=== PATIENT | female | born 2000 | race Caucasian/White ===

== ENCOUNTER → 2019-03-29 10:27 | Outpatient (CLI) | payer OTHER, SELFPAY ==
[2019-03-29 10:07] VITALS: BMI 25.0
[2019-03-29 13:24] LABS: HIV - WCH Non-Reactive (Nonreactive)
[2019-03-30 20:07] LABS: Hepatitis Be Ab Negative (Negative)
[2019-03-30 20:33] LABS: Hepatitis B Core AB IgM Negative (Negative)
== END ==
PROVIDERS: Family Provider Student in an Organized Health Care Education/Training Program; PCP Student in an Organized Health Care Education/Training Program; Referring Provider Physician Assistant Surgical; Visit Provider Physician Assistant Surgical
DX: Z77.21 Contact with and (suspected) exposure to potentially hazardous body fluids (principal)
CPT/HCPCS: 36415; 86703; 86705; 86707

== ENCOUNTER → 2020-03-08 14:30 | Outpatient (CLI) | payer BC, SELFPAY ==
[2020-03-08 09:45] VITALS: BMI 25.7
[2020-03-11 03:06] LABS: Chlamydia By Nucleic Acid AMP Negative (Negative)
[2020-03-11 10:32] LABS: Gonococcus By Nucleic Acid AMP Negative (Negative)
[2020-03-13 14:30] LABS: HPV Reflexed? NOT INDICATED
== END ==
PROVIDERS: Visit Provider Nurse Practitioner Women's Health
DX: Z12.4 Encounter for screening for malignant neoplasm of cervix (principal); Z11.3 Encounter for screening for infections with a predominantly sexual mode of transmission
CPT/HCPCS: 87491; 87591; 88175; G0145

== ENCOUNTER → 2020-11-02 15:26 | Outpatient (CLI) | payer BC, SELFPAY ==
[2020-10-31 10:10] VITALS: BMI 25.0
--- NOTE | 2020-11-02 15:29 | US_ITS ---
STUDY: ULTRASOUND OF THE FEMALE PELVIS - COMPLETE REASON FOR EXAM: Female, 20 years old. Pain, iud LMP: Unknown TECHNIQUE: Transabdominal and Transvaginal TECHNICAL QUALITY: Adequate. COMPARISON: None. FINDINGS: The uterus is anteverted and is in a midline position. The uterus measures 7.4 cm x 3.2 cm x 2.8 cm. Normal uterine cervix. The endometrium measures 2.6 mm in thickness, and is hyperechoic. There is no demonstrated endometrial mass. There is no demonstrated myometrial mass. Heterogeneous appearance of the myometrium. I.U.D. - The patient does have an I.U.D.. The IUD is in the right side of the fundal portion of the uterus. The right ovary is visualized. The right ovary measures 2.8 cm x 3.6 cm x 2.3 cm. There is no right ovarian cyst or ovarian mass. There is no visualized right adnexal mass or complex lesion. There is normal arterial and normal venous vascularity. The left ovary is visualized. The left ovary measures 3.6 cm x 2.65 x 2.1 cm. There is no left ovarian cyst or ovarian mass. There is no visualized left adnexal mass or complex lesion. There is normal arterial and normal venous vascularity. There is no fluid in the cul-de-sac. The pre void volume of the bladder was 279 ml. US/Transvaginal Non- IMPRESSION: The IUD is seen within the fundal portion of the uterus to the right side of the midline. Electronically Signed: Ricky Pratt MD at 8:23 EDT , Service support ,
--- NOTE | 2020-11-02 15:29 | US_ITS ---
STUDY: ULTRASOUND OF THE FEMALE PELVIS - COMPLETE REASON FOR EXAM: Female, 20 years old. Pain, iud LMP: Unknown TECHNIQUE: Transabdominal and Transvaginal TECHNICAL QUALITY: Adequate. COMPARISON: None. FINDINGS: The uterus is anteverted and is in a midline position. The uterus measures 7.4 cm x 3.2 cm x 2.8 cm. Normal uterine cervix. The endometrium measures 2.6 mm in thickness, and is hyperechoic. There is no demonstrated endometrial mass. There is no demonstrated myometrial mass. Heterogeneous appearance of the myometrium. I.U.D. - The patient does have an I.U.D.. The IUD is in the right side of the fundal portion of the uterus. The right ovary is visualized. The right ovary measures 2.8 cm x 3.6 cm x 2.3 cm. There is no right ovarian cyst or ovarian mass. There is no visualized right adnexal mass or complex lesion. There is normal arterial and normal venous vascularity. The left ovary is visualized. The left ovary measures 3.6 cm x 2.65 x 2.1 cm. There is no left ovarian cyst or ovarian mass. There is no visualized left adnexal mass or complex lesion. There is normal arterial and normal venous vascularity. There is no fluid in the cul-de-sac. The pre void volume of the bladder was 279 ml. US/Pelvic (Non ) IMPRESSION: The IUD is seen within the fundal portion of the uterus to the right side of the midline. Electronically Signed: Ricky Pratt MD at 8:23 EDT , Service support ,
== END ==
PROVIDERS: Referring Provider Nurse Practitioner Women's Health; Visit Provider Nurse Practitioner Women's Health
DX: R10.2 Pelvic and perineal pain (principal); Z30.431 Encounter for routine checking of intrauterine contraceptive device
CPT/HCPCS: 76830; 76856

== ENCOUNTER → 2020-12-14 | Outpatient (CLI) | payer BC, SELFPAY | END | disposition home or self-care (01) | LOC: LABSPEC 16:21 | PROVIDERS: Referring Provider Nurse Practitioner Women's Health; Visit Provider Nurse Practitioner Women's Health | DX: N76.0 Acute vaginitis (principal); R30.9 Painful micturition, unspecified | CPT/HCPCS: 87070; 87086; 87205 ==

== ENCOUNTER → 2021-02-20 08:38 | Outpatient (CLI) | payer BC, SELFPAY ==
[2021-02-20 12:23] LABS: Absolute Lymphocyte Count 2.49 X10^3/uL (0.83-4.51); Absolute Neutrophil Count 3.2 X10^3/uL (2.0-7.7); Basophil# 0.03 X10^3/uL; Basophil% 0.5 % (0-1); Eosinophil# 0.16 X10^3/uL; Eosinophils% 2.5 % (0-5); Hematocrit 39.9 % (37-47); Hemoglobin 13.1 g/dL (12.0-15.0); Lymphocyte # 2.49 X10^3/ul (0.83-4.51); Lymphocyte % 39.1 % (19-41); Mean Corp Hgb Conc 32.8 g/dL (32-36); Mean Corpuscular Volume 91.5 fL (81-99); Mean Platelet Vol. 11.1 fl (6.2-12.0); Monocyte# 0.53 X10^3/uL; Monocyte% 8.3 % (0-10); NRBC Flagged by Analyzer 0 % (0-5); Neutrophil # 3.15 X10^3/uL (2.7-7.7); Neutrophil % 49.4 % (47-70); Platelet Count 280 K/mm3 (150-450); RBC Distribution Width CV 12.3 % (11.6-14.6); RBC Distribution Width SD 41.2 fl (35.1-43.9); Red Blood Count 4.36 M/mm3 (4.2-5.4); White Blood Count 6.4 K/mm3 (4.4-11.0)
[2021-02-20 12:37] LABS: Vitamin D,25 Hydroxy 26.8 ng/mL
[2021-02-20 12:55] LABS: ALB/GLOB Ratio 1.3 RATIO (0.9-2.4); AST(SGOT) 15 U/L (15-37); Alanine Aminotransfer ALT/SGPT 27 U/L (13-56); Albumin, Serum 3.7 g/dL (3.2-5.0); Alkaline Phosphatase 55 U/L (45-117); Anion Gap 6 (5-15); BUN 14 mg/dL (7-18); BUN/Creat Ratio 15.9 RATIO (10-20); Calcium,Total 8.7 mg/dL (8.5-10.1); Chloride 107 mmol/L (98-107); Creatinine, Serum 0.88 mg/dL (0.55-1.02); EST Glomerular Filtration Rate 85 mL/min (>60); Est Glom Filt Rate - Afr Amer 102 mL/min (>60); Globulin 2.9 g/dL (2.2-4.2); Glucose 85 mg/dL (74-106); Potassium 3.9 mmol/L (3.5-5.1); Protein, Total 6.6 g/dL (6.4-8.2); Sodium Level 138 mmol/L (136-145); T4 Free Direct 0.98 ng/dL (0.76-1.46); Thyroid Stim Hormone (TSH) 1.53 uIU/mL (0.358-3.74)
== END ==
PROVIDERS: PCP Internal Medicine; Referring Provider Internal Medicine; Visit Provider Internal Medicine
DX: K58.9 Irritable bowel syndrome, unspecified (principal); Z13.29 Encounter for screening for other suspected endocrine disorder
CPT/HCPCS: 36415; 80053; 82306; 84439; 84443; 85025

== ENCOUNTER 2021-06-29 10:09 | Outpatient (CLI) | payer BC, SELFPAY ==
[2021-06-29 10:12] LABS: Bacteria 0 SEEN /hpf (None Seen); Mucous, Urine 0 SEEN /hpf (<or=2+); Red Blood Cells-Urine 0 SEEN /hpf (0-5); White Blood Cells 0 SEEN /hpf (0-5)
[2021-06-29 12:13] LABS: Color, Urine Yellow (Yellow); Glucose, Dipstick Normal (Normal); Ketone-Dipstick Negative (Negative); Leukocyte Esterase-Dipstick Negative /ul (Negative); Nitrite-Dipstick Negative (Negative); Occult Blood-Urine Negative /ul (Negative); Protein-Dipstick Negative (Negative); Urine Bilirubin Dipstick Negative (Negative); Urine Clarity Clear (Clear); Urine Urobilinogen Normal (Normal)
[2021-06-29 12:19] LABS: Squamous Epithelial Cells - UA 0-5 SEEN /hpf (5-10)
== END 2021-06-29 23:59 | disposition home or self-care (01) ==
LOC: LABSPEC 10:10
PROVIDERS: PCP Internal Medicine; Referring Provider Internal Medicine; Visit Provider Internal Medicine
DX: R30.0 Dysuria (principal)
CPT/HCPCS: 81001; 87086; 87088

== ENCOUNTER 2022-03-26 14:35 | Outpatient (CLI) | payer BC, SELFPAY | END 2022-03-26 23:59 | disposition home or self-care (01) | LOC: MTLAB 14:37 | PROVIDERS: Obstetrics & Gynecology; PCP Internal Medicine; Referring Provider Nurse Practitioner Women's Health; Visit Provider Nurse Practitioner Women's Health | DX: N92.6 Irregular menstruation, unspecified (principal) | CPT/HCPCS: 36415 ==

== ENCOUNTER → 2022-07-13 | Outpatient (CLI) | payer BC, SELFPAY ==
[2022-07-13 09:08] LABS: T4 Free Direct 1.28 ng/dL (0.76-1.46); Thyroid Stim Hormone (TSH) 0.92 uIU/mL (0.358-3.74)
[2022-07-16 16:31] LABS: Vitamin D 1,25-Dihydroxy 41.2 pg/mL (24.8-81.5)
[2022-07-19 09:44] LABS: Testosterone Free 0.5 pg/mL (0.0-4.2)
== END | disposition home or self-care (01) ==
LOC: LAB 07:55
PROVIDERS: PCP Internal Medicine; Visit Provider Registered Nurse
DX: Z31.69 Encounter for other general counseling and advice on procreation (principal)
CPT/HCPCS: 36415; 82627; 82652; 84402; 84439; 84443; 82626

== ENCOUNTER → 2022-12-09 | Outpatient (CLI) | payer BC, SELFPAY ==
--- NOTE | 2022-12-09 14:24 | US_ITS ---
EXAM: US PELVIS TRANSABDOMINAL AND TRANSVAGINAL, COMPLETE CLINICAL INDICATION: abdominal pain TECHNIQUE: Transabdominal and endovaginal pelvic ultrasound was performed with grayscale and color Doppler imaging. Endovaginal imaging was used for better evaluation of the endometrium and adnexa. COMPARISON: US Pelvis Transabdominal Endovaginal dated 11/02/2020 FINDINGS: UTERUS/CERVIX: Normal. The uterus measures 8.3 x 3.8 x 3.2 cm. The endometrial stripe measures 0.5 cm in thickness. Interval removal of the IUD. RIGHT OVARY: Right ovary 4.6, 4.1, 2.9. 3.3 cm right ovarian cyst. Blood flow is present in the right ovary. LEFT OVARY: Normal. Blood flow is present in the left ovary. The left ovary measures 3.6 x 2.5 x 2.3 cm. FREE FLUID: No adnexal mass or free pelvic fluid. US/Pelvic (Non ) IMPRESSION: Dominant 3.3 cm right ovarian cyst which is likely physiologic in nature. Normal uterus and left ovary. Pending Final Proof Editing
--- NOTE | 2022-12-09 14:24 | US_ITS ---
EXAM: US PELVIS TRANSABDOMINAL AND TRANSVAGINAL, COMPLETE CLINICAL INDICATION: abdominal pain TECHNIQUE: Transabdominal and endovaginal pelvic ultrasound was performed with grayscale and color Doppler imaging. Endovaginal imaging was used for better evaluation of the endometrium and adnexa. COMPARISON: US Pelvis Transabdominal Endovaginal dated 11/02/2020 FINDINGS: UTERUS/CERVIX: Normal. The uterus measures 8.3 x 3.8 x 3.2 cm. The endometrial stripe measures 0.5 cm in thickness. Interval removal of the IUD. RIGHT OVARY: Right ovary 4.6, 4.1, 2.9. 3.3 cm right ovarian cyst. Blood flow is present in the right ovary. LEFT OVARY: Normal. Blood flow is present in the left ovary. The left ovary measures 3.6 x 2.5 x 2.3 cm. FREE FLUID: No adnexal mass or free pelvic fluid. US/Transvaginal Non- IMPRESSION: Dominant 3.3 cm right ovarian cyst which is likely physiologic in nature. Normal uterus and left ovary. Electronically Signed: Edgar Almonte MD at 15:25 EDT ,
== END | disposition home or self-care (01) ==
LOC: US 14:24
PROVIDERS: PCP Internal Medicine; Referring Provider Registered Nurse; Visit Provider Registered Nurse
DX: R10.2 Pelvic and perineal pain (principal)
CPT/HCPCS: 76830; 76856

== ENCOUNTER → 2023-01-15 | Outpatient (CLI) | payer BC, SELFPAY ==
--- NOTE | 2023-01-15 11:42 | RAD_ITS ---
INDICATION: INFERTILITY EXAMINATION/TECHNIQUE: Routine hysterosalpingography was performed. Total Fluoroscopic Time: 25 seconds AND number of Fluoroscopic Images: 2 FINDINGS: The uterine cavity contour is unremarkable. Unicornuate uterus. There are no filling defects or abnormalities. The left fallopian tube is patent with free peritoneal spillage bilaterally. RAD/Salpingogram IMPRESSION: Patency of the left fallopian tube. Electronically Signed: Ricky Pratt MD at 14:35 EDT ,
--- NOTE | 2023-01-27 17:18 | OP.PCM_ITS ---
Report of Operation Date of Procedure: 01/15/23 Pre-Operative Diagnosis: infertility Post-Operative Diagnosis: infertility Surgery/Procedure Performed:: hysterosalpingogram Description of Surgical Findings:: Preop diagnosis: Infertility Postop diagnosis:Infertility , left tubal patency Procedure: Hysterosalpingogram Surgeon:Crystal Leonardo DO Implantable devices: None Complications: None Findings: Bilateral tubal patency and normal uterine cavity Operative details: Patient was taken to the x-ray room and was placed on the x- ray table and was in the dorsal lithotomy position. Speculum was placed in the vagina and the cervix prepped with Betadine and the HSG catheter was easily introduced into the uterus and speculum removed. Radiologist was brought in and while pushing radiopaque dye into the uterus via the HSG catheter the radiologist took multiple images and views and confirmed left tubal patency. No gross uterine filling defects or abnormalities were seen. All instruments removed from the vagina and the uterus without complication. Patient tolerated the procedure well. Surgeon: Crystal Leonardo exceptional children teacher assistant: None Type of Anesthesia: None Multi Select Codes Urinary/Genital Urinary/Genital CPT Codes: 45473 HSG/SIS
== END | disposition home or self-care (01) ==
PROVIDERS: PCP Internal Medicine; Visit Provider Obstetrics & Gynecology
DX: N97.9 Female infertility, unspecified (principal); R10.9 Unspecified abdominal pain
CPT/HCPCS: 58340; 74740; Q9967

== ENCOUNTER → 2023-01-20 | Outpatient (CLI) | payer BC, SELFPAY ==
[2023-01-20 12:33] LABS: HIV - WCH Non-Reactive (Nonreactive); Hepatitis B Surface Antigen Non-Reactive (Nonreactive); Hepatitis C Antibody Non-Reactive (Nonreactive); Rubella IgG Reactive (Nonreactive); Syphilis Antibodies Non-reactive
[2023-01-20 14:33] LABS: ALB/GLOB Ratio 1.3 RATIO (0.9-2.4); AST(SGOT) 11 U/L (15-37); Alanine Aminotransfer ALT/SGPT 19 U/L (13-56); Alkaline Phosphatase 58 U/L (45-117); Anion Gap 6 (5-15); BUN 10 mg/dL (7-18); BUN/Creat Ratio 11.7 RATIO (10-20); Calcium,Total 8.8 mg/dL (8.5-10.1); Chloride 106 mmol/L (98-107); Creatinine, Serum 0.85 mg/dL (0.55-1.02); EST Glomerular Filtration Rate 86 mL/min (>60); Est Glom Filt Rate - Afr Amer 105 mL/min (>60); Globulin 3.1 g/dL (2.2-4.2); Glucose 93 mg/dL (74-106); Potassium 3.6 mmol/L (3.5-5.1); Prolactin 22.6 ng/mL; Protein, Total 7.1 g/dL (6.4-8.2); Sodium Level 139 mmol/L (136-145); Thyroid Stim Hormone (TSH) 1.25 uIU/mL (0.358-3.74)
[2023-01-21 07:08] LABS: V-Zoster IgG (Immunity) 2524 index (Immune >165)
[2023-01-23 05:07] LABS: 17-Hydroxyprogesterone 45 ng/dL (.)
== END | disposition home or self-care (01) ==
LOC: LAB 10:53
PROVIDERS: PCP Internal Medicine; Referring Provider Obstetrics & Gynecology Reproductive Endocrinology; Visit Provider Obstetrics & Gynecology Reproductive Endocrinology
DX: Z00.00 Encounter for general adult medical examination without abnormal findings (principal); E03.9 Hypothyroidism, unspecified; Z11.59 Encounter for screening for other viral diseases; Z11.4 Encounter for screening for human immunodeficiency virus [HIV]; Z11.3 Encounter for screening for infections with a predominantly sexual mode of transmission; Z13.29 Encounter for screening for other suspected endocrine disorder; R73.09 Other abnormal glucose
CPT/HCPCS: 36415; 80053; 82627; 83036; 83498; 84146; 84403; 84443; 86703; 86762; 86780; 86787; 86803; 86850; 86900; 86901; 87340; 87491; 87591; 82626

== ENCOUNTER → 2023-02-07 | Outpatient (CLI) | payer BC, SELFPAY ==
--- NOTE | 2023-02-07 16:22 | US_ITS ---
STUDY: RENAL ULTRASOUND - COMPLETE REASON FOR EXAM: Female, 22 years old. UNICORNATE UTERUS TECHNIQUE: Ultrasound evaluation of the kidneys was performed with real-time and static garcia-scale imaging. COMPARISON: None. FINDINGS: RIGHT KIDNEY: Normal location of the right kidney, which is normal in size. The right kidney measures 10.5 cm. There is a normal cortex of the right kidney. The renal cortex measures 1.0 cm. There is no right renal mass or cyst. There are no right renal calculi. There is no right hydronephrosis. DISTAL RIGHT URETER: There is non-visualization of the distal right ureter. There is no demonstrated right ureterovesical junction calculus. There is a visualized right ureteral jet. LEFT KIDNEY: Normal location of the left kidney, which is normal in size. The left kidney measures 11.5 cm. There is a normal cortex of the left kidney. The renal cortex measures 1.1 cm. There is no left renal mass or cyst. There are no left renal calculi. There is no left hydronephrosis. DISTAL LEFT URETER: There is non-visualization of the distal left ureter. There is no demonstrated left ureterovesical junction calculus. There is a visualized left ureteral jet. BLADDER: The distended urinary bladder has a volume of 200 ml. The empty urinary bladder has a volume of ml. There is a normal wall thickness of the distended urinary bladder. There is no demonstrated mass within the urinary bladder. There are no demonstrated bladder calculi. US/Kidney and Bladder IMPRESSION: Normal ultrasound of the kidneys and urinary bladder. Electronically Signed: Jefferson Lima MD at 23:25 EDT ,
== END | disposition home or self-care (01) ==
LOC: US 16:21
PROVIDERS: PCP Internal Medicine; Referring Provider Obstetrics & Gynecology Reproductive Endocrinology; Visit Provider Obstetrics & Gynecology Reproductive Endocrinology
DX: Q51.4 Unicornate uterus (principal)
CPT/HCPCS: 76770

== ENCOUNTER → 2023-08-08 | Outpatient (CLI) | payer SELFPAY ==
[2023-08-12 00:07] LABS: Chlamydia By Nucleic Acid AMP Negative (Negative); Gonococcus By Nucleic Acid AMP Negative (Negative)
[2023-08-14 20:18] LABS: HPV Reflexed? NOT INDICATED
== END | disposition home or self-care (01) ==
PROVIDERS: PCP Internal Medicine; Referring Provider Obstetrics & Gynecology; Visit Provider Obstetrics & Gynecology
DX: O09.90 Supervision of high risk pregnancy, unspecified, unspecified trimester (principal); Z3A.00 Weeks of gestation of pregnancy not specified; Z12.4 Encounter for screening for malignant neoplasm of cervix
CPT/HCPCS: 87086; 87088; 87491; 87591; 88175; G0145

== ENCOUNTER → 2023-09-02 | Outpatient (CLI) | payer BC, SELFPAY ==
[2023-09-02 14:18] LABS: Absolute Lymphocyte Count 2.11 X10^3/uL (0.83-4.51); Basophil# 0.05 X10^3/uL; Basophil% 0.6 % (0-1); Eosinophil# 0.07 X10^3/uL; Eosinophils% 0.8 % (0-5); Hematocrit 37.6 % (37-47); Hemoglobin 12.5 g/dL (12.0-15.0); Lymphocyte # 2.11 X10^3/ul (0.83-4.51); Lymphocyte % 24.3 % (19-41); Mean Corp Hgb Conc 33.2 g/dL (32-36); Mean Corpuscular Hgb 29.1 pg (27.0-32.0); Mean Corpuscular Volume 87.4 fL (81-99); Mean Platelet Vol. 10.7 fl (6.2-12.0); Monocyte# 0.45 X10^3/uL; Monocyte% 5.2 % (0-10); NRBC Flagged by Analyzer 0 % (0-5); Neutrophil % 68.9 % (47-70); Platelet Count 264 K/mm3 (150-450); RBC Distribution Width CV 12.6 % (11.6-14.6); RBC Distribution Width SD 39.9 fl (35.1-43.9); White Blood Count 8.7 K/mm3 (4.4-11.0)
[2023-09-02 15:43] LABS: HIV - WCH Non-Reactive (Nonreactive); Hepatitis B Surface Antigen Non-Reactive (Nonreactive); Hepatitis C Antibody Non-Reactive (Nonreactive); Rubella IgG Reactive (Nonreactive); Syphilis Antibodies Non-reactive
== END | disposition home or self-care (01) ==
PROVIDERS: PCP Internal Medicine; Referring Provider Obstetrics & Gynecology; Visit Provider Obstetrics & Gynecology
DX: O09.90 Supervision of high risk pregnancy, unspecified, unspecified trimester (principal); Z3A.00 Weeks of gestation of pregnancy not specified
CPT/HCPCS: 36415; 85025; 86703; 86762; 86780; 86803; 86850; 86900; 86901; 87340

== ENCOUNTER → 2023-10-07 | Outpatient (CLI) | payer BC, SELFPAY | END | disposition home or self-care (01) | PROVIDERS: PCP Internal Medicine; Referring Provider Nurse Practitioner Women's Health; Visit Provider Nurse Practitioner Women's Health | DX: Z36.9 Encounter for antenatal screening, unspecified (principal) | CPT/HCPCS: 36415 ==

== ENCOUNTER → 2023-11-03 | Outpatient (CLI) | payer BC, SELFPAY | END | disposition home or self-care (01) | PROVIDERS: PCP Internal Medicine; Referring Provider Advanced Practice Midwife; Visit Provider Advanced Practice Midwife | DX: N89.8 Other specified noninflammatory disorders of vagina (principal) | CPT/HCPCS: 87070; 87205 ==

== ENCOUNTER → 2024-01-02 | Outpatient (CLI) | payer BC, SELFPAY ==
[2024-01-02 13:45] LABS: Absolute Lymphocyte Count 1.84 X10^3/uL (0.83-4.51); Absolute Neutrophil Count 8.3 X10^3/uL (2.0-7.7); Basophil# 0.02 X10^3/uL; Basophil% 0.2 % (0-1); Eosinophil# 0.17 X10^3/uL; Eosinophils% 1.5 % (0-5); Hematocrit 32.4 % (37-47); Hemoglobin 11.1 g/dL (12.0-15.0); Lymphocyte # 1.84 X10^3/ul (0.83-4.51); Lymphocyte % 16.6 % (19-41); Mean Corp Hgb Conc 34.3 g/dL (32-36); Mean Corpuscular Hgb 30.7 pg (27.0-32.0); Mean Corpuscular Volume 89.8 fL (81-99); Mean Platelet Vol. 11.1 fl (6.2-12.0); Monocyte# 0.63 X10^3/uL; Monocyte% 5.7 % (0-10); NRBC Flagged by Analyzer 0 % (0-5); Neutrophil # 8.34 X10^3/uL (2.7-7.7); Neutrophil % 75.4 % (47-70); Platelet Count 218 K/mm3 (150-450); RBC Distribution Width CV 13.1 % (11.6-14.6); RBC Distribution Width SD 42.8 fl (35.1-43.9); Red Blood Count 3.61 M/mm3 (4.2-5.4); White Blood Count 11.1 K/mm3 (4.4-11.0)
[2024-01-02 14:30] LABS: Glucose Challenge Gest 1H 50g 136 mg/dL (70-140)
[2024-01-02 18:13] LABS: HIV - WCH Non-Reactive (Nonreactive); Syphilis Antibodies Non-reactive
== END | disposition home or self-care (01) ==
LOC: LAB 13:19
PROVIDERS: PCP Internal Medicine; Referring Provider Obstetrics & Gynecology; Visit Provider Obstetrics & Gynecology
DX: O09.92 Supervision of high risk pregnancy, unspecified, second trimester (principal); Z13.1 Encounter for screening for diabetes mellitus; Z3A.00 Weeks of gestation of pregnancy not specified
CPT/HCPCS: 36415; 82950; 85025; 86703; 86780

== ENCOUNTER → 2024-01-07 | Outpatient (CLI) | payer BC, SELFPAY ==
[2024-01-07 09:57] LABS: Bedside Glucose 81 mg/dL (74-106)
[2024-01-07 10:30] LABS: Glucose GTT-Gestation. Fasting 88 mg/dL (<105)
[2024-01-07 11:45] LABS: Glucose GTT-Gestational 1 Hr 173 mg/dL (<190)
[2024-01-07 12:49] LABS: Glucose GTT-Gestational 2 Hr 135 mg/dL (<165)
[2024-01-07 14:00] LABS: Glucose GTT-Gestational 3 Hr 77 L (<145)
== END | disposition home or self-care (01) ==
LOC: LAB 09:07
PROVIDERS: PCP Internal Medicine; Referring Provider Obstetrics & Gynecology; Visit Provider Obstetrics & Gynecology
DX: Z13.1 Encounter for screening for diabetes mellitus (principal)
CPT/HCPCS: 36415; 82951; 82952; 82962

== ENCOUNTER → 2024-02-23 | Outpatient (CLI) | payer BC, SELFPAY | END | disposition home or self-care (01) | LOC: LABSPEC 14:53 | PROVIDERS: PCP Internal Medicine; Referring Provider Obstetrics & Gynecology; Visit Provider Obstetrics & Gynecology | DX: O09.92 Supervision of high risk pregnancy, unspecified, second trimester (principal); Z3A.00 Weeks of gestation of pregnancy not specified; O23.599 Infection of other part of genital tract in pregnancy, unspecified trimester | CPT/HCPCS: 87070; 87081; 87205 ==

== ENCOUNTER 2024-03-04 14:06 | Inpatient (IN) | payer BC, SELFPAY ==
[2024-03-04] VITALS (20 sets, daily range): BP systolic 111–137; BP diastolic 63–98; PULSE 74–112; RESP 15–20; TEMP 35.7–36.8; O2SAT 93–100; BMI 32.7
[2024-03-04 13:57] LABS: ROM Internal Control Test YES-OK TO RESULT pt. (Internal QC); ROM Patient Test POSITIVE (Negative)
[2024-03-04 13:58] LABS: Record Kit Lot#, ROM+ K1972
[2024-03-04] MEDS: Lactated Ringers 1,000 ML 999 ML IV (14:45)
[2024-03-04 14:59] LABS: Absolute Lymphocyte Count 1.77 X10^3/uL (0.83-4.51); Absolute Neutrophil Count 7.2 X10^3/uL (2.0-7.7); Basophil# 0.02 X10^3/uL; Basophil% 0.2 % (0-1); Eosinophil# 0.07 X10^3/uL; Eosinophils% 0.7 % (0-5); Hematocrit 33.3 % (37-47); Hemoglobin 11.2 g/dL (12.0-15.0); Lymphocyte # 1.77 X10^3/ul (0.83-4.51); Lymphocyte % 18.2 % (19-41); Mean Corp Hgb Conc 33.6 g/dL (32-36); Mean Corpuscular Hgb 29.3 pg (27.0-32.0); Mean Corpuscular Volume 87.2 fL (81-99); Mean Platelet Vol. 11.9 fl (6.2-12.0); Monocyte% 6.2 % (0-10); NRBC Flagged by Analyzer 0 % (0-5); Neutrophil # 7.21 X10^3/uL (2.7-7.7); Neutrophil % 74.1 % (47-70); Platelet Count 211 K/mm3 (150-450); RBC Distribution Width CV 13.2 % (11.6-14.6); RBC Distribution Width SD 41.1 fl (35.1-43.9); Red Blood Count 3.82 M/mm3 (4.2-5.4); White Blood Count 9.7 K/mm3 (4.4-11.0)
[2024-03-04 15:20] LABS: AST(SGOT) 20 U/L (15-37); Alanine Aminotransfer ALT/SGPT 22 U/L (13-56); Creatinine, Serum 0.54 mg/dL (0.55-1.02); EST Glomerular Filtration Rate 145 mL/min (>60); Est Glom Filt Rate - Afr Amer 175 mL/min (>60); Estimated Creatinine Clearance 181.97 ml/min; Uric Acid 4.4 mg/dL (2.6-6.0)
[2024-03-04 15:24] LABS: Protein, Urine (Random) 15.8 mg/dL (<11.9); Protein:Creat Ratio 130 mg/g CRE (0-200)
[2024-03-04] MEDS: Acetaminophen 500 MG Tablet 1000 MG PO ×2 (15:31→21:32)
[2024-03-04] MEDS: Sodium Citrate/Citric Acid 30 ML UDC PO (15:31)
[2024-03-04 15:34] LABS: Syphilis Antibodies Non-reactive
[2024-03-04] MEDS: Lactated Ringers 1,000 ML 150 ML IV (15:53)
[2024-03-04] MEDS: Azithromycin 500 MG in Dextrose 5%-Water (250mL Bag) 250 ML 250 MG IV (16:10)
--- NOTE | 2024-03-04 16:17 | HP.PCM.OB_ITS ---
HPI - General General Date of Admission: 03/04/24 HPI Narrative MARCELLUS GE, is a 23 y/o @ 38 weeks who presents to L&D with spontaneous rupture of membranes and breech presentation. Maternal Data Information DENISE Calculator Estimated Delivery Date Method Current WG Current Estimate 03/18/24 Manual 38w 0d IVF TRNSFR 07/02 PFSH PFSH Medical History (Updated 03/04/24 @ 15:00 by Chavo Boothe) Infertility Psychiatric disorder Irregular menses Pre-conception counseling Generalized anxiety disorder Burning with urination IBS (irritable bowel syndrome) Seasonal allergies Home Medications ?Medication ?Instructions ?Recorded ?Last Taken ?Type lactobacillus combination no.9 4 4,000 mmu cells PO DAILY 02/20/21 03/03/24 17:00 History billion cell capsule (Adult 50 Gastro/vaginal health 4,000 mmu Plus Probiotic) cells lamotrigine 200 mg tablet 150 mg PO DAILY 08/05/23 03/02/24 17:00 History (Lamictal) 150 mg promethazine 12.5 mg tablet 12.5 mg PO Q6H PRN nausea and 09/23/23 Unknown Rx vomiting #90 tabs PNV 153-FA 400 mcg-om3 35 mg-dha 2 tab PO DAILY 03/04/24 03/03/24 17:00 History 25 mg-epa 5 mg-fish oil chew 2 tabs tablet ( Gummies) famotidine 20 mg tablet (Acid 20 mg PO BID 03/04/24 03/03/24 17:00 History Controller) Allergy/AdvReac Type Severity Reaction Status Date / Time gluten Allergy Intermediate Nausea/Vom/ Verified 03/04/24 13:42 Diarrhea doxycycline Allergy Unknown Hives Verified 03/04/24 13:42 sulfamethoxazole (From Allergy Unknown Hives Verified 03/04/24 13:42 Bactrim) trimethoprim (From Bactrim) Allergy Unknown Hives Verified 03/04/24 13:42 Family History Father Hypertension Myocardial infarction, Onset Age: 55 A-fib Grandmother CHF (congestive heart failure) Diabetes MATERNAL Grandfather Prostate cancer Colon cancer Other Alcoholism Anxiety and depression Arthritis Surgical History [place] teeth extracted S/P tonsillectomy Social History adopted: No household members: spouse 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 pets and animals: Yes pets and animals: dog(s) history of recent travel: No sexually active: Yes Smoking Status: Never smoker alcohol intake: current alcohol intake frequency: a few times a month details: not while substance use type: does not use diet: gluten free well-balanced diet: about half the time caffeine: Yes Type: carbonated beverages Number of servings: 1 eating out: 1-3 times/week during the past year weight has: remained stable what type of physical activity do you participate in: walking frequency: 3-4 times per week duration: 45-60 minutes/day jak/hoahaoism: Orthodoxy seatbelt use: always do you feel safe at home: Yes additional social history: - Shaun Ge History 1 Elective abortions Hx Para 0 Spontaneous abortions Hx # Term Pregnancies Ectopic pregnancies Hx # Pregnancies Multiple births # of living children Visit Details Expected Delivery Route/Plan Labor Preferences- CB/BF classes: february 20 labor support person: [] labor intervention preferences: [] pain management options preferred: natural cut cord/dad catch: [] : [] PP control planned: [] discussed possible routes of delivery and associated risks: [] special requests: [] Plans Covid status: [] Flu vaccine: declined Tdap vaccine: declined Rhogam:na LARC form signed: done movement and labor precautions reviewed. Problem list reviewed and updated with the most current plan of care details and appropriate orders placed. Relevant counseling for the gestational age provided. Continue routine care and follow up unless otherwise noted in visit not es/problem list details OB Flowsheet Initial Weight: Not Recorded Date -?-?-?-?-?-?-?-?-?-?-?-?- EGA Weight BP Urine Prot -?-?-?-?-?-?-?-?-?-?-?-?- Glucose FHR FuHt Pres Dilation -?-?-?-?-?-?-?-?-?-?-?-?- Effaced St Visit Note 08/08/23 -?-?-?-?-?-?-?-?-?-?-?-?- 8w 1d 176 lb 6 oz 127/83 -?-?-?-?-?-?-?-?-?-?-?-?- 170 -?-?-?-?-?-?-?-?-?-?-?-?- JV- CRL consiste nt with embryo transfer. She had the embryos tested. she had a postive carrier test but FOB is negative. 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 09/02/23 -?-?-?-?-?-?-?-?-?-?-?-?- 11w 5d 174 lb 4 oz 121/87 Nega tive -?-?-?-?-?-?-?-?-?-?-?-?- Negative 180 -?-?-?-?--?-?-?-?-?-?-?-?- KW- no vb/crampi ng. MFM scan ordered. FHT with handheld US today 10/07/23 -?-?-?-?-?-?-?-?-?-?-?-?- 16w 5d 175 lb 6 oz 120/72 Nega tive -?-?-?-?-?-?-?-?-?-?-?-?- Negative 162 -?-?-?-?-?-?-?-?-?-?-?-?- MH-No VB. Nausea improving. Reviewed travel and nausea management. MFM US scheduled. echo ordered. AFP today 11/03/23 -?-?-?-?-?-?-?-?-?-?-?-?- 20w 4d 179 lb 124/86 -?-?-?-?-?-?-?-?-?-?-?-?- 155 20 -?-?-?-?-?-?-?-?-?-?-?-?- KW- no vb/crampi ng. had anatomy US last week. has echo scheduled. KW- no vb/cramping. had compa deanna US last week. has echo scheduled. vaginal exam requested for yeast sx. KW- no vb/cramping. had compa deanna US last week. has echo scheduled. vaginal exam requested for yeast sx-rx sent 12/02/23 -?-?-?-?-?-?-?-?-?-?-?-?- 24w 5d 186 lb 108/73 Negative -?-?--?-?-?-?-?-?-?-?-?-?- Negative 140 25 -?-?-?-?-?-?-?-?-?-?-?-?- Sm- no vb lof go od fm no rregualr ctx 01/02/24 -?-?-?-?-?-?-?-?-?-?-?-?- 29w 1d 193 lb 4 oz 123/76 Nega tive -?-?-?-?-?-?-?-?-?-?-?-?- Negative 160 29 -?-?-?-?-?-?-?-?-?-?-?-?- KW no vb/lof/ctx . good fm. LARC and tdap declined. 28week labs pending. 01/12/24 -?-?-?-?-?-?-?-?-?-?-?-?- 30w 4d 196 lb 113/75 Negative -?-?-?-?-?-?-?-?-?-?-?-?- Negative 150 30 -?-?-?-?-?-?-?-?-?-?-?-?- KW- no vb/lof/cr amping. good fm. FMLA papers given. 01/26/24 -?-?-?-?-?-?-?-?-?-?-?-?- 32w 4d 200 lb 109/74 Negative -?-?-?-?-?-?-?-?--?-?-?-?- Negative 140 33 -?-?-?-?-?-?-?-?-?-?-?-?- KW- no vb/lof/ct x. good fm. MFM 36 week growth US ordered. Fetus feels breech on Yoan's. discussed version vs P C/S. She would rather have PC/S if still breech 02/09/24 -?-?-?-?-?-?-?-?-?-?-?-?- 34w 4d 204 lb 133/80 Negative -?-?-?-?-?-?-?-?-?-?-?-?- Negative 140 35 -?-?-?-?-?-?-?-?-?-?-?-?- SM- no vb lof go od fm no reuglar ctx discussed breech presentation 02/23/24 -?-?-?-?-?-?-?-?-?-?-?-?- 36w 4d 204 lb 129/83 Negative -?-?-?-?-?-?-?-?-?-?-?-?- Negative 140 36 Breech -?-?-?-?-?-?-?-?-?-?-?-?- SM- no vb lof go od fm no regular ctx SM- no vb lof good fm no reg ular ctx co some discharge and possible odor- red top sent and gbs sent 03/01/24 -?-?-?-?-?-?-?-?-?-?-?-?- 37w 4d 205 lb 117/84 Negative -?-?-?-?-?-?-?--?-?-?-?-?- Negative 140 Breech -?-?-?-?-?-?-?-?-?-?-?-?- KW- no vb/lof/ct x. good fm. no concerns today ROS Constitutional Constitutional: Denies change in weight, fatigue, fever(s), headache(s), poor appetite or weakness Eyes Eyes: Denies blurry vision, change in vision, seeing flashes or spots in vision ENT HEENT: Denies dizziness, headache(s), loss taste/smell or sore throat Cardiovascular Cardiovascular: Denies chest pain, dizziness, dyspnea, irregular heart rhythm, leg edema, palpitations, rapid heart rate or vomiting Respiratory/Chest Respiratory/Chest: Denies chest tightness, cough, dyspnea or breast pain Gastrointestinal Gastrointestinal: Denies abdominal pain, anorexia, constipation, cramping, diarrhea, hemorrhoids, vomiting or weight changes Genitourinary Genitourinary: Denies dysuria, flank pain, genital lesions, genital pain, urinary frequency or urinary urgency Musculoskeletal Musculoskeletal: Denies back pain, difficulty walking, joint pain, limited range of motion, muscle cramps or numbness Integumentary Integumentary: Denies lesions or unusual bruising Neurologic Neurologic: Denies abnormal movements, abnormal speech, dizziness, numbness, seizure-like activity or syncope Psychiatric Psychiatric: Denies anxiety, behavioral changes, change in appetite, change in libido, cognitive impairment, confusion, depression, difficulty concentrating, hallucinations or suicidal thoughts Endocrine Endocrinology: Denies excessive sweating, polydipsia or polyuria Hematologic/Lymphatic Hematologic/Lymphatic: Denies easy bleeding, easy bruising or lymphadenopathy Allergic/Immunologic Allergic/Immunologic: Denies itchy eyes, lip swelling, seasonal rhinorrhea, rhinitis, throat swelling, tongue swelling, eczemia, wheezing or asthma Vital Signs Vital Signs Vital Signs: 03/04/24 13:26 03/04/24 13:26 03/04/24 13:26 Temperature Temperature Source Temporal Pulse Rate 107 H Respiratory Rate Blood Pressure 131/81 H BP Systolic 131 BP Diastolic 81 Pulse Ox 03/04/24 13:26 03/04/24 13:26 03/04/24 13:29 Temperature 98.2 F Temperature Source Pulse Rate 96 Respiratory Rate 18 Blood Pressure BP Systolic BP Diastolic Pulse Ox 03/04/24 13:29 03/04/24 13:34 03/04/24 13:34 Temperature Temperature Source Pulse Rate 99 Respiratory Rate Blood Pressure BP Systolic BP Diastolic Pulse Ox 98 97 03/04/24 13:55 03/04/24 13:55 03/04/24 14:15 Temperature Temperature Source Pulse Rate 112 H Respiratory Rate Blood Pressure 136/98 H 127/80 H BP Systolic 136 127 BP Diastolic 98 80 Pulse Ox 03/04/24 14:15 03/04/24 15:36 03/04/24 15:36 Temperature Temperature Source Pulse Rate 81 79 Respiratory Rate Blood Pressure 130/83 H BP Systolic 130 BP Diastolic 83 Pulse Ox Weight Weight: 202 lb 13.204 oz Body Mass Index (BMI) 32.7 Physical Exam Const alert, oriented x3, no apparent distress and healthy appearing General Appearance: cooperative; Negative for anxious HEENT normocephalic Face and Sinus: normal facial exam Eyes EOMs intact bilaterally and no scleral icterus General Eye: normal appearance of both eyes Neck full ROM and supple Lymph Lymphatic: no lymphadenopathy noted Chest Chest: abnormal inspection of the chest Resp normal respiratory effort Effort and Inspection: able to speak in complete sentences Cardio regular rate GI soft to palpation and non-tender Inspection: gravid Palpation: soft; Negative for tender external exam normal Amniotic Fluid: ROM+plus Back/Spine no CVA tenderness Extremity normal to inspection, full ROM and no clubbing, cyanosis or edema General Extremity: Negative for calf tenderness or edema Skin Lesions: no lesions Rashes: no rashes Psych mental status grossly normal Labs Labs Labs: Blood Type O POSITIVE Antibody Screen NEGATIVE Hct 33.3 % (37-47) L Hgb 11.2 g/dL (12.0-15.0) L Syphilis Total Ab Non-reactive VZV IgG Antibody 2524 index (Immune >165) Rubella IgG Antibody Reactive (Nonreactive) Hep Bs Antigen Non-Reactive (Nonreactive) Hepatitis C Antibody Non-Reactive (Nonreactive) Chlamydia DNA ([facility]) Negative (Negative) N.gonorrhoeae DNA ([facility]) Negative (Negative) HIV 1&2 Antibody Non-Reactive (Nonreactive) Glucose 1 Hr 50 gm 136 mg/dL (70-140) Gest Glucose Tolerance MG/DL Miscellaneous Test Assessment & Plan (1) Breech presentation: COMMENT: unicornuate uterus, primary csection scheduled for 03/12 @ 7:15 with SM, will cancel if spontaneously converts, (2) Abnormal glucose level: COMMENT: Nl 3 hr GTT (3) Consumes gluten free diet: (4) Unicornuate uterus: (5) In vitro fertilization: COMMENT: 5 day embryo transfer on 07/03/23. echo 22-24 wk. growth US at 36 weeks, weekly nsts at 36 delivery 39. (6) Supervision of high-risk : QUALIFIERS: Trimester: second trimester Qualified Code(s): O09.92 - Supervision of high risk , unspecified, second trimester COMMENT: PRR , DENISE 03/18/24, boy Mamadou Shaun (7) : QUALIFIERS: Weeks of gestation: 37 weeks Qualified Code(s): Z3A.37 - 37 weeks gestation of COMMENT: GBS neg, nl anatomy, already had genetic & Carrier testing with infertility doctors; AFP done: (8) Infertility: (9) Depression: QUALIFIERS: Depression Type: unspecified Qualified Code(s): F32.A - Depression, unspecified (10) Bipolar 2 disorder: COMMENT: on lamictal. given no nipple discharge and regular menses, prolactin not obtained. low likelihood. (11) Generalized anxiety disorder: COMMENT: stable (12) IBS (irritable bowel syndrome): QUALIFIERS: Irritable bowel syndrome type: with constipation Qualified Code(s): K58.1 - Irritable bowel syndrome with constipation PLAN: Plan After discussing the patient's diagnosis and treatment plan options, patient wishes to proceed with surgical management. I have discussed with the patient the risks, benefits, and alternatives of the procedure which include but are not limited to risks of anesthesia, bleeding, infection, possible damage to bowel, bladder, or surrounding vasculature which could lead to additional surgery to evaluate any complications. Patient agrees to procedure and wishes to proceed. ACOG/uptodate references given for additional information regarding procedure.
--- NOTE | 2024-03-04 16:18 | DCINST_ITS ---
Discharge Instructions Diet Discharge Diet: No restrictions Activity Discharge Activity: May Not Drive (for 2 weeks or while taking narcotic pain medications.), May Shower and May Take a Tub Bath (in 7 days.) May resume sexual activity in: 4-6 weeks Weight Bearing Status: Full weight bearing Lifting Restrictions: 20 pounds Dressing / Incision Call your doctor if your incision/area has: Continuous Slow Oozing, Sudden Increased Bleeding, Increased Pain/ Swelling, Increased Redness and Foul Smelling Discharge Call your doctor if you observe: Fever of 101 or Higher and Using more than 1 pad per hour Suture Line Care: Avoid Pulling/Pushing and Avoid Pinching/Bending Cleanse incision/area with: Soap & Water and Keep Dressing Clean & Dry Follow Up Care Please Follow Up With: Crystal Leonardo DO When: Call [phone] to make an appointment for an incision check in 1-2 weeks. Test Results: Test results from this visit will be discussed in further detail at your follow- up appointment, if applicable. Discharge Plan Admission Admit Date/Time: 03/04/24 14:06 Primary Reason for Your Visit: section Attending Provider: Crystal Leonardo Primary Care Provider: Marbella Park Discharge Orders/Prescriptions Prescriptions: New ibuprofen 800 mg tablet 800 mg PO Q8H PRN (Reason: pain) Qty: 30 0RF oxycodone-acetaminophen [Percocet] 5-325 mg tablet 1 tab PO Q4H PRN (Reason: pain) 7 Days Qty: 20 0RF Rx Instructions: 1-2 tabs q 4 hrs as needed for pain Continued Adult 50 Plus Probiotic 4 billion cell capsule 4,000 mmu cells PO DAILY lamotrigine [Lamictal] 200 mg tablet 150 mg PO DAILY Gummies 400 mcg-35 mg- 25 mg-5 mg tablet,chewable 2 tab PO DAILY famotidine [Acid Controller] 20 mg tablet 20 mg PO BID Discontinued promethazine 12.5 mg tablet 12.5 mg PO Q6H PRN (Reason: nausea and vomiting) Qty: 90 1RF Rx Instructions: 1-2 tabs PO every 6 hours as needed for nausea/vomiting Referrals / Follow Up: Marbella Park MD [Primary Care Provider] - Disposition Disposition (needs filled in before D/C Order can be placed): Home, Self Care
[2024-03-04] MEDS: Cefazolin 2 GM in Syringe IV (16:20)
[2024-03-04] MEDS: Oxytocin 15 Units/NS 250ml 15 UNITS/250 ML IV.SOLN 83 UNITS IV (17:30)
--- NOTE | 2024-03-04 17:38 | OP.PCM_ITS ---
Assessment & Plan (1) Breech presentation: COMMENT: unicornuate uterus, primary csection scheduled for 03/12 @ 7:15 with SM, will cancel if spontaneously converts, (2) Abnormal glucose level: COMMENT: Nl 3 hr GTT (3) Consumes gluten free diet: (4) Unicornuate uterus: (5) In vitro fertilization: COMMENT: 5 day embryo transfer on 07/03/23. echo 22-24 wk. growth US at 36 weeks, weekly nsts at 36 delivery 39. (6) Supervision of high-risk : QUALIFIERS: Trimester: second trimester Qualified Code(s): O09.92 - Supervision of high risk , unspecified, second trimester COMMENT: PRR , DENISE 03/18/24, boy Mamadou Shaun (7) : QUALIFIERS: Weeks of gestation: 37 weeks Qualified Code(s): Z3A.37 - 37 weeks gestation of COMMENT: GBS neg, nl anatomy, already had genetic & Carrier testing with infertility doctors; AFP done: (8) Infertility: (9) Bipolar 2 disorder: COMMENT: on lamictal. given no nipple discharge and regular menses, prolactin not obtained. low likelihood. (10) Depression: QUALIFIERS: Depression Type: unspecified Qualified Code(s): F32.A - Depression, unspecified (11) IBS (irritable bowel syndrome): QUALIFIERS: Irritable bowel syndrome type: with constipation Qualified Code(s): K58.1 - Irritable bowel syndrome with constipation (12) Generalized anxiety disorder: COMMENT: stable (13) Seasonal allergies: Maternal Data Information DENISE Calculator Estimated Delivery Date Method Current WG Current Estimate 03/18/24 Manual 38w 0d IVF TRNSFR 07/02 Final DENISE: 03/18/24 [place] Doctor Who Attended Delivery: Pascual Beth Operative Report (OB) Cecarean Details Procedure Type: low transverse Surgeon: Crystal Leonardo Date of Procedure: 03/04/24 Procedure Start Time: 16:31 Procedure Stop Time: 17:02 Time of Delivery: 16:37 Pre-Operative Diagnosis: Breech and Other (spontaneous rupture of membranes ) Other Pre-Operative diagnosis: none Post-Operative Diagnosis: Same as Pre-operative diagnosis Classification: ALICE Type of Anesthesia: Spinal Antibiotic Given: Ancef 2 grams IV x1 and Zithromax 500 mg/5 mL X1 Drain: Rosario to straight drain Estimated Blood Loss: 300cc Findings Description of surgery: The patient is a 23 y/o @ 38 weeks who presented for a primary for breech and SROM. Spinal anesthesia was placed without difficulty. Rosario catheter was placed. The patient was placed in the dorsal supine position with leftward tilt. Patient was prepped and draped in the normal sterile fashion. Pfannenstiel skin incision was made with the scalpel and carried through to the underlying layer of fascia with the scalpel. Fascia was nicked in the midline and the incision extended laterally. The rectus bellies were dissected off superiorly and inferiorly with out complication both sharply and bluntly. The peritoneum was entered digitally. The incision was stretched and a low transverse uterine incision was made with the scalpel. The infant's feet were delivered first, followed by the torso, then the anterior shoulder, followed by the posterior shoulder and finally the head was delivered atraumatically without complications. The cord was clamped and cut and the was handed off to awaiting nurse. The placenta was delivered spontaneously immediately following and was noted to be intact and have a three-vessel cord. The uterus was exteriorized cleared of all clots and debris, and the incision was closed in a double layer closure using #1Vicryl followed by a #1 Monocryl. The uterus was noted to be abnormal, with one functioning horn and one non-functioning horn. There are 2 ovaries and 2 fallopian tubes that were noted to be within normal limits. The uterus was returned to the maternal abdomen and gutters were cleared of all clots and debris. The peritoneum was closed with 3-0 Monocryl in a running fashion. Fascia was closed with 0 PDS in a running fashion. Subcutaneous tissue was copiously irrigated and the skin was closed with 3-0 Monocryl in a subcuticular fashion. Mepilex dressing was applied without complication. Patient was taken to recovery in stable condition. Surgical findings: abnormal uterus with one functioning horn and one non-functioning horn. bilateral ovaries and fallopian tubes. Viable male . Presentation: Footling Breech Amniotic Membrane Rupture Type: Spontaneous Amniotic Fluid Description: Clear Placental Delivery Description: Manual Removal Specimen collected: No Cord Vessel Description: 3 Vessels Cord Entanglement: None A gender: Male (1 minute): 8 (5 minute): 9 Delayed Cord Clamping: Yes Solar Engineer lamp shades supervisor: Yes Speech And Language Tutor: Fransico Florentino Tasks completed by first assistant manager: Hemostasis: Electrocautery and Retracting Additional staff physical therapy assistant?: No Complications Complications: No Multi Select Codes Urinary/Genital Urinary/Genital CPT Codes: 82078 Delivery [facility]
[2024-03-04] MEDS: Ketorolac 30 MG/ML Syringe IV ×2 (18:18→23:34)
[2024-03-04] MEDS: Lactated Ringers 1,000 ML 100 ML IV (20:31)
[2024-03-04] MEDS: Famotidine 20 MG Tablet PO (21:31)
[2024-03-04] MEDS: lamoTRIgine 150 MG Tablet PO (21:35)
[2024-03-04] MEDS: 0.9% Saline Lock 10 ML Syringe IV (23:34)
[2024-03-05] VITALS (7 sets, daily range): BP systolic 103–118; BP diastolic 59–90; PULSE 81–98; RESP 14–18; TEMP 36.3–36.7; O2SAT 97–99
[2024-03-05] MEDS: Acetaminophen 500 MG Tablet 1000 MG PO ×3 (03:40→15:44)
[2024-03-05] MEDS: Ketorolac 30 MG/ML Syringe IV ×2 (06:05→12:06)
[2024-03-05] MEDS: 0.9% Saline Lock 10 ML Syringe IV (06:05)
--- NOTE | 2024-03-05 07:30 | PN.OBGYN_ITS ---
Subjective Subjective Patient is laying in bed comfortably without complaints. She states that she slept on an off during the night. Lochia is mild and pain is minimal. Objective Data Objective Data Vital Signs: Vital Signs Temp Pulse Resp BP Pulse Ox O2 Del Method 97.8 F 81 16 105/62 97 Room Air 03/05/24 04:08 03/05/24 04:08 03/05/24 04:08 03/05/24 04:08 03/05/24 04:08 03/05/24 04:08 Oxygen Delivery Method Room Air Weight: 202 lb 13.204 oz Body Mass Index (BMI) 32.7 Intake & Output: Intake and Output for Last 24 Hours 03/03/24 03/04/24 03/05/24 23:59 23:59 23:59 Intake Total 1835 / 1835 748.33 / 748.33 Output Total 525 / 525 800 / 800 Balance 1310 / 1310 -51.67 / -51.67 Lab / Micro Data 03/04/24 14:45 03/04/24 14:45 Labs: Laboratory Results - last 24 hr 03/04/24 13:39: Vag Amniotic Fld Detect POSITIVE H 03/04/24 14:45: WBC 9.7, RBC 3.82 L, Hgb 11.2 L, Hct 33.3 L, MCV 87.2, MCH 29.3, MCHC 33.6, RDW Std Deviation 41.1, RDW Coeff of Kristi 13.2, Plt Count 211, MPV 11.9, Immature Gran % (Auto) 0.600, Neut % (Auto) 74.1 H, Lymph % (Auto) 18.2 L, Gallia % (Auto) 6.2, Eos % (Auto) 0.7, Baso % (Auto) 0.2, Absolute Neuts (auto) 7.2, Absolute Lymphs (auto) 1.77, Nucleated RBC % 0, Creatinine 0.54 L, Estim Creat Clear Calc 181.97, Est GFR (MDRD) Af Amer 175, Est GFR (MDRD) Non-Af 145, Uric Acid 4.4, AST 20, ALT 22, Syphilis Total Ab Non-reactive, Blood Type O POSITIVE, Antibody Screen NEGATIVE 03/04/24 14:51: U Random Total Protein 15.8 H, Urine Creatinine 122.00, Protein/Creatinin Ratio 130 ROS Constitutional Constitutional: Reports systems reviewed and no addt'l complaints, except as documented Cardiovascular Cardiovascular: Denies chest pain, dizziness, dyspnea or irregular heart rhythm Respiratory/Chest Respiratory/Chest: Denies cough, pain on inspiration or shortness of breath at rest Gastrointestinal Gastrointestinal: Denies abdominal pain, nausea or vomiting Genitourinary Genitourinary: Denies burning urination Musculoskeletal Musculoskeletal: Denies muscle cramps, muscle spasms or muscle weakness Neurologic Neurologic: Denies confusion, dizziness, headache(s) or lack of coordination Psychiatric Psychiatric: Denies anxiety, behavioral changes or depression Physical Exam HEENT normocephalic Resp normal respiratory effort and normal air movement GI soft to palpation, non-tender and non-distended Rectal Exam: other Other Details: Incision is clean, dry, and intact no CVA tenderness Extremity normal to inspection General Extremity: edema bilateral (trace ) Assessment & Plan (1) Status post section: (2) Breech presentation: COMMENT: unicornuate uterus, primary csection scheduled for 03/12 @ 7:15 with SM, will cancel if spontaneously converts, (3) Abnormal glucose level: COMMENT: Nl 3 hr GTT (4) Consumes gluten free diet: (5) Unicornuate uterus: (6) In vitro fertilization: COMMENT: 5 day embryo transfer on 07/03/23. echo 22-24 wk. growth US at 36 weeks, weekly nsts at 36 delivery 39. (7) Supervision of high-risk : QUALIFIERS: Trimester: second trimester Qualified Code(s): O09.92 - Supervision of high risk , unspecified, second trimester COMMENT: PRR , DENISE 03/18/24, boy Mamadou Shaun (8) : QUALIFIERS: Weeks of gestation: 37 weeks Qualified Code(s): Z 3A.37 - 37 weeks gestation of COMMENT: GBS neg, nl anatomy, already had genetic & Carrier testing with infertility doctors; AFP done: (9) Depression: QUALIFIERS: Depression Type: unspecified Qualified Code(s): F32.A - Depression, unspecified (10) Bipolar 2 disorder: COMMENT: on lamictal. given no nipple discharge and regular menses, prolactin not obtained. low likelihood. (11) Generalized anxiety disorder: COMMENT: stable (12) IBS (irritable bowel syndrome): QUALIFIERS: Irritable bowel syndrome type: with constipation Q ualified Code(s): K58.1 - Irritable bowel syndrome with constipation PLAN: Plan s/p LTCS PPD #1 1. routine post care 2. breast feeding- support given 3. rh positive 4. rubella immune 5. patient would like to be discharged to home when baby is cleared later tonight. If this happens will give nursing a verbal order for discharge.
[2024-03-05] MEDS: Famotidine 20 MG Tablet PO (09:38)
[2024-03-05] MEDS: FLUCONAZOLE 150 MG TABLET PO (09:38)
[2024-03-05] MEDS: Senna/Docusate Sodium 1 Tablet PO (09:38)
--- NOTE | 2024-03-05 14:56 | CASEMGMT ---
Social Work Assessment Labor and Delivery Unit Patient Address:[address] [place] [address] Phone number: [phone] Date of Referral: 03/05/24 Time of Referral:? 2151 Referred By: Dr. Leonardo Date of Intervention: ??03/05/24 Time of Intervention:? 1320 Reason for Referral:? mental health Sw completed chart review and acknowledges social work consult due to maternal mental health history. Sw presented to bedside and introduced self to mother of baby (ROCAEL- Kristen) and father of baby (FOLorna- Shaun). Sw explained reason for sw involvement and completed psychosocial assessment. History obtained from: medical records, MOB and FOB Household composition: Currently residing in the family home is MOB and DARREN. baby to be added to residence when ready for discharge. Parents report they also have a dog who lives with them. They are excited for her to meet new baby. Parents deny any issues or concerns with current housing. Patient's parent/guardian status: MOB and DARREN state that they were introduced to each other by a family member. No concerns reported of domestic violence or intimate partner violence. [place] baby is first baby for both parents. ? ? Medical History: ?ROCAEL is 23 year old female who is 1, para 0- now 1 following labor and delivery of . ROCAEL received routine care during with [facility]. ROCAEL went into labor and presented to hospital for on 03/04/24 due to baby being breech. ROCAEL delivered baby ay 38 weeks gestation. Baby boy, named Mamadou was born weighing 7lb 2oz with apgars of 8 and 9 at one and five minutes of life, respectfully. ROCAEL states that feeding is going well and baby will be followed by Dr. Farrell for pediatrics. Educational Status:? Both parents graduated from high school. MOB obtained an associates degree. DARREN states that he attended some college and has a tech certificate but no college degree. Parents deny any concerns with education denying struggles with reading, learning or comprehension. Financial Status: Both parents are gainfully employed outside of the home. FOB works at [employer]. 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 Infant Supplies: Parents state that they have obtained all necessary baby supplies, including: car seat, safe sleep space, clothes, diapers and wipes. Childcare/Caregiver(s):? ROCAEL will be the primary caregiver to baby along with FOLorna when he is not working. Parents state that when they are both working they have family members that will provide childcare for them. Transportation:?? Both parents have their drivers license and reliable means of transportation. No barriers. Programs/Agencies Involved: ??Parents deny linkage to community resources as they are over income for financial assistance. ? Children Services/Legal Issues:??? No history of children services involvement. No issues or concerns warranting referral to be made at this time. Behavioral Health Issues: ??Mental Health History:??FOLorna denies mental health history. MOB states that she has been diagnosed with BiPolar type II. ?MOB states that she is connected with a psychiatrist and is prescribed Lamictal to help her manage her mental health symptoms. MOB states that along with her bipolar she does struggle with anxiety from time to time and being extra emotional. MOB states that when she starts to feel anxious to get upset about something she feels comfortable talking to FOB who is able to help and support her. Substance Use History: Parents deny substance use prior to and during . ?? Family History:??Parents deny family history of substance use or addiction issues, and significant mental health diagnoses. ??? Drug Screens: No drug screens observed in chart review. Family/Social Stressors:? Parents deny any issues, concerns or stressors at this time. Support Systems: ROCAEL identifies that DARREN and her family are her biggest supports. Depression/Shaken Baby/Safe Sleeping: Vivienne educated parents on signs and symptoms of baby blues and mood and anxiety disorders to be mindful of during this period. ROCAEL states that her mental health was managed during her and her bipolar symptoms were more mild than at baseline. MOB states that at baseline she feels emotional and will cry to express herself. FOB states that if mob were to struggle during this period he would be able to recognize that and would know how to help and support her. MOB states that she feels comfortable discussing her mental health struggles and knows that she has several people who she can reach out to including her psychiatrist Kianna Walsh at [facility]. MOB reports to having an appointment with her the second week of March. Vivienne educated parents on shaken baby prevention and importance of ABCs of sleep. Parents express understanding. ASSESSMENT:? MOB and baby admitted following labor and delivery. MOB and FOB both present and engaging throughout completion of psychosocial assessment. MOB with mental health history. She is prescribed psychopharmacological medications to help her manage her mental health symptoms. MOB also connected to mental health services and supports through [facility]. MOB states that she is not familiar with what to lookout for during this period, but she was receptive to learn red flags regarding this period. FOB also eager to learn and states to be a strong support person for MOB. Parents have obtained all necessary baby items and have natural support in place. MOB states that she has felt really good regarding her mental health throughout , and feels calm and at peace currently. PLAN:?? No other services requested or indicated. MOB and baby to be discharged when medically ready. Parents were provided literature regarding: signs and symptoms of baby blues and mood and anxiety disorders, Help Me Grow, shaken baby prevention, ABCs of safe sleep and a list of county resources that are available for them should any needs present themselves. Simeon Maynard, RV MECHANIC, SIGNAL WIRER
[2024-03-05] MEDS: lamoTRIgine 150 MG Tablet PO (15:02)
== END 2024-03-05 18:10 | disposition home or self-care (01) | DRG 787 ==
LOC: WPOUT 14:22 → WP 14:26
PROVIDERS: Admitting Provider Obstetrics & Gynecology; PCP Internal Medicine; Referring Provider Obstetrics & Gynecology; Visit Provider Obstetrics & Gynecology
DX: O42.92 Full-term premature rupture of membranes, unspecified as to length of time between rupture and onset of labor (principal); F31.81 Bipolar II disorder; K58.1 Irritable bowel syndrome with constipation; J30.2 Other seasonal allergic rhinitis; O32.8XX0 Maternal care for other malpresentation of fetus, not applicable or unspecified; Z3A.38 38 weeks gestation of pregnancy; Z37.0 Single live birth; O99.344 Other mental disorders complicating childbirth; O34.03 Maternal care for unspecified congenital malformation of uterus, third trimester; O99.52 Diseases of the respiratory system complicating childbirth; Q51.4 Unicornate uterus; O99.892 Other specified diseases and conditions complicating childbirth; O99.814 Abnormal glucose complicating childbirth; F41.1 Generalized anxiety disorder; O99.62 Diseases of the digestive system complicating childbirth; Z88.1 Allergy status to other antibiotic agents; Z88.2 Allergy status to sulfonamides; Z79.899 Other long term (current) drug therapy
CPT/HCPCS: 59025; 59050; 82565; 82570; 84112; 84156; 84450; 84460; 84550; 85025; 86780; 86850; 86900; 86901; 99221; J7120; A4216; G0378; J2405

== ENCOUNTER → 2025-03-03 | Outpatient (CLI) | payer BC, SELFPAY ==
--- OUTSIDE RECORDS SUMMARY | 2025-03-03 19:15 | XMS RPT_ITS | CCD ---
Author Organization [facility] Care Team Providers Care Director Of Community Life Name Role Phone MARK HARVEY Unavailable Unavailable PHYSICIAN, NONE Unavailable Unavailable THORPE, MOHIT (CLINICAL TECHNICIAN) Referring Unavailable INDIRA, FLASH (DOCK CLERK) Attending Unavailable ANNALISECATALINA (DOCK CLERK) Attending Unavailable INDIRA, FLASH (DOCK CLERK) Attending Unavailable INDIRA, FLASH (DOCK CLERK) Referring Unavailable THORPE, MOHIT (CLINICAL TECHNICIAN) Attending Unavailable INDIRA, FLASH (DOCK CLERK) Referring Unavailable THORPE, MOHIT (CLINICAL TECHNICIAN) Referring Unavailable Dr. Marbella Park Primary Care Provider [phone]) Dr. Marbella Park Referring Provider [phone] Arleen AWAN, EMPERATRIZ-Chava Bautista Attending Provider [phone] ) Dr. Marbella Park Primary Care Provider 1(33 0) Dr. Marbella Park Referring Provider [phone] OWEN Adhikari Attending Provider Dr. Marbella Park Primary Care Provider 1(33 0) Dr. Marbella Park Referring Provider [phone] OWEN Adhikari Attending Provider [phone] Dr. Marbella Park Primary Care Provider 1(33 0) Dr. Marbella Park Referring Provider [phone] OWEN Adhikari Attending Provider YULIYA Calvin Attending Provider [phone] Dr. Marbella Park Primary Care Provider [phone] Dr. Marbella Park Referring Provider [phone] Dr. Marbella Park Primary Care Provider 1(33 0) Dr. Marbella Park Referring Provider [phone])2 YULIYA Calvin Attending Provider [phone] Dr. Crystal Leonardo Attending Provider 1([phone]) Dr. Crystal Leonardo Other Provider Dr. Ca Cesar Other Provider HEAVEN ADDISON Attending Unavailable HEAVEN ADDISON Primary Care Unavailable HEAVEN ADDISON Admitting Unavailable Dr. Marbella Park Primary Care Provider 1(33 0) Xavier, Dr. Tyson Referring Provider [phone])2 Dr. Crystal Leonardo Attending Provider 1([phone]) NO PRIMARY CARE, MD Primary Care Unavailable BARRINGTON HATHAWAY Attending Unavailable REFERRED, SELF Referring Unavailable CHIP BACON Referring Unavailable SHANDA SANTIAGO Attending Unavailable NO PRIMARY CARE, Primary Care Unavailable NO PRIMARY CARE, Primary Care Unavailable CA CESAR Attending Unavailable CRYSTAL IYER Referring Unavailab le NO PRIMARY CARE, Primary Care Unavailable CA CESAR Referring Unavailable GUADALUPE CANCHOLA Attending Unavailable GUADALUPE CANCHOLA Attending Unavailable NO PRIMARY CARE, Primary Care Unavailable CA CESAR Referring Unavailable Oleghe, Efewongbe Referring Unavailable Sebastián CLINICAL TECHNICIANVira Attending Unavailable Oleghe, Efewongbe Primary Care Unavailable Crystal Leonardo Admitting Unavailabl e Ruperte VelCrystal olivas Referring Unavailabl e Crystal Leonardo Attending Unavailabl e Vande VeldeCrystal Consulting Unavailabl e Oleghe, Efewongbe Primary Care Unavailable Paty Major Attending Unavailable Amrit OLS, Salvador Chi Referring Unavailable Amrit OLS, Salvador Chi Primary Care Unavailable Oleghe, Efewongbe Primary Care Unavailable Di Dixon Attending Unavailable Oleghe, Efewongbe Referring Unavailable Oleghe, Efewongbe Primary Care Unavailable Mackenzie Naranjo Attending Unavailable Mackenzie Naranjo Admitting Unavailable Vande Velde, Crystal Admitting Unavailabl e Vande Velde, Crystal Referring Unavailabl e Vande Velde, Crystal Attending Unavailabl e Oleghe, Efewongbe Primary Care Unavailable Amrit OLS, Salvador Chi Attending Unavailable Amrit OLS, Salvador Chi Primary Care Unavailable Amrit OLS, Salvador Chi Attending Unavailable Amrit OLS, Salvador Chi Primary Care Unavailable Amrit OLS, Salvador Chi Referring Unavailable Mackenzie Naranjo Attending Unavailable Amrit OLS, Salvadro Chi Primary Care Unavailable Oleghe, Efewongbe Referring Unavailable Arleen CLINICAL TECHNICIANChip Attending Unavailable Oleghe, Efewongbe Primary Care Unavailable Oleghe, Efewongbe Referring Unavailable Vira Lowery NP Attending Unavailable Oleghe, Efewongbe Primary Care Unavailable Oleghe, Efewongbe Referring Unavailable Arleen CLINICAL TECHNICIANChip Attending Unavailable Oleghe, Efewongbe Primary Care Unavailable Allergies Allergy Classification Reported Allergen(s) Allergy Type Date of Onset Reaction(s) Facility (18 sources) Doxycycline; Translations: [DOXYCYCLINE] Drug Allergy 01-08-20 16 [facility] Repository (17 sources) Gluten; Translations: [GLUTEN] Propensity to adverse reactions to drug (disorder) 05-11-19 19 Nausea/Vom/Val rrhea [facility] Repository (3 sources) Sulfamethoxazole / Trimethoprim; Translations: [SULFAMETHOXAZOLE-T RIMETHOPRIM] Drug Allergy 01-08-20 16 [facility] Repository (14 sources) Sulfamethoxazole Drug Allergy 09-05-19 22 [facility] (14 sources) Trimethoprim Drug Allergy 09-05-19 22 [facility] (1 source) GLUTEN MEAL; Translations: [GLUTEN MEAL] Propensity to adverse reactions to drug (disorder) 09-03-19 24 [facility] Repository (1 source) Sulfamethoxazole Drug Allergy 02-18-20 [facility] Repository (1 source) Trimethoprim Drug Allergy 02-18-20 25 [facility] Repository Medications Current Medications Medication Drug Class(es) Dates Sig (Normalized) Sig (Original) estradiol 2 mg oral tablet (1 source) Estrogen Start: 08-05-2023 take 2 mg by mouth twice daily Estradiol Active 2 MG PO TWICE A DAY August 05, 2023 12:00am folic acid 1 mg oral tablet (1 source) Start: 08-05-2023 take 4 mg by mouth once daily Folic Acid Active 4 MG PO DAILY August 05, 2023 12:00am Lactobacillus Combination No.9 (Adult 50 Plus Probiotic) 4 billion cell capsule (14 sources) Start: 02-20-2021 Lactobacillus Combination No.9 (Adult 50 Plus Probiotic) 4 billion cell capsule Active PO February 19, 2021 11:00pm Start: 02-20-2021 Lactobacillus Combination No.9 (Adult 50 Plus Probiotic) 4 billion cell capsule Active PO February 20, 2021 12:00am lamoTRIgine 200 mg oral tablet (20 sources) Mood Stabilizer, Anti-epileptic Agent Start: 08-05-2023 Lamotrigine (Lamictal) 200 mg tablet Active 150 MG PO DAILY August 05, 2023 8:22am Start: 02-20-2021 End: 08-05-2023 take 1 tablet by mouth once daily Lamotrigine (Lamictal) 200 mg tablet Discontinued 200 MG PO DAILY February 20, 2021 12:00am August 05, 2023 8:26am Start: 03-08-2020 End: 02-20-2021 take 2 tablets by mouth once daily Lamotrigine (Lamictal) 100 mg tablet Discontinued 200 MG PO DAILY March 08, 2020 10:50am February 20, 2021 8:22am Start: 12-22-2018 End: 03-08-2020 take 1 tablet by mouth once daily Lamotrigine (Lamictal) 100 mg tablet Discontinued 100 MG PO DAILY December 22, 2018 12:00am March 08, 2020 10:51am Multivit 83-Oyyw-Tlwqzt 1-Dha (Pnv-Dha) 27 mg iron-1 mg -300 mg capsule (1 source) Start: 08-05-2023 Multivit 52-Iivp-Azmzif 1-Dha (Pnv-Dha) 27 mg iron-1 mg -300 mg capsule Active CAP PO August 05, 2023 12:00am progesterone 50 mg/ml injectable solution (1 source) Progesterone Start: 08-05-2023 inject 75 mg by intramuscular injection once daily Progesterone Active 75 MG IM DAILY August 05, 2023 12:00am Completed/Discontinued Medications Medication Drug Class(es) Dates Sig (Normalized) Sig (Original) amoxicillin 500 mg oral capsule (20 sources) Penicillin-class Antibacterial Start: 03-08-2020 End: 12-14-2020 take 500 mg by mouth once daily Amoxicillin Discontinued 500 MG PO DAILY March 08, 2020 1:00am December 14, 2020 3:47pm Start: 01-06-2016 End: 12-22-2018 take 875 mg by mouth twice daily Amoxicillin Discontinued 875 MG PO TWICE A DAY January 06, 2016 12:00am December 22, 2018 3:49pm cholecalciferol 0.05 mg oral capsule (14 sources) Vitamin D Start: 09-04-2021 End: 07-03-2022 take 50 ug by mouth once daily Cholecalciferol (Vitamin D3) Discontinued 50 MCG PO DAILY September 04, 2021 12:00am July 03, 2022 2:06pm 24 hr desvenlafaxine succinate 25 mg extended release oral tablet (14 sources) Serotonin and Norepinephrine Reuptake Inhibitor Start: 06-29-2021 End: 09-04-2021 take 25 mg by mouth once daily Desvenlafaxine Succinate Discontinued 25 MG PO DAILY June 29, 2021 1:00am September 04, 2021 8:49am fluconazole 150 mg oral tablet (20 sources) Azole Antifungal Start: 03-13-2020 End: 10-31-2020 Fluconazole Discontinued 150 MG PO .COMPLEX 2 March 13, 2020 1:00am October 31, 2020 10:08am 150 mg PO take one po now and repeat in 3 days Start: 12-22-2018 End: 03-29-2019 Fluconazole Discontinued 150 MG PO Every 3 Days December 22, 2018 12:00am March 29, 2019 11:07am hydrOXYzine hydrochloride 10 mg oral tablet (20 sources) Antihistamine Start: 02-20-2021 End: 07-03-2022 take 10 mg by mouth twice daily Hydroxyzine Hcl Discontinued 10 MG PO TWICE A DAY February 20, 2021 8:21am July 03, 2022 2:06pm Start: 02-20-2021 End: 02-20-2021 take 10 mg by mouth three times daily Hydroxyzine Hcl Discontinued 10 MG PO THREE TIMES A DAY February 20, 2021 12:00am February 20, 2021 8:22am levonorgestrel 0.654688 mg/hr intrauterine system (14 sources) Progestin, Progestin-containing Intrauterine Device Start: 03-08-2020 End: 09-04-2021 Levonorgestrel (Mirena) 20 mcg/24 hours (5 yrs) 52 mg intrauterine device Discontinued 1 DEVICE INTRA-UTER ONCE March 08, 2020 1:00am September 04, 2021 8:49am as a single dose metroNIDAZOLE 500 mg oral tablet (14 sources) Nitroimidazole Antimicrobial Start: 12-22-2018 End: 12-29-2018 take 500 mg by mouth twice daily Metronidazole Discontinued 500 MG PO TWICE A DAY 14 December 22, 2018 12:00am December 29, 2018 12:07am nitrofurantoin, macrocrystals 25 mg / nitrofurantoin, monohydrate 75 mg oral capsule (14 sources) Nitrofuran Antibacterial Start: 01-15-2019 End: 01-22-2019 take 1 capsule by mouth every twelve hours at mealtime Nitrofurantoin Monohyd/M-Cryst Discontinued 1 CAP PO Q12H 14 January 15, 2019 12:00am January 22, 2019 12:09am administer with a meal/food; swallow whole; do not open, crush, dissolve , or chew predniSONE 10 mg oral tablet (13 sources) Start: 12-31-2021 End: 07-03-2022 take 4 tablets by mouth once daily, then take 3 tablets by mouth once daily, then take 2 tablets by mouth once daily, then take 1 tablet by mouth once daily Prednisone Discontinued 10 MG PO DAILY December 31, 2021 12:00am July 03, 2022 2:06pm 4 tablets daily for 3 days, then 3 tablets daily for 3 days, then 2 tablets daily for 3 days, then 1 tablet daily for 3 days sertraline 25 mg oral tablet (14 sources) Serotonin Reuptake Inhibitor Start: 03-08-2020 End: 12-14-2020 take 1 tablet by mouth once daily Sertraline (Zoloft) 25 mg tablet Discontinued 25 MG PO DAILY March 08, 2020 1:00am December 14, 2020 3:47pm spironolactone 100 mg oral tablet (14 sources) Aldosterone Antagonist Start: 06-29-2021 End: 07-03-2022 take 200 mg by mouth once daily Spironolactone Discontinued 200 MG PO DAILY June 29, 2021 1:00am July 03, 2022 2:07pm Problems Active Problems Problem Classification Problem Date Documented Da te Episodic/Chronic Abdominal pain (18 sources) Periumbilical pain; Translations: [Pain in pelvis] Onset: 05-26-2018 10-31-2020 Episodic Administrative/social admission (20 sources) Patient encounter status; Translations: [Encounter for pre-employment examination] Episodic Allergic reactions (15 sources) Irritant contact dermatitis due to plant; Translations: [Irritant contact dermatitis due to plants, except food] Episodic Anxiety disorders (16 sources) Generalized anxiety disorder; Translations: [Generalized anxiety disorder] Onset: 04-11-2024 06-29-2021 Chronic Genitourinary congenital anomalies (3 sources) Uterus unicornis; 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] Onset: 04-11-2024 08-05-2023 Chronic Genitourinary symptoms and ill-defined conditions (14 sources) Scalding pain on urination ; Translations: [Dysuria] 06-29-2021 Episodic Menstrual disorders (20 sources) Irregular periods; Translations: [Irregular menstruation, unspecified] 07-03-2022 Chronic Mood disorders (20 sources) Bipolar II disorder; Translations: [Bipolar II disorder] Onset: 04-11-2024 02-20-2021 Chronic Mood disorders (1 source) Mood disorders; Translations: [Depression, unspecified] Onset: 04-11-2024 Nausea and vomiting (1 source) Nausea; Translations: [Nausea] Onset: 05-26-2018 Episodic Other complications of (1 source) High risk ; Translations: [Supervision of high risk , unspecified, unspecified trimester] 08-05-2023 Episodic Other complications of (2 sources) Supervision of high risk , unspecified, unspecified trimester; Translations: [Supervision of unspecified high-risk ] Onset: 03-01-2025 08-08-2023 Episodic Other gastrointestinal disorders (14 sources) Irritable bowel syndrome; Translations: [Irritable bowel syndrome without diarrhea] 02-20-2021 Chronic Other gastrointestinal disorders (1 source) Irritable bowel syndrome without diarrhea; Translations: [Irritable bowel syndrome] 08-08-2023 Chronic Other gastrointestinal disorders (1 source) Irritable bowel syndrome with constipation; Translations: [Irritable bowel syndrome with constipation] Onset: 04-11-2024 Chronic Other gastrointestinal disorders (2 sources) Constipation, unspecified; Translations: [Constipation, unspecified] Onset: 05-20-2018 Episodic Other upper respiratory disease (14 sources) Seasonal allergy; Translations: [Other seasonal allergic rhinitis] 02-20-2021 Chronic Other upper respiratory disease (2 sources) Other seasonal allergic rhinitis; Translations: [Allergic rhinitis, cause unspecified] Onset: 03-16-2024 08-08-2023 Chronic Otitis media and related conditions (14 sources) Dysfunction of eustachian tube; Translations: [Other specified disorders of Eustachian tube, left ear] 07-20-2021 Episodic Residual codes; unclassified (1 source) Gluten free diet; Translations: [Other specified health status] 08-05-2023 Episodic Unclassified (14 sources) Infertile; Translations: [Infertility] 11-27-2022 Past or Other Problems Problem Classification Problem Date Documented Da te Episodic/Chronic Contraceptive and procreative management (14 sources) Encounter for removal of intrauterine contraceptive device; Translations: [Encounter for removal of intrauterine contraceptive device] Onset: 04-11-2024 Episodic Diabetes mellitus without complication (1 source) Other abnormal glucose; Translations: [Other abnormal glucose] Onset: 04-11-2024 Episodic Malposition; malpresentation (1 source) Maternal care for breech presentation, not applicable or unspecified; Translations: [Maternal care for breech presentation, not applicable or unspecified] Onset: 04-11-2024 Episodic Other complications of (1 source) Supervision of high risk , unspecified, second trimester; Translations: [Supervision of high risk , unspecified, second trimester] Onset: 04-11-2024 Episodic Other gastrointestinal disorders (1 source) Other constipation; Translations: [Other constipation] Onset: 05-11-2018 Episodic Other and delivery including normal (4 sources) ; Translations: [Encounter for supervision of normal , unspecified, unspecified trimester] Onset: 04-11-2024 08-05-2023 Episodic Residual codes; unclassified (2 sources) Other specified health status; Translations: [Other specified conditions influencing health status] Onset: 04-11-2024 08-08-2023 Episodic Residual codes; unclassified (1 source) 37 weeks gestation of ; Translations: [37 weeks gestation of ] Onset: 04-11-2024 Episodic Residual codes; unclassified (1 source) History of uterine scar from previous surgery; Translations: [History of uterine scar from previous surgery] Onset: 03-16-2024 Episodic Results Test Name Value Interpretation Reference Range Facility COVID 19 AG RAPID (CORDELL Beckwith)on 06-08-2024 SARS-CoV-2 (COVID-19) RNA EDMOND+probe Ql (Unsp spec) *Negative results from patients with symptom onset beyond five days should be treated as presumptive and confirmed by a molecular assay if clinically necessary. Negative results should not be used as the sole basis for treatment or for patient management. SARS-CoV-2 Ag Resp Ql IA.rapid *Positive results do not differentiate between SARS-CoV and SARS-CoV-2. If differentiation of the specific SARS virus is desired an additional sample and an additional order is required. SARS-CoV-2 Ag Resp Ql IA.rapid * This test has not been FDA cleared or approved; the test has been authorized by FDA under an Emergency Use Authorization (EAU) for use by laboratories certified under CLIA that meet the requirements to perform moderate, high, or waived complexity tests. SARS-CoV-2 Ag Resp Ql IA.rapid Normal Reference Range: Negative SARS-CoV-2 (COVID 19) Negative RAPID METHOD [facility] COVID19 Ag Card Normal [facility] Comment on above: Performed By: #### M 100.505 #### [facility] [address] [place], [place], [id number] /Rebecca 04-27-2024 /[facility] [address] [place], [place] [address] OFFICE VISIT Date of Service: 03/31/24 MR#: [id number] Acct: [id number] Name: HELIO RUSSELL Rep #: [id number] : 2000 Provider: Vira Lowery NP Age/Sex: 23/F [place] [facility] [place]: Signed Intake Vital Signs 03/17/24 15:45 04/27/24 12:13 Height 5 ft 6 in 5 ft 6 in Intake Visit Reasons: assessment Chief Complaint: assessment, milk supply follow up Allergies gluten Allergy (Intermediate, Verified 04/19/24 11:42) Nausea/Vom/Diarrhea doxycycline Allergy (Unknown, Verified 04/19/24 11:42) Hives sulfamethoxazole (From Bactrim) Allergy (Unknown, Verified 04/19/24 11:42) Hives trimethoprim (From Bactrim) Allergy (Unknown, Verified 04/19/24 11:42) Hives : Yes PFSH PFSH Medical History Infertility Psychiatric disorder Irregular menses Pre-conception counseling Generalized anxiety disorder Burning with urination IBS (irritable bowel syndrome) Seasonal allergies Surgical History [place] teeth extracted S/P tonsillectomy Family History Father Hypertension Myocardial infarction, Onset Age: 55 A-fib Grandmother CHF (congestive heart failure) Diabetes MATERNAL Grandfather Prostate cancer Colon cancer Other Alcoholism Anxiety and depression Arthritis Social History adopted: No household members: spouse number of children: 1 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 pets and animals: Yes pets and animals: dog(s) history of recent travel: No sexually active: Yes Smoking Status: Never smoker alcohol intake: current alcohol intake frequency: a few times a month details: not while substance use type: does not use diet: gluten free well-balanced diet: about half the time caffeine: Yes Type: carbonated beverages Number of servings: 1 eating out: 1-3 times/week during the past year weight has: remained stable what type of physical activity do you participate in: walking frequency: 3-4 times per week duration: 45-60 minutes/day jak/hinduism: Sikhism seatbelt use: always do you feel safe at home: Yes additional social history: - Shaun Russell History 1 Elective abortions Hx Para 1 Spontaneous abortions Hx # Term Pregnancies 1 Ectopic pregnancies Hx # Pregnancies Multiple births # of living children 1 Past Pregnancies Del. Date Name GA/Weeks Outcome Route Bth Weight Infant Gen Labor Lgth Anesthesia Del Locatn Provider FOB 03/04/24 Mamadou 38 live - full term 7lbs 2oz Male spinal [facility] Crystal Cadet Delivery Date: 03/04/24 Last Updated by: Cheryl Sears cs for breech HPI HPI HPI: MARCELLUS RUSSELL, is a 23 F who presents to the office today for assessment, milk supply follow up. History provided by the patient. ROS ROS Const Constitutional: Denies fever(s) or lethargy : Denies nipple discharge Skin Skin/Breast: Denies breast pain, breast skin changes or nipple discharge Details: 4-5x per day, 5-20 minutes per side, pumping about 4-5 x per day as well, supply has increased to 12-32 ml per pumping session (using hand pump, cordell and spectra), in office today for pre/post feed weight for baby and feeding/supply assessment Exam Assessment Baby Feeding History Is your baby latching onto the breast: Yes Number of Breast Feedings in 24 hours: 4-5 Minutes per breast: First Breast: 5-20 Minutes per breast: Second Breast: 5-20 Supplements Supplement Type:: Formula and Expressed milk Frequency: q2-3 hours Amount: 2-3 oz Breast Pumping Type of Breast Pump: Hand Pump, Cordell, Spectra Frequency: total 4-5x per day Amount: 12-32 ml Reason for supplements or pumping:: To help increase milk supply Goals Breast Feeding Goals: To provide as much breastmilk as possible Exam Const General: comfortable and no acute distress Orientation: alert and oriented x3 Chest Breast inspection: normal inspection of the breasts (slight spacing noted ) Breast palpation: normal palpation of the breasts Resp Effort Inspection: normal respiratory effort Skin General: no rashes or lesions noted Psych Appearance: grossly normal Mental Status: mental status grossly normal Affect: normal affect Assessment and Plan Assessment and Plan (1) Hypogalactia: Plan: Supply has had slight increase (12-32 ml) but overall lower supply with babys age and intake (more content not included)... Normal [facility] Office Visit Reporton 04-19-2024 [facility] Office Visit Report [facility] [address], [address] [place] [address] OFFICE VISIT Date of Service: 04/19/24 MR#: [id number] Acct: [id number] Name: HELIO RUSSELL Rep #: [id number] : 2000 Provider: ALBIN solano Age/Sex: 23/F Location: [facility] [email or web address] Status: Signed Intake Vital Signs 02/09/24 13:21 03/04/24 13:49 03/17/24 15:45 04/19/24 11:41 Height 5 ft 6 in 5 ft 6 in 5 ft 6 in 5 ft 6 in Weight: 203 lb 6 oz BMI 32.8 BP 114/72 Intake Visit Reasons: visit (obstetrics) Chief Complaint: 6 Week PP Clinical Rn Liaison Required: No Is patient in pain?: No Allergies gluten Allergy (Intermediate, Verified 04/19/24 11:42) Nausea/Vom/Diarrhea doxycycline Allergy (Unknown, Verified 04/19/24 11:42) Hives sulfamethoxazole (From Bactrim) Allergy (Unknown, Verified 04/19/24 11:42) Hives trimethoprim (From Bactrim) Allergy (Unknown, Verified 04/19/24 11:42) Hives Medications ???Medication ???Instructions ???Recorded ???Confirmed ???Type lactobacillus combination no.9 4 4,000 mmu cells PO DAILY 02/20/21 04/19/24 History billion cell capsule (Adult 50 Gastro/vaginal health Plus Probiotic) lamotrigine 200 mg tablet 150 mg PO DAILY 08/05/23 04/19/24 History (Lamictal) : Yes [facility] Medical History Infertility Psychiatric disorder Irregular menses Pre-conception counseling Generalized anxiety disorder Burning with urination IBS (irritable bowel syndrome) Seasonal allergies Surgical History [place] teeth extracted S/P tonsillectomy Family History Father Hypertension Myocardial infarction, Onset Age: 55 A-fib Grandmother CHF (congestive heart failure) Diabetes MATERNAL Grandfather Prostate cancer Colon cancer Other Alcoholism Anxiety and depression Arthritis Social History adopted: No household members: spouse number of children: 1 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 pets and animals: Yes pets and animals: dog(s) history of recent travel: No sexually active: Yes Smoking Status: Never smoker alcohol intake: current alcohol intake frequency: a few times a month details: not while substance use type: does not use diet: gluten free well-balanced diet: about half the time caffeine: Yes Type: carbonated beverages Number of servings: 1 eating out: 1-3 times/week during the past year weight has: remained stable what type of physical activity do you participate in: walking frequency: 3-4 times per week duration: 45-60 minutes/day jak/hinduism: Sikhism seatbelt use: always do you feel safe at home: Yes additional social history: - Shaun Russell History 1 Elective abortions Hx Para 1 Spontaneous abortions Hx # Term Pregnancies 1 Ectopic pregnancies Hx # Pregnancies Multiple births # of living children 1 Past Pregnancies Del. Date Name GA/Weeks Outcome Route Bth Weight Infant Gen Labor Lgth Anesthesia Del Locatn Provider FOB 03/04/24 Mamadou 38 live - full term 7lbs 2oz Male spinal [facility] Crystal Leonardo Shaun Delivery Date: 03/04/24 Last Updated by: Cheryl Sears cs for breech Depression Screen PHQ-2/9 PHQ-2 Over the last 2 weeks, how often have you been bothered by any of the following problems? 1. Little interest or pleasure in doing things: not at all 2. Feeling down, depressed, or hopeless: several days Total score: 1 Post HPI Routine Follow-Up: Details: MARCELLUS RUSSELL is a 23 year old who presents for her post visit. Has had some days of feeling depressed but much less over last couple of weeks. Declines need for medication Feeding: Breast Menses resumed: No [place] since delivery: Yes Emotional Support: Yes Last Pap:: 2023 Control Method: condom ROS Card Denies chest pain and Denies dyspnea Resp Denies dyspnea GI Denies bloating and Denies change in bowel habits Denies difficulty voiding Skin/Breast Denies breast mass, Denies breast pain and Denies breast skin changes Exam Const General: cooperative Nutritional Appearance: well nourished GI Palpation: soft (c section scar well healed), nontender and other (gravid) Coding Level of Care Code No Charge Diagnoses Routine Follow-Up Z39.2 Assessment and Plan Assessment and Plan (1) Routine Follow-Up: Plan Cervical cancer screenin Contraceptive plans: condoms Complications: c section, breech. IVF Foll (more content not included)... Normal [facility] Office Visit Reporton 03-17-2024 [facility] Office Visit Report [facility] [address], [address] [place] [address] OFFICE VISIT Date of Service: 03/17/24 MR#: [id number] Acct: [id number] Name: HELIO RUSSELL Rep #: [id number] : 2000 Provider: ALBIN solano Age/Sex: 23/F [place] [facility] [place]: Signed Intake Vital Signs 02/09/24 13:21 03/04/24 13:49 03/10/24 12:55 03/17/24 15:45 03/17/24 15:45 Height 5 ft 6 in 5 ft 6 in 5 ft 6 in 5 ft 6 in 5 ft 6 in Intake Visit Reasons: 2 wk primary section Clinical Rn Liaison Required: No Is patient in pain?: No Allergies gluten Allergy (Intermediate, Verified 03/17/24 15:43) Nausea/Vom/Diarrhea doxycycline Allergy (Unknown, Verified 03/17/24 15:43) Hives sulfamethoxazole (From Bactrim) Allergy (Unknown, Verified 03/17/24 15:43) Hives trimethoprim (From Bactrim) Allergy (Unknown, Verified 03/17/24 15:43) Hives Medications ???Medication ???Instructions ???Recorded ???Confirmed ???Type lactobacillus combination no.9 4 4,000 mmu cells PO DAILY 02/20/21 03/17/24 History billion cell capsule (Adult 50 Gastro/vaginal health Plus Probiotic) lamotrigine 200 mg tablet 150 mg PO DAILY 08/05/23 03/17/24 History (Lamictal) PNV 153-FA 400 mcg-om3 35 mg-dha 2 tab PO DAILY 03/04/24 03/17/24 History 25 mg-epa 5 mg-fish oil chew tablet ( Gummies) : Yes PFSH Medical History Infertility Psychiatric disorder Irregular menses Pre-conception counseling Generalized anxiety disorder Burning with urination IBS (irritable bowel syndrome) Seasonal allergies Surgical History [place] teeth extracted S/P tonsillectomy Family History Father Hypertension Myocardial infarction, Onset Age: 55 A-fib Grandmother CHF (congestive heart failure) Diabetes MATERNAL Grandfather Prostate cancer Colon cancer Other Alcoholism Anxiety and depression Arthritis Social History (Updated 03/17/24 @ 15:44 by Valeria Fisher) adopted: No household members: spouse number of children: 1 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 pets and animals: Yes pets and animals: dog(s) history of recent travel: No sexually active: Yes Smoking Status: Never smoker alcohol intake: current alcohol intake frequency: a few times a month details: not while substance use type: does not use diet: gluten free well-balanced diet: about half the time caffeine: Yes Type: carbonated beverages Number of servings: 1 eating out: 1-3 times/week during the past year weight has: remained stable what type of physical activity do you participate in: walking frequency: 3-4 times per week duration: 45-60 minutes/day jak/hinduism: Sikhism seatbelt use: always do you feel safe at home: Yes additional social history: - Shaun Russell History 1 Elective abortions Hx Para 1 Spontaneous abortions Hx # Term Pregnancies 1 Ectopic pregnancies Hx # Pregnancies Multiple births # of living children 1 Past Pregnancies Del. Date Name GA/Weeks Outcome Route Bth Weight Infant Gen Labor Lgth Anesthesia Del Locatn Provider FOB 03/04/24 Mamadou 38 live - full term 7lbs 2oz Male spinal [facility] Crystal Emerymarjorie Elsie Shaun Delivery Date: 03/04/24 Last Updated by: Cheryl Sears cs for breech Depression Screen PHQ-2/9 PHQ-2 Over the last 2 weeks, how often have you been bothered by any of the following problems? 1. Little interest or pleasure in doing things: not at all 2. Feeling down, depressed, or hopeless: several days Total score: 1 Post HPI 2 wk primary section: Details: MARCELLUS RUSSELL is a 23 year old who presents for 2 week postop c section Dr Leonardo/ned. States doing better each day. Struggling with low breast milk production and this is disappointing to her. Is working with . Denies that she needs any intervention for anxiety currently. Feeding: Both Exam Const General: cooperative and no acute distress Orientation: oriented x3 GI Inspection: incision (well healed, nonerythematous) Palpation: soft and nontender Coding Level of Care Code No Charge Diagnoses Status post section Z98.891 Postop check Z09 Assessment and Plan Assessment and Plan (1) Status post section: Status: Acute (2) Postop check: Plan Routine pp care Call if increase in anxiety They are moving also this weekend RTO 4 weeks 03/21/24 1139 Date Crystal Leonardo DO 03/17/24 1558 Cosigner (more content not included)... Normal [facility] [address] [facility] [place] [address] OFFICE VISIT Date of Service: 03/10/24 MR#: [id number] Acct: [id number] Name: HELIO RUSSELL Rep #: [id number] : 2000 Provider: Vira Lowery NP Age/Sex: 23/F [place] [facility] [place]: S[place] Intake Vital Signs 03/04/24 13:49 03/10/24 12:55 Height 5 ft 6 in 5 ft 6 in Intake Visit Reasons: Visit Chief Complaint: assessment, milk supply concerns Accompanied by: Allergies gluten Allergy (Intermediate, Verified 03/04/24 13:42) Nausea/Vom/Diarrhea doxycycline Allergy (Unknown, Verified 03/04/24 13:42) Hives sulfamethoxazole (From Bactrim) Allergy (Unknown, Verified 03/04/24 13:42) Hives trimethoprim (From Bactrim) Allergy (Unknown, Verified 03/04/24 13:42) Hives : Yes PFSH PFSH Medical History (Updated 03/09/24 @ 00:02 by Background Daemon) Infertility Psychiatric disorder Irregular menses Pre-conception counseling Generalized anxiety disorder Burning with urination IBS (irritable bowel syndrome) Seasonal allergies Surgical History (Updated 03/09/24 @ 00:02 by Background Daemon) [place] teeth extracted S/P tonsillectomy Family History Father Hypertension Myocardial infarction, Onset Age: 55 A-fib Grandmother CHF (congestive heart failure) Diabetes MATERNAL Grandfather Prostate cancer Colon cancer Other Alcoholism Anxiety and depression Arthritis Social History adopted: No household members: spouse 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 pets and animals: Yes pets and animals: dog(s) history of recent travel: No sexually active: Yes Smoking Status: Never smoker alcohol intake: current alcohol intake frequency: a few times a month details: not while substance use type: does not use diet: gluten free well-balanced diet: about half the time caffeine: Yes Type: carbonated beverages Number of servings: 1 eating out: 1-3 times/week during the past year weight has: remained stable what type of physical activity do you participate in: walking frequency: 3-4 times per week duration: 45-60 minutes/day jak/hinduism: Sikhism seatbelt use: always do you feel safe at home: Yes additional social history: - Shaun Russell History 1 Elective abortions Hx Para 0 Spontaneous abortions Hx # Term Pregnancies Ectopic pregnancies Hx # Pregnancies Multiple births # of living children HPI HPI HPI: MARCELLUS RUSSELL, is a 23 F who presents to the office today for assessment, milk supply concerns. History provided by the patient. ROS ROS Const Constitutional: Denies fever(s) or lethargy : Denies nipple discharge Skin Skin/Breast: Denies breast pain, breast skin changes or nipple discharge Details: q2-3 hours, 10-15 minutes per side, supplementing 1-1.5 oz of formula some EBM after feeds, patient started pumping and is getting 2-12 ml after feeds, hx of IVF, had some increased breast changes in first trimester, no history of thyroid disorders and has not met all criteria for PCOS per patient Exam Maternal Assessment Breast Assessment Bilateral Breasts: Soft Nipple Assessment Bilateral Nipples: Everted Areolar Tissue Areolar Tissue: Pliable Assessment Baby Feeding History Is your baby latching onto the breast: Yes Number of Breast Feedings in 24 hours: 8-12 Minutes per breast: First Breast: 10-15 Minutes per breast: Second Breast: 10-15 Supplements Supplement Type:: Formula and Expressed milk Frequency: q2-3 hours after nursing sessions Amount: 1-1.5 oz Breast Pumping Type of Breast Pump: Spectra Frequency: q2-3 hours Amount: 2-12 ml Goals Breast Feeding Goals: Exclusive Exam Const General: comfortable and no acute distress Orientation: alert and oriented x3 Chest Breast inspection: normal inspection of the breasts (slight spacing noted ) Breast palpation: normal palpation of the breasts Resp Effort Inspection: normal respiratory effort Skin General: no rashes or lesions noted Psych Appearance: grossly normal Mental Status: mental status grossly normal Affect: normal affect Assessment and Plan Assessment and Plan (1) Hypogalactia: Plan: Concerns with supply, baby latching but per patient and not always active at breast. Pumped in office today and got about 5 ml. Feeding/pumping plan provided. Educated on flange size and all pump settings. Will call in to over the next 3-4 days to see if having improvement in supply or (more content not included)... Normal [facility] CBC-Complete Blood Cnt No Di ffon 03-05-2024 HCT Normal 37-47 [facility] Comment on above: Order Comment: Comme nts: Day #1 Reason for Laboratory Test Result Comment: NO S PECIMEN COLLECTED. PATIENT DISCHARGED Performed By: #### L 100.0500 #### [facility] [address] [place], [address] HGB Normal 12.0-15.0 [facility] Comment on above: Order Comment: Comme nts: Day #1 Reason for Laboratory Test Result Comment: NO S PECIMEN COLLECTED. PATIENT DISCHARGED Performed By: #### L 100.0500 #### [facility] [address] [place], [address] MCH Normal 27.0-32.0 [facility] Comment on above: Order Comment: Comme nts: Day #1 Reason for Laboratory Test Result Comment: NO S PECIMEN COLLECTED. PATIENT DISCHARGED Performed By: #### L 100.0500 #### [facility] [address] [place], [address] MCHC Normal 32-36 [facility] Comment on above: Order Comment: Comme nts: Day #1 Reason for Laboratory Test Result Comment: NO S PECIMEN COLLECTED. PATIENT DISCHARGED Performed By: #### L 100.0500 #### [facility] [address] [place], [address] MCV Normal 81-99 [facility] Comment on above: Order Comment: Comme nts: Day #1 Reason for Laboratory Test Result Comment: NO S PECIMEN COLLECTED. PATIENT DISCHARGED Performed By: #### L 100.0500 #### [facility] [address] [place], [address] PLT Normal 150-450 [facility] Comment on above: Order Comment: Comme nts: Day #1 Reason for Laboratory Test Result Comment: NO S PECIMEN COLLECTED. PATIENT DISCHARGED Performed By: #### L 100.0500 #### [facility] [address] [place], [address] RBC Normal 4.2-5.4 [facility] Comment on above: Order Comment: Comme nts: Day #1 Reason for Laboratory Test Result Comment: NO S PECIMEN COLLECTED. PATIENT DISCHARGED Performed By: #### L 100.0500 #### [facility] [address] [place], [address] RDW CV Normal 11.6-14.6 [facility] Comment on above: Order Comment: Comme nts: Day #1 Reason for Laboratory Test Result Comment: NO S PECIMEN COLLECTED. PATIENT DISCHARGED Performed By: #### L 100.0500 #### [facility] [address] [place], [address] RDW SD Normal 35.1-43.9 [facility] Comment on above: Order Comment: Comme nts: Day #1 Reason for Laboratory Test Result Comment: NO S PECIMEN COLLECTED. PATIENT DISCHARGED Performed By: #### L 100.0500 #### [facility] [address] [place], [address] WBC Normal 4.4-11.0 [facility] Comment on above: Order Comment: Comme nts: Day #1 Reason for Laboratory Test Result Comment: NO S PECIMEN COLLECTED. PATIENT DISCHARGED Performed By: #### L 100.0500 #### [facility] [address] [place], [address] (ROM) Rupture Of Membraneson 03-04-2024 ROM Positive Abnormal Negative [facility] Comment on above: Result Comment: Amni otic fluid present indicates rupture of Membranes. RESULTS CALLED TO WHIT 03/04/24 Dutch Majano. REPORT READ BACK BY SAME . Performed By: #### M 100.505 #### [facility] [address] [place], [address] AST(SGOT)on 03-04-2024 AST [Catalytic activity/Vol] 20 U/L Normal 15-37 [facility] Comment on above: Performed By: #### L 501.1400, L501.1105, L501.0900, L501.4405, L501.4100 #### [facility] [address] [place], [address] Alanine Aminotransferas (SGP T)on 03-04-2024 ALT [Catalytic activity/Vol] 22 U/L Normal 13-56 [facility] Comment on above: Performed By: #### L 501.1400, L501.1105, L501.0900, L501.4405, L501.4100 #### [facility] [address] [place], [address] CBC W/Diff, Automatedon 11-04 24-2023 Absolute Lymph 1.77 X10 3/uL Normal 0.83-4.51 [facility] Comment on above: Performed By: #### Lorna GONZALEZ, L100.0100 #### [facility] [address] [place], [address] Absolute Neut 7.2 X10 3/uL Normal 2.0-7.7 [facility] Comment on above: Performed By: #### Lorna GONZALEZ, L100.0100 #### [facility] [address] [place], [address] Basophils/100 WBC (Bld) 0.2 % Normal 0-1 [facility] Comment on above: Performed By: #### Lorna GONZALEZ, L100.0100 #### [facility] [address] [place], [address] Eosinophils/100 WBC (Bld) 0.7 % Normal 0-5 [facility] Comment on above: Performed By: #### Lorna GONZALEZ, L100.0100 #### [facility] [address] [place], [address] Erythrocyte distribution width (RBC) [Ratio] 13.2 % Normal 11.6-14.6 [facility] Comment on above: Performed By: #### Lorna GONZALEZ, L100.0100 #### [facility] [address] [place], [address] Hematocrit (Bld) [Volume fraction] 33.3 % Low 37-47 [facility] Comment on above: Performed By: #### Lorna GONZALEZ, L100.0100 #### [facility] [address] [place], [address] Hemoglobin (Bld) [Mass/Vol] 11.2 g/dL Low 12.0-15.0 [facility] Comment on above: Performed By: #### Lorna GONZALEZ, L100.0100 #### [facility] [address] [place], [address] IG% 0.600 Normal 0.0-0.9 [facility] Comment on above: Result Comment: IG% - Immature Granulocytes (promyelocytes, myelocytes and metamyelocytes) > 1% indicates that a LEFT SHIFT is Present. Performed By: #### Lorna GONZALEZ, L100.0100 #### [facility] [address] [place], [address] Lymphocytes/100 WBC (Bld) 18.2 % Low 19-41 [facility] Comment on above: Performed By: #### Lorna GONZALEZ, L100.0100 #### [facility] [address] [place], [address] MCH (RBC) [Entitic mass] 29.3 pg Normal 27.0-32.0 [facility] Comment on above: Performed By: #### Lorna GONZALEZ, L100.0100 #### [facility] [address] [place], [address] MCHC (RBC) [Mass/Vol] 33.6 g/dL Normal 32-36 [facility] Comment on above: Performed By: #### Lorna GONZALEZ, L100.0100 #### [facility] [address] [place], [address] MCV (RBC) [Entitic vol] 87.2 fL Normal 81-99 [facility] Comment on above: Performed By: #### Lorna GONZALEZ, L100.0100 #### [facility] [address] [place], [address] Monocytes/100 WBC (Bld) 6.2 % Normal 0-10 [facility] Comment on above: Performed By: #### Lorna GONZALEZ, L100.0100 #### [facility] [address] [place], [address] Neutrophils/100 WBC (Bld) 74.1 % High 47-70 [facility] Comment on above: Performed By: #### Lorna GONZALEZ, L100.0100 #### [facility] [address] [place], [address] Nucleated RBC (Bld) [#/Vol] 0 10*3/uL Normal 0-5 [facility] Comment on above: Performed By: #### Lorna GONZALEZ, L100.0100 #### [facility] [address] [place], [address] Platelet mean volume (Bld) [Entitic vol] 11.9 fL Normal 6.2-12.0 [facility] Comment on above: Performed By: #### Lorna GONZALEZ, L100.0100 #### [facility] [address] [place], [address] Platelets (Bld) [#/Vol] 211 10*3/uL Normal 150-450 [facility] Comment on above: Performed By: #### Lorna GONZALEZ, L100.0100 #### [facility] [address] [place], [address] RBC (Bld) [#/Vol] 3.82 10*6/uL Low 4.2-5.4 [facility] Comment on above: Performed By: #### Lorna GONZALEZ, L100.0100 #### [facility] [address] [place], [address] RDW SD 41.1 fl Normal 35.1-43.9 [facility] Comment on above: Performed By: #### Lorna GONZALEZ, L100.0100 #### [facility] [address] [place], [address] WBC (Bld) [#/Vol] 9.7 10*3/uL Normal 4.4-11.0 [facility] Comment on above: Performed By: #### B TS, L100.0100 #### [facility] [address] [place], [address] Discharge Instructionon 02-19 Discharge Instruction [facility] Medical Records Department [address] [place] [address] Instructions for Home/Discharge Instructions 03/04/24 1618 MR#: [id number] Acct: [id number] Name: HELIO RUSSELL Rep #: [id number] : 2000 23 From: Crystal Leonardo DO PCP: Dr. Marbella Park MD Status:ADM IN Discharge Instructions Diet Discharge Diet: No restrictions Activity Discharge Activity: May Not Drive (for 2 weeks or while taking narcotic pain medications.), May Shower and May Take a Tub Bath (in 7 days.) May resume sexual activity in: 4-6 weeks Weight Bearing Status: Full weight bearing Lifting Restrictions: 20 pounds Dressing / Incision Call your doctor if your incision/area has: Continuous Slow Oozing, Sudden Increased Bleeding, Increased Pain/ Swelling, Increased Redness and Foul Smelling Discharge Call your doctor if you observe: Fever of 101 or Higher and Using more than 1 pad per hour Suture Line Care: Avoid Pulling/Pushing and Avoid Pinching/Bending Cleanse incision/area with: Soap Water and Keep Dressing Clean Dry Follow Up Care Please Follow Up With: Crystal Leonardo DO When: Call [phone] to make an appointment for an incision check in 1-2 weeks. Test Results: Test results from this visit will be discussed in further detail at your follow-up appointment, if applicable. Discharge Plan Admission Admit Date/Time: 03/04/24 14:06 Primary Reason for Your Visit: section Attending Provider: Crystal Leonardo Primary Care Provider: Marbella Park Discharge Orders/Prescription s Prescriptions: New ibuprofen 800 mg tablet 800 mg PO Q8H PRN (Reason: pain) Qty: 30 0RF oxycodone-acetamino phen [Percocet] 5-325 mg tablet 1 tab PO Q4H PRN (Reason: pain) 7 Days Qty: 20 0RF Rx Instructions: 1-2 tabs q 4 hrs as needed for pain Continued Adult 50 Plus Probiotic 4 billion cell capsule 4,000 mmu cells PO DAILY lamotrigine [Lamictal] 200 mg tablet 150 mg PO DAILY Gummies 400 mcg-35 mg- 25 mg-5 mg tablet,chewable 2 tab PO DAILY famotidine [Acid Controller] 20 mg tablet 20 mg PO BID Discontinued promethazine 12.5 mg tablet 12.5 mg PO Q6H PRN (Reason: nausea and vomiting) Qty: 90 1RF Rx Instructions: 1-2 tabs PO every 6 hours as needed for nausea/vomiting Referrals / Follow Up: Marbella Park MD [Primary Care Provider] - Disposition Disposition (needs filled in before D/C Order can be placed): Home, Self Care 03/04/24 1622 Crystal Leonardo DO CC: Dr. Marbella Park MD Signed [facility] H AND P Exam - OB/GYNon 02-19 H&P Exam - [employer] [facility] Medical Records Department [address] [place] [address] H P Exam - [employer] 03/04/24 1617 MR#: [id number] Acct: [id number] Name: HELIO RUSSELL Rep #: [id number] : 2000 23 From: Crystal Leonardo DO PCP: Dr. Marbella Park MD Status:ADM IN Location: [facility]-5 HPI - General General Date of Admission: 03/04/24 HPI Narrative MARCELLUS RUSSELL, is a 23 y/o @ 38 weeks who presents to [facility] with spontaneous rupture of membranes and breech presentation. Maternal Data Information DENISE Calculator Estimated Delivery Date Method Current WG Current Estimate 03/18/24 Manual 38w 0d IVF TRNSFR 07/02 PFSH PFSH Medical History (Updated 03/04/24 @ 15:00 by Chavo Boothe) Infertility Psychiatric disorder Irregular menses Pre-conception counseling Generalized anxiety disorder Burning with urination IBS (irritable bowel syndrome) Seasonal allergies Home Medications ???Medication ???Instructions ???Recorded ???Last Taken ???Type lactobacillus combination no.9 4 4,000 mmu cells PO DAILY 02/20/21 03/03/24 17:00 History billion cell capsule (Adult 50 Gastro/vaginal health 4,000 mmu Plus Probiotic) cells lamotrigine 200 mg tablet 150 mg PO DAILY 08/05/23 03/02/24 17:00 History (Lamictal) 150 mg promethazine 12.5 mg tablet 12.5 mg PO Q6H PRN nausea and 09/23/23 Unknown Rx vomiting #90 tabs PNV 153-FA 400 mcg-om3 35 mg-dha 2 tab PO DAILY 03/04/24 03/03/24 17:00 History 25 mg-epa 5 mg-fish oil chew 2 tabs tablet ( Gummies) famotidine 20 mg tablet (Acid 20 mg PO BID 03/04/24 03/03/24 17:00 History Controller) Allergy/AdvReac Type Severity Reaction Status Date / Time gluten Allergy Intermediate Nausea/Vom/ Verified 03/04/24 13:42 Diarrhea doxycycline Allergy Unknown Hives Verified 03/04/24 13:42 sulfamethoxazole (From Allergy Unknown Hives Verified 03/04/24 13:42 Bactrim) trimethoprim (From Bactrim) Allergy Unknown Hives Verified 03/04/24 13:42 Family History Father Hypertension Myocardial infarction, Onset Age: 55 A-fib Grandmother CHF (congestive heart failure) Diabetes MATERNAL Grandfather Prostate cancer Colon cancer Other Alcoholism Anxiety and depression Arthritis Surgical History [place] teeth extracted S/P tonsillectomy Social History adopted: No household members: spouse 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 pets and animals: Yes pets and animals: dog(s) history of recent travel: No sexually active: Yes Smoking Status: Never smoker alcohol intake: current alcohol intake frequency: a few times a month details: not while substance use type: does not use diet: gluten free well-balanced diet: about half the time caffeine: Yes Type: carbonated beverages Number of servings: 1 eating out: 1-3 times/week during the past year weight has: remained stable what type of physical activity do you participate in: walking frequency: 3-4 times per week duration: 45-60 minutes/day jak/hinduism: Sikhism seatbelt use: always do you feel safe at home: Yes additional social history: - Shaun Russell History 1 Elective abortions Hx Para 0 Spontaneous abortions Hx # Term Pregnancies Ectopic pregnancies Hx # Pregnancies Multiple births # of living children Visit Details Expected Delivery Route/Plan Labor Preferences- CB/BF classes: february 20 labor support person: [] labor intervention preferences: [] pain management options preferred: natural cut cord/dad catch: [] : [] PP control planned: [] discussed possible routes of delivery and associated risks: [] special requests: [] Plans Covid status: [] Flu vaccine: declined Tdap vaccine: declined Rhogam:na LARC form signed: done movement and labor precautions reviewed. Problem list reviewed and updated with the most current plan of care details and appropriate orders placed. Relevant counseling for the gestational age provided. Continue routine care and follow up unless otherwise noted in visit notes/problem list details OB Flowsheet Initial Weight: Not Recorded Date -???-???-???-???-?? ?-???-???-???-???-? ??-???-???- EGA Weight BP Urine Prot -???-???-???-???-?? ?-???-???-???-???-? ??-???-???- Glucose FHR FuHt Pres Dilation -???-???-???-???-?? ?-???-???-???-???-? ??-???-???- Effaced St Visit Note 08/08/23 -???-???-???-???-?? ?-???-???-???-???-? ??-???-???- 8w 1d 176 lb 6 oz 127/83 -???-???-???-???-?? ?-???-???-???-???-? ??-???-???- 170 -???-???-???- (more content not included)... Normal [facility] L509.8000on 03-04-2024 Syphilis Abs Non-Reactive Normal [facility] Comment on above: Performed By: #### M 100.505 #### [facility] [address] [place], [address] Operative Reporton 4 Operative Report [facility] Medical Records Department [address] [place] [address] Operative Report 03/04/24 1738 MR#: [id number] Acct: [id number] Name: JOOHELIOSHAD PINOY Rep #: [id number] : 2000 23 From: Crystal Leonardo DO PCP: Dr. Marbella Park MD Status:ADM IN Location: [id number] Assessment Plan (1) Breech presentation: COMMENT: unicornuate uterus, primary csection scheduled for 03/12 @ 7:15 with SM, will cancel if spontaneously converts, (2) Abnormal glucose level: COMMENT: Nl 3 hr GTT (3) Consumes gluten free diet: (4) Unicornuate uterus: (5) In vitro fertilization: COMMENT: 5 day embryo transfer on 07/03/23. echo 22-24 wk. growth US at 36 weeks, weekly nsts at 36 delivery 39. (6) Supervision of high-risk : QUALIFIERS: Trimester: second trimester Qualified Code(s): O09.92 - Supervision of high risk , unspecified, second trimester COMMENT: PRR , DENISE 03/18/24, boy Mamadou Shaun (7) : QUALIFIERS: Weeks of gestation: 37 weeks Qualified Code(s): Z3A.37 - 37 weeks gestation of COMMENT: GBS neg, nl anatomy, already had genetic Carrier testing with infertility doctors; AFP done: (8) Infertility: (9) Bipolar 2 disorder: COMMENT: on lamictal. given no nipple discharge and regular menses, prolactin not obtained. low likelihood. (10) Depression: QUALIFIERS: Depression Type: unspecified Qualified Code(s): F32.A - Depression, unspecified (11) IBS (irritable bowel syndrome): QUALIFIERS: Irritable bowel syndrome type: with constipation Qualified Code(s): K58.1 - Irritable bowel syndrome with constipation (12) Generalized anxiety disorder: COMMENT: stable (13) Seasonal allergies: Maternal Data Information DENISE Calculator Estimated Delivery Date Method Current WG Current Estimate 03/18/24 Manual 38w 0d IVF TRNSFR 07/02 Final DENISE: 03/18/24 [place] Doctor Who Attended Delivery: Pascual Beth Operative Report (OB) Cecarean Details Procedure Type: low transverse Surgeon: Crystal Leonardo Date of Procedure: 03/04/24 Procedure Start Time: 16:31 Procedure Stop Time: 17:02 Time of Delivery: 16:37 Pre-Operative Diagnosis: Breech and Other (spontaneous rupture of membranes ) Other Pre-Operative diagnosis: none Post-Operative Diagnosis: Same as Pre-operative diagnosis Classification: ALICE Type of Anesthesia: Spinal Antibiotic Given: Ancef 2 grams IV x1 and Zithromax 500 mg/5 mL X1 Drain: Rosario to straight drain Estimated Blood Loss: 300cc Findings Description of surgery: The patient is a 23 y/o @ 38 weeks who presented for a primary for breech and SROM. Spinal anesthesia was placed without difficulty. Rosario catheter was placed. The patient was placed in the dorsal supine position with leftward tilt. Patient was prepped and draped in the normal sterile fashion. Pfannenstiel skin incision was made with the scalpel and carried through to the underlying layer of fascia with the scalpel. Fascia was nicked in the midline and the incision extended laterally. The rectus bellies were dissected off superiorly and inferiorly with out complication both sharply and bluntly. The peritoneum was entered digitally. The incision was stretched and a low transverse uterine incision was made with the scalpel. The 's feet were delivered first, followed by the torso, then the anterior shoulder, followed by the posterior shoulder and finally the head was delivered atraumatically without complications. The cord was clamped and cut and the was handed off to awaiting nurse. The placenta was delivered spontaneously immediately following and was noted to be intact and have a three-vessel cord. The uterus was exteriorized cleared of all clots and debris, and the incision was closed in a double layer closure using #1Vicryl followed by a #1 Monocryl. The uterus was noted to be abnormal, with one functioning horn and one non-functioning horn. There are 2 ovaries and 2 fallopian tubes that were noted to be within normal limits. The uterus was returned to the maternal abdomen and gutters were cleared of all clots and debris. The peritoneum was closed with 3-0 Monocryl in a running fashion. Fascia was closed with 0 PDS in a running fashion. Subcutaneous tissue was copiously irrigated and the skin was closed with 3-0 Monocryl in a subcuticular fashion. Mepilex dressing was applied without complication. Patient was taken to recovery in stable condition. Surgical findings: abnormal uterus with one functioning horn and one non-functioning horn. bilateral ovaries and fallopian tubes. Viable male infant. Presentation: [place] Breech Amniotic Membrane Rupture Type: Spontaneous Amniotic Fluid Description: Clear Placental Delivery Description: Manual Removal Specimen collected: No (more content not included)... Normal [facility] Protein+Creatinine Ratio,Uri neon 03-04-2024 PROT:CRE RATIO 130 mg/g CRE Normal 0-200 [facility] Comment on above: Performed By: #### L 501.1400, L501.1105, L501.0900, L501.4405, L501.4100 #### [facility] [address] [place], [address] Protein (U) [Mass/Vol] 15.8 mg/dL High <11.9 [facility] Comment on above: Performed By: #### L 501.1400, L501.1105, L501.0900, L501.4405, L501.4100 #### [facility] [address] [place], [address] UR CREAT 122.00 mg/dL Normal NO RANGE EST. [facility] Comment on above: Performed By: #### L 501.1400, L501.1105, L501.0900, L501.4405, L501.4100 #### [facility] [address] [place], [address] Serum Creatinine AND GFRon 1 05-04-2023 Creatinine [Mass/Vol] 0.54 mg/dL Low 0.55-1.02 [facility] Comment on above: Result Comment: The validity of the calculated GFR GFRAA in patients over 70 years has not been determined. Clinical correlation is essential. Performed By: #### L 501.1400, L501.1105, L501.0900, L501.4405, L501.4100 #### [facility] [address] [place], [address] ECRCL 181.97 ml/min Normal [facility] Comment on above: Performed By: #### L 501.1400, L501.1105, L501.0900, L501.4405, L501.4100 #### [facility] [address] [place], [address] EST GFR - AA 175 mL/min Normal >60 [facility] Comment on above: Result Comment: Afri can Montserratian GFR Calc Performed By: #### L 501.1400, L501.1105, L501.0900, L501.4405, L501.4100 #### [facility] [address] [place], [address] GFR/1.73 sq M.predicted among non-blacks MDRD (S/P/Bld) [Vol rate/Area] 145 mL/min/{1.73_m2} Normal >60 [facility] Comment on above: Result Comment: Non- GFR Calc Performed By: #### L 501.1400, L501.1105, L501.0900, L501.4405, L501.4100 #### [facility] [address] [place], [address] Type AND Screenon 03-04-2024 Ab SCREEN GEL Negative Normal [facility] Comment on above: Order Comment: S Performed By: #### B TS, L100.0100 #### [facility] [address] [place], [address] ABO and Rh group Nom (Bld) Blood group O Rh(D) positive Normal [facility] Comment on above: Order Comment: S Performed By: #### B TS, L100.0100 #### [facility] [address] [place], [address] Uric Acidon 03-04-2024 URIC 4.4 mg/dL Normal 2.6-6.0 [facility] Comment on above: Result Comment: The drugs N-Acetylcysteine and Metamizole may falsely depress this assay. Performed By: #### L 501.1400, L501.1105, L501.0900, L501.4405, L501.4100 #### [facility] [address] [place], [address] Progress Noteon 09-03-2023 Rn Palliative Authentication Interface Message Text [facility] MATERNAL- MEDICINE CONSULT Referring/Requestin g Provider: Ca Cesar MD OB: .Crystal Iyer DO INDICATION FOR CONSULT: unicornuate uterus HISTORY OF PRESENT ILLNESS: Patient is a 23 y.o. at 11w4d who presents for consultation regarding unicornuate uterus. She has some nausea. Managed by CHO intake. 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 She was dx with unicornuate uterus with left tubal patency. Bilateral normal appearing ovaries on RGI evaluation. Normal bilateral kidneys [place] radiology evaluation. No vaginal bleeding. No OB concerns. She takes Lamictal for bipolar disorder. She was decreased from 200 to 150 mg prior to and is doing well on this dose. They had normal preimplantation genetic testing for this . 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 They have established care with Dr. Moody and plan to delivery at [facility], which is 5 mins from their home. OB History Para Term AB Living 1 0 0 0 0 0 SAB IAB Ectopic Multiple Live Births 0 0 0 0 0 # Outcome Date GA Lbr Jamal/2nd Weight Sex Type Anes PTL Lv 1 Current Past Medical History: Diagnosis Date Anxiety Bipolar disease during in first trimester Depression Past Surgical History: Procedure Laterality Date TONSILLECTOMY AND ADENOIDECTOMY 03/2016 PERTINENT FAMILY HISTORY: Family History Problem Relation Age of Onset Hypertension Father Heart Disease Father Diabetes Mellitus II Maternal Grandmother Diabetes Mellitus II Maternal Grandfather Cancer Paternal Grandfather MEDS: Outpatient Medications Marked as Taking for the 09/03/23 encounter (Office Visit) with Guadalupe Canchola, Medication Sig Dispense Refill Vit w/Yu-Cuoyympty-AK (PNV PO) Take by mouth daily lamoTRIgine (LAMICTAL) 150 MG tablet Take 1 Tablet (150 mg) by mouth daily pyridoxine (VITAMIN B-6) 50 MG TABS Take by mouth 2 times daily Doxylamine Succinate, Sleep, (UNISOM SLEEPTABS PO) Take by mouth nightly at bedtime ondansetron (ZOFRAN-ODT) 4 mg STARTER PACK Take by mouth daily as needed for Nausea Probiotic Product (PROBIOTIC DAILY PO) Take by mouth daily ALLERGY: Allergies Allergen Reactions Bactrim [Sulfamethoxazole-T rimethoprim] Hives Doxycycline Hives Gluten Meal Nausea And Vomiting REVIEW OF SYSTEMS: Review of Systems HENT: Negative. Respiratory: Negative. Cardiovascular: Negative. Gastrointestinal: Positive for nausea. Genitourinary: Negative. Skin: Negative. Psychiatric/Behavio ral: Negative. PHYSICAL EXAM: VITAL SIGNS: BP 118/74 Pulse 74 Resp 16 Ht 167.6 cm Wt 78.7 kg (173 lb 9.6 oz) SpO2 98% BMI 28.02 kg/m Physical Exam Vitals reviewed. Constitutional: General: She is active. HENT: Head: Atraumatic. Pulmonary: Effort: Pulmonary effort is normal. Neurological: Mental Status: She is alert. IMAGING: Normal NT - see report IMPRESSION AND RECOMMENDATIONS: Marcellus is a 23 y.o. at 11w4d with Active Non-Hospital Problems Diagnosis Date Noted Unicornuate uterus affecting in first trimester, antepartum 09/02/2023 Priority: High Unicornuate uterus is associated with high incidence of renal abnormalities in up to 40% of women. Marcellus had a renal US demonstrating bilateral normal appearing kidneys in the normal anatomic location. Unicornuate uterus is also associated with obstetrical complications including increased risks of miscarriage, prematurity, intrauterine growth restriction, antepartum and bleeding, cervical incompetence, abnormal presentation, -associate d hypertension, and delivery. One study estimated the rates of first trimester miscarriage (24.3%), ectopic (2.7%), second trimester loss (9.7%), delivery (20.1%) and stillbirth (3.8%). Live rate was 51.5%. Atilio D, Pascale MR, Gold BK. outcomes in unicornuate uteri: a review. Fertil Steril. 2009;91(5):1886. Epub 2007Aug 13. Recommendations: Anatomic survey between 18-20 weeks gestation with transvaginal cervical length screening. Serial growth ultrasound every 4 weeks starting at 24 weeks. Prompt evaluation of PTL symptoms. Additional follow-up as clinically indicated. conceived using assisted reproductive technology (ART) 09/02/2023 Patient had FET 5 day blastocyst on 07/03/23 DENISE 03/20/24 (DENISE confirmed by 5w6d CRL) Recommend echocardiogram Abnormal genetic test during 09/02/202301/11 [facility] carrier screening was positive for Zellweger spectrum disorder FOB Shaun Russell screened negative (his carrier residual risk after negative result is 1 in 14,300). They had low risk preimplantation genetic testing and were told their baby is male. We reviewed this inform (more content not included)... Normal [facility] Chlamydia trachomatis rRNA d etection by probe and target amplification methodOrdered By: Crystal Zimmerman on 08-08-2023 C. trachomatis rRNA EDMOND+probe Ql (Unsp spec) Negative Negative [facility] Culture, urineOrdered By: Jared Zimmerman on 08-08-2023 Bacteria identified Cx Nom (U) Positive [facility] - Microbiology an d Antimicrobial susceptibilityOrdered By: Crystal Zimmerman on 08-08-2023 N. gonorrhoeae DNA EDMOND+probe Ql (Unsp spec) Negative Negative [facility] Comment on above: Performed at: =G - [facility] [address], [place] [id number] Director: Ashley King MD, Phone: [phone] QUANTIFERON TB INCUBATED [CC L]on 02-12-2023 Mitogen minus Nil >9.98 Normal >=0.50 [facility] Comment on above: Performed By: #### 2 02887 #### [facility],[address] [place] [address] TB Gamma Interferon Negative Normal [facility] Comment on above: Performed By: #### 2 03519 #### [facility],[address] [place] [address] TB Gamma Interpretation Infection with M . tuberculosis complex is unlikely. If latent tuberculosis infec Normal [facility] Comment on above: Result Comment: [facility] [address] [place] [address] Isaac Correa III, M.D. [id number] Performed By: #### 2 00067 #### [facility],[address] [place] [address]181 TB NIL 0.02 IU/mL Normal <=8.00 [facility] Comment on above: Performed By: #### 2 81521 #### [facility],[address] [place], [place] [id number] TB1 Ag minus Nil <0.00 Normal <0.35 [facility] Comment on above: Performed By: #### 2 89449 #### [facility],[address] [place], [place] [id number] TB2 Ag minus Nil <0.00 Normal <0.35 [facility] Comment on above: Performed By: #### 2 66275 #### [facility],[address] [place], [place] [id number] HEP B SURFACE AB, QUANT [CCL ]on 02-07-2023 HepB Surface Ab,Qual Positive Normal [facility] Comment on above: Result Comment: Cons istent with serological evidence of immunity to Hepatitis B Virus. Performed By: #### 2 73516 #### [facility],[address] [place] [address] HepB SurfaceAb,Quant >1000.00 Normal [facility] Comment on above: Result Comment: <8 m IU/mL: No serological evidence of immunity to Hepatitis B Virus. >/= 8 to <12 mIU/mL: No serological evidence of immunity to Hepatitis B Virus. >/= 12 mIU/mL: Consistent with serological evidence of immunity to Hepatitis B Virus. [place] [id number] Isaac Correa III, M.D. [id number] Performed By: #### 2 74066 #### [facility],[address] [place] [address] MEASLES IGG ANTIBODY [CCL]on 02-07-2023 Measles IgG, Qual Positive Normal Positive [facility] Comment on above: Result Comment: The result suggests recent or past exposure to Measles virus or Measles vaccination. The current test does not detect neutralizing antibodies. Positive result may also be seen due to presence of passively-transferred antibodies. Please correlate with [place] [address] Isaac Correa III, M.D. [id number] Performed By: #### 2 47905 #### [facility],[address] [place] [address] MUMPS IGG AB [CCL]on 023 Mumps IgG, Qual Positive Normal Positive [facility] Comment on above: Result Comment: The result suggests recent or past exposure to Mumps virus or Mumps vaccination. The current test does not detect neutralizing antibodies. Positive result may also be seen due to presence of passively-transferred antibodies. Please correlate with patient's history. [facility] [place] [address] Isaac Correa III, M.D. [id number] Performed By: #### 2 48158 #### [facility],[address] [place] [address] RUBELLA IgG ANTIBODY [CCL]on 02-07-2023 Rubella IgG Ab, Qual Positive Normal Positive [facility] Comment on above: Result Comment: The result suggests recent or past exposure to Rubella virus or history of Rubella vaccination. Positive result may also be seen due to presence of passively-transferred antibodies. Please correlate with patient's history. [facility] [address] [place] [address] Isaac Correa III, M.D. [id number] Performed By: #### 2 52314 #### [facility],[address] [place] [address] URINE COTININE TEST [[facility]]on 02-06-2023 COTININE Negative Normal NORMAL: NEGATIVE [facility] Comment on above: Result Comment: The COT One Step Cotinine Device (Urine) yields a positve result when the Cotinine in urine exceeds 200 ng/mL. A Cotinine concentration > 200 ng/mL indicates an active tobacco product user. The window of detection for Cotinine in urine at a cutoff level of 200 ng/mL is expected to be up to 2-3 days after nicotine use. Performed By: #### 2 89795 #### [facility],[address] [place] [address] COVID-19 virus antigen assay Ordered By: Salvador Marcus on 01-26-2023 SARS-CoV-2 (COVID-19) Ag IA.rapid Ql (Resp) [facility] Basophil percentageOrdered B y: Ca Cesar on 01-20-2023 Bilirubin [Mass/Vol] 0.60 mg/dL 0.20-1.00 [facility] Comment on above: For patients on eltr ombopag therapy, use of Dimension [place] TBIL is not recommended. Chloride [Moles/Vol] 106 mmol/L 98-107 [facility] Glucose [Mass/Vol] 93 mg/dL 74-106 [facility] Potassium [Moles/Vol] 3.6 mmol/L 3.5-5.1 [facility] Protein [Mass/Vol] 7.1 g/dL 6.4-8.2 [facility] Sodium [Moles/Vol] 139 mmol/L 136-145 [facility] Testosterone [Mass/Vol] 31.63 ng/dL [facility] Comment on above: CENTRAL 90% REFERENC E RANGES MALE AGE <50 197.44 - 669.58 ng/dL MALE AGE > or = 50 187.72 - 684.19 ng/dL FEMALE AGE <50 8.38 - 35.01 ng/dL FEMALE AGE > or = 50 <7.00 - 35.92 ng/dL Effective as of 11/14/20 HIV 1 and HIV-2 antibody ass ay with HIV-1 p24 antigen detectionOrdered By: Ca Cesar on 01-20-2023 HIV 1+2 Ab+HIV1 p24 Ag IA Ql Non-Reactive Nonreactive [facility] - Chemistry and C hemistry - challengeOrdered By: Ca Cesar on 01-20-2023 ALP [Catalytic activity/Vol] 58 U/L 45-117 [facility] ALT [Catalytic activity/Vol] 19 U/L 13-56 [facility] CO2 [Moles/Vol] 27.0 mmol/L 21.0-32.0 [facility] Globulin (S) [Mass/Vol] 3.1 g/dL 2.2-4.2 [facility] Urea nitrogen/Creatinine [Mass ratio] 11.7 mg/mg 10-20 [facility] Neisseria gonorrhoeae genita l PCROrdered By: Ca Cesar on 01-20-2023 N. gonorrhoeae DNA EDMOND+probe Ql (Genital specimen) [facility] No Panel InformationOrdered By: Ca Cesar on 01-20-2023 Chlamydia trachomatis (PCR) [facility] Dehydroepiandrosterone Sulfate 254.0 ug/dL 110.0-431.7 [facility] Estimated GFR (MDRD) Amer 105 mL/min >60 [facility] Comment on above: GFR Calc Estimated GFR (MDRD) Non-Af Amer 86 mL/min >60 [facility] Comment on above: Non- GFR Calc Hepatitis B Surface Antigen Non-Reactive Nonreactive [facility] Hepatitis C Antibody Non-Reactive Nonreactive [facility] Comment on above: Non Reactive: < 0.8 Equivocal: >/= 0.8 to < 1.0 Reactive: >/= 1.0The CDC recommends that a reactive/equivocal HCV antibody result be followed up by the HCV Nucleic Acid Amplificationtest (370134) Rubella IgG Antibody Reactive Nonreactive [facility] Comment on above: Antibody Results Int erpretation of Immune Status Non Reactive Presumed Non-Immune Equivocal Equivocal Reactive Presumed Immune Thyroid Stimulating Hormone (TSH) 1.25 uIU/mL 0.358-3.74 [facility] Serum Treponema species anti body detectionOrdered By: Ca Cesar on 01-20-2023 Treponema sp Ab Ql (S) Non-Reactive [facility] Serum Varicella zoster virus IgG antibody assay by immunoassay (units/volume)Ordered By: Ca Cesar on 01-20-2023 VZV IgG IA Qn (S) 2524 index Immune >165 [facility] Comment on above: Negative <135 Equivo camila 135 - 165 Positive >165A positive result generally indicates exposure to thepathogen or administration of specific immunoglobulins,but it is not indication of active infection or stageof disease.Performed at: - [facility] [id number] Director: David Baez PhD, Phone: [phone] Serum or plasma 17-hydroxypr ogesterone measurement (mass/volume)Ordered By: Ca Cesar on 01-20-2023 17-Hydroxyprogesterone [Mass/Vol] 45 ng/dL . [facility] Comment on above: Adult Female Follicu lar 15 - 70 Luteal 35 - 290Performed at: - [facility] [address] [id number] Director: Francisco J Mercer MD, Phone: [phone] Serum or plasma albumin amairani urement (mass/volume)Ordered By: Ca Cesar on 01-20-2023 Albumin [Mass/Vol] 4.0 g/dL 3.2-5.0 [facility] Serum or plasma albumin/glob ulin mass ratioOrdered By: Ca Cesar on 01-20-2023 Albumin/Globulin [Mass ratio] 1.3 {ratio} 0.9-2.4 [facility] Serum or plasma calcium amairani urement (mass/volume)Ordered By: Ca Cesar on 01-20-2023 Calcium [Mass/Vol] 8.8 mg/dL 8.5-10.1 [facility] Serum or plasma creatinine m easurement (mass/volume)Ordered By: Ca Cesar on 01-20-2023 Creatinine [Mass/Vol] 0.85 mg/dL 0.55-1.02 [facility] Comment on above: The validity of the calculated GFR & GFRAA in patients over 70 years has not been determined. Clinical correlation is essential. Serum or plasma prolactin me asurement (mass/volume)Ordered By: Ca Cesar on 01-20-2023 Prolactin [Mass/Vol] 22.6 ng/mL [facility] Comment on above: NORMAL REFERENCE RAN GES FEMALE NON- 2.2 - 30.3 ng/mL 8.1 - 347.6 ng/mL POST-MENOPAUSAL 0.7 - 31.5 ng/mL MALE 2.5 - 17.4 ng/mL Serum or plasma urea nitroge n measurement (mass/volume)Ordered By: Ca Cesar on 01-20-2023 Urea nitrogen [Mass/Vol] 10 mg/dL 7-18 [facility] [place] [facility] Thin prep Papanicolaou smear with manual screeningOrdered By: Ca Cesar on 01-20-2023 Thin prep Papanicolaou smear with manual screening 11 U/L 15-37 [facility] [place] [facility] Thin prep Papanicolaou smear with manual screening 6 5-15 [facility] [place] [facility] Whole blood hemoglobin A1c/t otal hemoglobin ratio (mass fraction)Ordered By: Ca Cesar on 01-20-2023 HbA1c (Bld) [Mass fraction] 5.0 % 3.8-5.6 [facility] [place] [facility] Comment on above: Normal < 5.7 % Predi abetic 5.7 - 6.4 % Diabetic >or= 6.5 % Please note range changes. COVID-19 virus antigen assay Ordered By: Salvador Marcus on 01-15-2023 SARS-CoV-2 (COVID-19) Ag IA.rapid Ql (Resp) [facility] [place] [facility] COVID-19 virus antigen assay Ordered By: Salvador Marcus on 01-03-2023 SARS-CoV-2 (COVID-19) Ag IA.rapid Ql (Resp) [facility] [place] [facility] COVID-19 virus antigen assay Ordered By: Dr. Marcus on 07-30-2022 SARS-CoV-2 (COVID-19) Ag IA.rapid Ql (Resp) [facility] [place] [facility] COVID-19 virus antigen assay Ordered By: Dr. Marcus on 07-17-2022 SARS-CoV-2 (COVID-19) Ag IA.rapid Ql (Resp) [facility] [place] [facility] Laboratory - Chemistry and C hemistry - challengeOrdered By: Elsie Calvin on 07-13-2022 Free T4 [Mass/Vol] 1.28 ng/dL 0.76-1.46 [facility] No Panel InformationOrdered By: Elsie Calvin on 07-13-2022 Dehydroepiandrosterone Sulfate 220.0 ug/dL 110.0-431.7 [facility] [place] [facility] Thyroid Stimulating Hormone (TSH) 0.92 uIU/mL 0.358-3.74 [facility] [place] [facility] Serum or plasma calcitriol m easurement (mass/volume)Ordered By: Elsie Calvin on 07-13-2022 1,25-dihydroxyvitamin D3 [Mass/Vol] 41.2 pg/mL 24.8-81.5 [facility] [place] [facility] Comment on above: Performed at: [facility] [address] [id number] Director: Francisco J Mercer MD, Phone: [phone] Serum or plasma testosterone free measurement (mass/volume)Ordered By: Elsie Calvin on 07-13-2022 Testosterone Free [Mass/Vol] 0.5 pg/mL 0.0-4.2 [facility] [place] [facility] Comment on above: Performed at: [facility] [address] [id number] Director: David Baez PhD, Phone: [phone] at: [facility] [address] [id number] Director: Francisco J Mercer MD, Phone: [phone] Absolute lymphocyte countOrd ered By: HEALTH ASSESSMENT on 05-31-2022 Lymphocytes Auto (Unsp spec) [#/Vol] 2.69 10*3/uL 0.83-4.51 [facility] [place] [facility] Absolute reticulocyte countO rdered By: HEALTH ASSESSMENT on 05-31-2022 Reticulocytes (Bld) [#/Vol] 0.00 10*3/uL 0-5 [facility] [place] [facility] Basophil percentageOrdered B y: HEALTH ASSESSMENT on 05-31-2022 Basophil percentage 4.3 mg/dL 2.5-4.9 [facility] Bilirubin [Mass/Vol] 0.60 mg/dL 0.20-1.00 [facility] Comment on above: For patients on eltr ombopag therapy, use of Dimension [place] TBIL is not recommended. Chloride [Moles/Vol] 105 mmol/L 98-107 [facility] Cholesterol [Mass/Vol] 171 mg/dL <200 [facility] Comment on above: <200 mg/dL Desirable 200-240 mg/dL Borderline >240 mg/dL High Risk Glucose [Mass/Vol] 102 mg/dL 74-106 [facility] Comment on above: Fasting Glucose resu lt from 100 to 125 mg/dL suggests IMPAIRED HOMEOSTASIS per A.D.A. criteria. LDH [Catalytic activity/Vol] 236 U/L 84-246 [facility] [place] [facility] Neutrophils (Bld) [#/Vol] 5.2 10*3/uL 2.0-7.7 [facility] [place] [facility] Potassium [Moles/Vol] 3.7 mmol/L 3.5-5.1 [facility] Protein [Mass/Vol] 6.8 g/dL 6.4-8.2 [facility] Sodium [Moles/Vol] 139 mmol/L 136-145 [facility] Triglyceride [Mass/Vol] 52 mg/dL <199 [facility] Comment on above: The drugs N-Acetylcy steine and Metamizole may falsely depress this assay.Serum Triglycerides Reference Interval Normal <150 mg/dL Borderline high 150 - 199 mg/dL High 200 - 499 mg/dL Very High > or = 500 mg/dL WBC (Bld) [#/Vol] 8.6 10*3/uL 4.4-11.0 [facility] Blood erythrocytes count (nu mber/volume)Ordered By: HEALTH ASSESSMENT on 05-31-2022 RBC (Bld) [#/Vol] 4.11 10*6/uL 4.2-5.4 [facility] Blood hemoglobin measurement (mass/volume)Ordered By: HEALTH ASSESSMENT on 05-31-2022 Hemoglobin (Bld) [Mass/Vol] 12.3 g/dL 12.0-15.0 [facility] [place] [facility] Blood platelet mean volumeOr dered By: HEALTH ASSESSMENT on 05-31-2022 Platelet mean volume (Bld) [Entitic vol] 10.7 fL 6.2-12.0 [facility] [place] [facility] Determination of erythrocyte mean corpuscular volume (MCV)Ordered By: HEALTH ASSESSMENT on 05-31-2022 MCV (RBC) [Entitic vol] 92.5 fL 81-99 [facility] Direct bilirubinOrdered By: HEALTH ASSESSMENT on 05-31-2022 Bilirubin.direct [Mass/Vol] 0.14 mg/dL 0.00-0.30 [facility] [place] [facility] Hematocrit Auto (Bld) [Volum e fraction]Ordered By: HEALTH ASSESSMENT on 05-31-2022 Hematocrit (Bld) [Volume fraction] 38.0 % 37-47 [facility] [place] [facility] Laboratory - Chemistry and C hemistry - challengeOrdered By: HEALTH ASSESSMENT on 05-31-2022 ALP [Catalytic activity/Vol] 78 U/L 45-117 [facility] [place] [facility] ALT [Catalytic activity/Vol] 27 U/L 13-56 [facility] [place] [facility] Cholesterol.total/Cholest amanda in HDL [Mass ratio] 2.10 {ratio} [facility] [place] [facility] CO2 [Moles/Vol] 29.0 mmol/L 21.0-32.0 [facility] [place] [facility] Globulin (S) [Mass/Vol] 2.9 g/dL 2.2-4.2 [facility] Urea nitrogen/Creatinine [Mass ratio] 13.7 mg/mg 10-20 [facility] [place] [facility] Laboratory - Hematology and Cell countsOrdered By: HEALTH ASSESSMENT on 05-31-2022 Erythrocyte distribution width (RBC) [Entitic vol] 41.9 fL 35.1-43.9 [facility] Erythrocyte distribution width (RBC) [Ratio] 12.3 % 11.6-14.6 [facility] [place] [facility] MCH (RBC) [Entitic mass] 29.9 pg 27.0-32.0 [facility] [place] [facility] Nucleated RBC/100 WBC (Bld) [Ratio] 0 % 0-5 [facility] [place] [facility] MCHC Auto (RBC) [Mass/Vol]Or dered By: HEALTH ASSESSMENT on 05-31-2022 MCHC (RBC) [Mass/Vol] 32.4 g/dL 32-36 [facility] No Panel InformationOrdered By: HEALTH ASSESSMENT on 05-31-2022 Estimated GFR (MDRD) Amer 93 mL/min >60 [facility] [place] [facility] Comment on above: GFR Calc Estimated GFR (MDRD) Non-Af Amer 77 mL/min >60 [facility] [place] [facility] Comment on above: Non- GFR Calc Platelets bldOrdered By: [facility] ASSESSMENT on 05-31-2022 Platelets (Bld) [#/Vol] 238 10*3/uL 150-450 [facility] [place] [facility] Segmented neutrophils/100 WB C Auto (Bld)Ordered By: HEALTH ASSESSMENT on 05-31-2022 Segmented neutrophils/100 WBC (Bld) 60.1 % 47-70 [facility] [place] [facility] Serum or plasma albumin amairani urement (mass/volume)Ordered By: HEALTH ASSESSMENT on 05-31-2022 Albumin [Mass/Vol] 3.9 g/dL 3.2-5.0 [facility] Serum or plasma albumin/glob ulin mass ratioOrdered By: HEALTH ASSESSMENT on 05-31-2022 Albumin/Globulin [Mass ratio] 1.3 {ratio} 0.9-2.4 [facility] [place] [facility] Serum or plasma calcium amairani urement (mass/volume)Ordered By: HEALTH ASSESSMENT on 05-31-2022 Calcium [Mass/Vol] 8.9 mg/dL 8.5-10.1 [facility] Serum or plasma cholesterol in HDL measurement (mass/volume)Ordered By: HEALTH ASSESSMENT on 05-31-2022 Cholesterol in HDL [Mass/Vol] 83 mg/dL >40 [facility] [place] [facility] Comment on above: The drugs N-Acetylcy steine and Metamizole may falsely depress this assay. Reference Range HDL <40 mg/dL Low HDL Cholesterol HDL >or= 60 mg/dL High HDL Cholesterol Serum or plasma cholesterol in VLDL measurement (mass/volume)Ordered By: HEALTH ASSESSMENT on 05-31-2022 Cholesterol in VLDL [Mass/Vol] 10 mg/dL 5-40 [facility] [place] [facility] Serum or plasma creatinine m easurement (mass/volume)Ordered By: HEALTH ASSESSMENT on 05-31-2022 Creatinine [Mass/Vol] 0.95 mg/dL 0.55-1.02 [facility] Comment on above: The validity of the calculated GFR & GFRAA in patients over 70 years has not been determined. Clinical correlation is essential. Serum or plasma low density lipoprotein (LDL) cholesterol measurement (mass/volume)Ordered By: HEALTH ASSESSMENT on 05-31-2022 Cholesterol in LDL [Mass/Vol] 78 mg/dL 0-130 [facility] [place] [facility] Serum or plasma urea nitroge n measurement (mass/volume)Ordered By: HEALTH ASSESSMENT on 05-31-2022 Urea nitrogen [Mass/Vol] 13 mg/dL 7-18 [facility] [place] [facility] Serum or plasma uric acid me asurement (mass/volume)Ordered By: HEALTH ASSESSMENT on 05-31-2022 Urate [Mass/Vol] 3.5 mg/dL 2.6-6.0 [facility] [place] [facility] Comment on above: The drugs N-Acetylcy steine and Metamizole may falsely depress this assay. Thin prep Papanicolaou smear with manual screeningOrdered By: HEALTH ASSESSMENT on 05-31-2022 Thin prep Papanicolaou smear with manual screening 47 U/L 15-37 [facility] [place] [facility] Thin prep Papanicolaou smear with manual screening 5 5-15 [facility] [place] [facility] COVID-19 virus antigen assay Ordered By: Dr. Marcus on 05-02-2022 SARS-CoV-2 (COVID-19) Ag IA.rapid Ql (Resp) [facility] [place] [facility] No Panel InformationOrdered By: Dr. Naranjo on 03-26-2022 Miscellaneous Test See comment [facility] Comment on above: Sent directly to [facility] per ordering physician. COVID-19 virus antigen assay Ordered By: Dr. Marcus on 02-26-2022 SARS-CoV-2 (COVID-19) Ag IA.rapid Ql (Resp) [facility] [place] [facility] CNOVon 08-11-2018 CNOV Office Visit ([facility]) ---- MARGAUX CALDERÓN ([id number]) 2000 F Date Time Provider Department 08/11/18 8:15 PM SHARI JACKSON ([facility]) [facility] During your visit today, we recorded the following information about you: Temperature Pulse Respiration Blood pressure 98.1 degrees 76/minute 16/minute 118/72 Weight 72.1 kg Shari Jackson APRN.[facility] 08/11/2018 8:38 PM Addendum Subjective HPI Margaux Calderón is a 18 year old female who presents with a rash for the last 4 days. There is yellow drainage present. Patient first thought it was poison wilmer as a co worker had it, but never came in contact with her. She has had a staph infection of her face in the past. Denies fever or chills. No nausea or vomiting. PAST MEDICAL HISTORY Diagnosis Date - Constipation PAST SURGICAL HISTORY Procedure Laterality Date - NONE - TONSILLECTOMY 2016 ALLERGIES Bactrim [Sulfamethoxazole-T rimethoprim]; Doxycycline; Gluten MEDICATIONS ranitidine (ZANTAC) 150 mg tablet Take 1 tablet by mouth daily at bedtime. levonorgestrel (MIRENA) 20 mcg/24 hr (5 years) IUD 1 Each by INTRAUTERINE route one time only for 1 dose. cephALEXin (KEFLEX) 500 mg capsule Take 1 capsule by mouth twice daily for 7 days. mupirocin (BACTROBAN) 2 % cream Apply 1 application to affected area three times daily for 10 days. Location: left ankle and right leg fluconazole (DIFLUCAN) 150 mg tablet Take 1 tablet by mouth once daily for 1 day. FAMILY HISTORY Problem Relation Age of Onset - Hypertension Father - Heart Attack Father - other (Gi issues) Mother Social History Tobacco Use - Smoking status: Never Smoker - Smokeless tobacco: Never Used Substance Use Topics - Alcohol use: No Comment: very rarely - Drug use: No Review of Systems Constitutional: Negative for chills, fever and malaise/fatigue. HENT: Negative for congestion. Musculoskeletal: Negative for back pain, falls, joint pain, myalgias and neck pain. Skin: Positive for rash. Negative for itching. BP 118/72 Pulse 76 Temp 36.7 ?C (98.1 ?F) (Tympanic) Resp 16 Wt 72.1 kg (159 lb) BMI 26.46 kg/m? Objective Physical Exam Constitutional: She is oriented to person, place, and time and well-developed, well-nourished, and in no distress. HENT: Head: Normocephalic and atraumatic. Eyes: Conjunctivae are normal. Cardiovascular: Normal rate, regular rhythm, normal heart sounds and intact distal pulses. Exam reveals no gallop and no friction rub. No murmur heard. Pulmonary/Chest: Effort normal and breath sounds normal. Musculoskeletal: She exhibits no edema. Neurological: She is alert and oriented to person, place, and time. Gait normal. Skin: Skin is warm and dry. Rash (left medial ankle pustular and localized with purulent yellow drainage. right posterior calf sinlge papular lesions) noted. Psychiatric: Mood, memory, affect and judgment normal. ASSESSMENT/PLAN: 1. Rash - ICD9: 782.1, ICD10: R21 - allergies to Bactrim and Doxycycline - follow up here or with PCP in 3 days if no better or worse - I discussed watching for fever or red streaking in the area of the rash - CEPHALEXIN 500 MG CAPSULE - MUPIROCIN 2 % TOPICAL CREAM - WOUND CULTURE AND GRAM STAIN- will call if needed based on results All of the above discussed with the patient in detail. Patient is in agreement with the above plan. Shari Jackson APRN.[facility] Referring Provider: SELF [200] Allergies As of Date: 08/11/2018 Noted Allergy Reaction BACTRIM (SULFAMETHOXAZOLE-T RIMETH*01/08/2016 4 - Hives DOXYCYCLINE 01/08/2016 4 - Hives GLUTEN 05/11/2018 8 - GI Upset Date Reviewed: 08/11/2018 Reviewed by: Shari Gonzalez ([facility]) Renetta - Fully Assessed Reason for Visit: Rash [1087] Cmt: left ankle and right leg with drainage x 4 days Primary Visit Diagnosis:Rash [R21] Order(s):cephALEXin (KEFLEX) 500 mg capsuleTake 1 capsule by mouth twice daily for 7 days.Disp: 14 capsuleRfl: 0 mupirocin (BACTROBAN) 2 % creamApply 1 application to affected area three times daily for 10 days. Location: left ankle and right legDisp: 30 gRfl: 0 WOUND CULTURE AND GRAM STAIN [SQWCUL] Order #: [id number] fluconazole (DIFLUCAN) 150 mg tabletTake 1 tablet by mouth once daily for 1 day.Disp: 1 tabletRfl: 0 Prescriptions as of 08/11/2018 Sig: RANITIDINE 150 MG TABLET Take 1 tablet by mouth daily * LEVONORGESTREL 20 MCG/24 HOUR* 1 Each by INTRAUTERINE route * CEPHALEXIN 500 MG CAPSULE Take 1 capsule by mouth twice* MUPIROCIN 2 % TOPICAL CREAM Apply 1 application to affect* FLUCONAZOLE 150 MG TABLET Take 1 tablet by mouth once d* Problem List As Of Date 08/11/2018 Noted Resolved Irregular menstrual bleeding [N92.6] INVALID FOR* Prescriptions ordered this encounter Disp Refills Start End CEPHALEXIN 500 MG CAPSULE 14 c* 0 08/11/2018 08/18/2018 Route: ORAL Sig: Take 1 capsule by mouth twice daily for 7 days. MUPIROCIN 2 % TOPICAL CREAM 30 g 0 08/11/2018 08/21/2018 Route: TOPICAL Sig: Apply 1 application to affected area three times daily for 10 days. Location: left ankle and right leg FLUCONAZOLE 150 MG TABLET 1 ta* 0 08/11/2018 08/12/2018 Route: ORAL Sig: Take 1 tablet by mouth once daily for 1 day. Medications Discontinued During This Encounter ondansetron orally disintegrating (Z* 20 t* 1 11/17/2017 08/11/2018 Route: ORAL Sig: Take 1 tablet by mouth every 8 hours as needed for Nausea/Vomiting. Disc: Discontinued by Patient Encounter Status:Closed by RENETTA VEGA.SHARI LAFLEUR on 08/11/18 Normal [facility] PROGRESSon 08-11-2018 Protein mass conc HNO ID: [id number] Author: Shari Jackson Service: ? Author Type: Nurse Practitioner Type: Progress Notes Filed: 08/11/2018 8:38 PM Note Text: Subjective HPI Margaux Calderón is a 18 year old female who presents with a rash for the last 4 days. There is yellow drainage present. Patient first thought it was poison wilmer as a co worker had it, but never came in contact with her. She has had a staph infection of her face in the past. Denies fever or chills. No nausea or vomiting. PAST MEDICAL HISTORY Diagnosis Date - Constipation PAST SURGICAL HISTORY Procedure Laterality Date - NONE - TONSILLECTOMY HX 2017 ALLERGIES Bactrim [Sulfamethoxazole-T rimethoprim]; Doxycycline; Gluten MEDICATIONS ranitidine (ZANTAC) 150 mg tablet Take 1 tablet by mouth daily at bedtime. levonorgestrel (MIRENA) 20 mcg/24 hr (5 years) IUD 1 Each by INTRAUTERINE route one time only for 1 dose. cephALEXin (KEFLEX) 500 mg capsule Take 1 capsule by mouth twice daily for 7 days. mupirocin (BACTROBAN) 2 % cream Apply 1 application to affected area three times daily for 10 days. Location: left ankle and right leg fluconazole (DIFLUCAN) 150 mg tablet Take 1 tablet by mouth once daily for 1 day. FAMILY HISTORY Problem Relation Age of Onset - Hypertension Father - Heart Attack Father - other (Gi issues) Mother Social History Tobacco Use - Smoking status: Never Smoker - Smokeless tobacco: Never Used Substance Use Topics - Alcohol use: No Comment: very rarely - Drug use: No Review of Systems Constitutional: Negative for chills, fever and malaise/fatigue. HENT: Negative for congestion. Musculoskeletal: Negative for back pain, falls, joint pain, myalgias and neck pain. Skin: Positive for rash. Negative for itching. BP 118/72 Pulse 76 Temp 36.7 ?C (98.1 ?F) (Tympanic) Resp 16 Wt 72.1 kg (159 lb) BMI 26.46 kg/m? Objective Physical Exam Constitutional: She is oriented to person, place, and time and well-developed, well-nourished, and in no distress. HENT: Head: Normocephalic and atraumatic. Eyes: Conjunctivae are normal. Cardiovascular: Normal rate, regular rhythm, normal heart sounds and intact distal pulses. Exam reveals no gallop and no friction rub. No murmur heard. Pulmonary/Chest: Effort normal and breath sounds normal. Musculoskeletal: She exhibits no edema. Neurological: She is alert and oriented to person, place, and time. Gait normal. Skin: Skin is warm and dry. Rash (left medial ankle pustular and localized with purulent yellow drainage. right posterior calf sinlge papular lesions) noted. Psychiatric: Mood, memory, affect and judgment normal. ASSESSMENT/PLAN: 1. Rash - ICD9: 782.1, ICD10: R21 - allergies to Bactrim and Doxycycline - follow up here or with PCP in 3 days if no better or worse - I discussed watching for fever or red streaking in the area of the rash - CEPHALEXIN 500 MG CAPSULE - MUPIROCIN 2 % TOPICAL CREAM - WOUND CULTURE AND GRAM STAIN- will call if needed based on results All of the above discussed with the patient in detail. Patient is in agreement with the above plan. Shari Jackson, DIRECTOR OF OPERATIONS.DOCK CLERK [facility] Wound Culture/Stainon 2018 Wound Culture/Stain Sp. Request/Comment: - Swab Smear Result - No organisms seen No Polymorphonuclear Leukocytes Culture Result - No growth 2 days For wound culture, tissue or aspirates are superior to swab specimens. If a swab must be used, eSwab is preferred (Lucero no. [id number]). Normal [facility] Comment on above: Performed By: #### W CUL ####[facility] [place], [place] [phone] XR UPPER GI W SMALL BOWEL SE [facility] 05-26-2018 XR UPPER GI W SMALL BOWEL SERIES * * *Final Report* * * DATE OF EXAM: May 26 2018 9:32AM MDX [id number] - XR UPPER GI W SMALL BOWEL SERIES / PROCEDURE REASON: multiple diagnoses * * * * Physician Interpretation * * * * EXAMINATION: UPPER GI AND SMALL BOWEL SERIES HISTORY: Constipation, unspecified constipation type Periumbilical pain Nausea TECHNIQUE: A double-contrast upper GI series was performed utilizing effervescent granules (E-Z-Gas II - 4 grams). A small bowel series was also performed subsequently. Contrast: ORAL: EZPAQUE and E-Z-Gas Fluoroscopic Radiation Summary: Plane A, Air Kerma: 54.7 mGy Dose Area Product (DAP): 0.0 mGy*cmS2 Fluoro time: 1:30 min:sec COMPARISON: None. RESULT: Upper GI: There is no significant hiatal hernia. No convincing mass, ring, stricture, or esophagitis. No reflux was elicited despite provocative maneuvers. Esophageal motility was normal. Gastric position is normal, without mass or ulcer identified. There is a suspected small duodenal diverticulum at the level of the inferior duodenal flexure. Duodenal bulb and sweep are otherwise normal. Small Bowel: Contrast reached the colon by 30 minutes. The mucosal pattern and caliber of the small bowel are normal. The terminal ileum is thought to be mildly narrowed. - - IMPRESSION: Upper GI: SMALL DUODENAL DIVERTICULUM AT THE LEVEL THE INFERIOR DUODENAL FLEXURE Small Bowel: SUSPECTED MILD NARROWING AT THE LEVEL OF THE TERMINAL ILEUM; THE REMAINING SMALL BOWEL IS NORMAL IN CALIBER AND MUCOSAL PATTERN. Tobacco Sweeper: STEPHANIE Transcribe Date/Time: May 26 2018 9:43A Dictated by : MARLEN VAZQUEZ MD This examination was interpreted and the report reviewed and electronically signed by: MARLEN VAZQUEZ MD on May 28 2018 4:56PM EST [id number] [facility] CNCOon 05-20-2018 CNCO Letter Text Dear Margaux Calderón: How to activate your [facility] [employer] Account 1. Visit the [employer] Signup page at [email or web address] 2. Identify yourself using your one-time use activation code: [email or web address] 3. Follow the on-screen prompts to choose your own secure username and password The following information will be necessary to access your account for the first time: Information needed for sign-up: Your custom activation code used one-time only for the initial account set-up. Your date of The last 4 digits of your social security number What to do next: Fill in the requested information on the Identify Yourself Form at [email or web address] , click Next. Create your login and password, choose a [employer] ID and password that will be easy for you to use, but impossible for anyone else to guess. Pick a security question that will assist you in the event you forget your password the next time you log-on. If you have difficulty activating your account, please call our [employer] helpline at [phone] or toll free at . We hope you enjoy using [employer]! Kindest Regards, [facility] [employer] Team Normal [facility] CNOVon 05-20-2018 CNOV Office Visit ([facility]) ---- MARGAUX CALDERÓN ([id number]) 2000 F Date Time Provider Department 05/20/18 8:20 AM MOHIT PADILLA ([facility]) [facility] During your visit today, we recorded the following information about you: Pulse Blood pressure Weight Height 77/minute 101/68 70.1 kg 1.651 m Mohit Padilla RN APRN.DOCK CLERK 05/20/2018 9:22 AM Signed Margaux Calderón a 17 year old female who is a consultation requested by Flash Jacobson APRN, for an opinion regarding constipation. My final recommendations will be communicated back to the requesting provider by way of shared Medical record. The patient has not been seen previously. The patient was seen by Flash 05/11/18, leading to this consultation. That note has been reviewed and part as follows: presents to the office with complaints with intestinal complaints. Was in the office in in October, had cut out gluten and her abdominal pain improved. She states that she has episodic abdominal pain in the lower abdomen that will last for 2-3 weeks at a time. She will get random bursts of pain. Described as a crampy, occasional stabbing pain. Bowel movements will not improve her pain. She states that she will have bloating. Will go for about a week without a bowel movement at a time. She states that she will have mucus in her stools of over the past few weeks. Also had some that were green in color. She brings pictures of these stools. No blood in her stools. Does have intermittent nausea at times. No family history of Crohns disease or IBD. Does have a family history of her paternal grandfather having colon cancer at a late age. She will take an occasional Senna when she has had extended constipation. Component Latest Ref Rng AND Units 05/11/2018 Protein, Total 6.3 - 8.0 g/dL 7.1 Albumin 3.9 - 4.9 g/dL 4.8 Calcium 8.5 - 10.2 mg/dL 9.5 Bilirubin, Total 0.2 - 1.3 mg/dL 0.6 Alkaline Phosphatase 34 - 123 U/L 54 AST 13 - 35 U/L 19 Glucose 74 - 99 mg/dL 91 BUN 7 - 21 mg/dL 14 Creatinine 0.58 - 0.96 mg/dL 0.76 Sodium 136 - 144 mmol/L 138 Potassium 3.7 - 5.1 mmol/L 3.8 Chloride 97 - 105 mmol/L 101 CO2 22 - 30 mmol/L 23 Anion Gap 9 - 18 mmol/L 14 ALT 7 - 38 U/L 13 eGFR- >60 eGFR-All Other Races . >60 Presenting complaint: The patient presents today stating if I think back as far as I can, it was 7th grade, when I would eat lunch and have pain. Mid to lower abdomen. The pain in not like period cramps. The patient tells me that she cut out all but meat and vegetables, in July. Reintroduced items. The only thing that bothered her was gluten. She has been gluten free since then. The patient tells me that her mother has had similar problems and has cut out gluten. She isn't aware of any other GI issues. Since cutting out gluten her bowel routine might be regular, but the stool might vary. She tells me that she was having a lot of mucus with her stools this past couple weeks. She denies seeing any blood. The patient tells me that she had used Miralax when she was still eating gluten - didn't see any improvement. Has tried it a couple times since then. Senna if she hasn't had a bowel movement for a while. The patient tells me that she can get an episode of cramping and bloating and constipation, leading to nausea and headache. The episode can last 3 weeks. The last episode was at the beginning of the year. She tells me that she will use She tells me that she won't have much of an appetite when she is in one cycle. REVIEW OF SYSTEMS: GENERAL: No weight loss, malaise or fevers Last 10 Encounter Wt Readings: Date: Wt: 05/20/2018 70.1 kg (154 lb 9.6 oz) 03/25/2018 69.9 kg (154 lb 3.2 oz) (83 %, Z= 0.97)* 11/17/2017 67.9 kg (149 lb 9.6 oz) (80 %, Z= 0.85)* 08/05/2017 69.4 kg (153 lb) (84 %, Z= 0.98)* 06/02/2017 70.3 kg (155 lb) (85 %, Z= 1.05)* 05/26/2017 71.5 kg (157 lb 9.6 oz) (87 %, Z= 1.13)* 02/20/2016 69 kg (152 lb 3.2 oz) (86 %, Z= 1.09)* 02/19/2016 69.4 kg (153 lb) (87 %, Z= 1.11)* 02/02/2016 68.9 kg (152 lb) (86 %, Z= 1.08)* 01/08/2016 68 kg (150 lb) (85 %, Z= 1.03)* GI: The patient states that her appetite has been adequate. She does get hungry. There has been some nausea, one episode of vomiting. She denies dysphagia and denies odynophagia. There has partially been indigestion with heartburn. There has partially been regurgitation. Bowel habits have been irregular. There has rarely been diarrhea. There has been constipation. The patient denies rectal bleeding. There has not been melena. Intermittent abdominal pain that is located in the lower abdomen. TRIAL CONSULTANT: Negative for abnormal vaginal bleeding, abnormal vaginal discharge. LMP: Mirena implant. PSYCH: Positive for anxiety. Occasionally feels depressed. ENDOCRINE: No thyroid or diabetes. All other reviewed and negative other than HPI. PAST MEDICAL HISTORY Diagnosis Date - Constipation PAST SURGICAL HISTORY Procedure Laterality Date - NONE - TONSILLECTOMY HX 2017 FAMILY HISTORY Problem Relation Age of Onset - Hypertension Father - Heart Attack Father - other (Gi issues) Mother Current Outpatient Prescriptions: nitrofurantoin monohydrate and macrocrystal (MACROBID) 100 mg capsule Take 1 capsule by mouth twice daily with meals for 7 days. Disp: 14 capsule Rfl: 0 dicyclomine (BENTYL) 10 mg capsule Take 1 capsule by mouth before meals and at bedtime. Disp: 40 capsule Rfl: 2 ondansetron orally disintegrating (ZOFRAN ODT) 4 mg disintegrating tablet Take 1 tablet by mouth every 8 hours as needed for Nausea/Vomiting. Disp: 20 tablet Rfl: 1 ranitidine (ZANTAC) 150 mg tablet Take 1 tablet by mouth daily at bedtime. Disp: 30 tablet Rfl: 2 levonorgestrel (MIRENA) 20 mcg/24 hr (5 years) IUD 1 Each by INTRAUTERINE route one time only for 1 dose. Disp: 1 Each Rfl: 0 No current facility-administer ed medications for this visit. SOCIAL HISTORY: Patient is single. She has never smoked and reports her alcohol use as very rarely. She denies cannabis use. PHYSICAL EXAMINATION: Blood pressure 101/68, pulse 77, height 165.1 cm (5' 5), weight 70.1 kg (154 lb 9.6 oz). General Appearance: Well appearing, alert, in no acute distress, well-hydrated, well nourished. Skin: Skin color, texture, turgor normal, no suspicious rashes or lesions. Head: Normocephalic, no masses, lesions, tenderness or abnormalities. Eyes: Anicteric sclera. Neck: Supple, no adenopathy; thyroid symmetric, normal size. Lungs: lungs clear to auscultation. No wheezing, rhonchi, rales. Heart: RRR without murmur. Abdomen: Abdomen soft, non-tender. Bowel sounds normal. No masses, organomegaly. Extremities: No deformities, edema, skin discoloration, clubbing or cyanosis. Impression: functional bowel disorder - given onset and symptoms Plan: Continue gluten free. Labs today. UGI-SBFT for starters. Further plan based on the results. Suggested lactose free during an episode. She agrees with this plan. I have personally interviewed and examined this patient. I have reviewed the information that the MA entered for this encounter. I spent 30 minutes in the visit, with greater than 50% of the total yeno-or-kcnk time of the visit in counseling and coordination of care. Mohit Padilla RN DIRECTOR OF OPERATIONS.CIARRA Padilla RN APRN.CIARRA 05/20/2018 8:55 AM Signed We will give you the results of the blood work via [facility]. Continue gluten free. Knock out dairy when having an episode. Please follow the instructions for the test that looks at your stomach and small bowel. It will take a day or two after the test for us to get the results. Call [phone], and ask to speak to a nurse in GI, if you have any questions or concerns in the mean time. Referring Provider: FLASH JACOBSON ([facility]) [[id number]] Allergies As of Date: 05/20/2018 Noted Allergy Reaction BACTRIM (SULFAMETHOXAZOLE-T RIMETH*01/08/2016 4 - Hives DOXYCYCLINE 01/08/2016 4 - Hives GLUTEN 05/11/2018 8 - GI Upset Date Reviewed: 05/20/2018 Reviewed by: Adrianna Delarosa LPN - Fully Assessed Reason for Visit: chronic constipation, mucous in stool [Other] Primary Visit Diagnosis:Functiona l bowel disorder [K59.9] Other Visit Diagnoses:Constipat ion, unspecified constipation type [K59.00] Periumbilical pain [R10.33] Nausea [R11.0] Order(s):TSH BLD [SQTSH] Order #: [id number] FUTURE T3 BLD [SQT3] Order #: [id number] FUTURE T4 FREE/FREE THYROX [SQFT4] Order #: [id number] FUTURE XR UPPER GI W SMALL BOWEL SERIES [8761344] Order #: [id number] FUTURE Prescriptions as of 05/20/2018 Sig: ONDANSETRON 4 MG DISINTEGRATI* Take 1 tablet by mouth every * RANITIDINE 150 MG TABLET Take 1 tablet by mouth daily * LEVONORGESTREL 20 MCG/24 HR (* 1 Each by INTRAUTERINE route * NITROFURANTOIN MONOHYDRATE AND * Take 1 capsule by mouth twice* Problem List As Of Date 05/20/2018 Noted Resolved Irregular menstrual bleeding [N92.6] INVALID FOR* Other instructions from your clinician: We will give you the results of the blood work via [facility]. Continue gluten free. Knock out dairy when having an episode. Please follow the instructions for the test that looks at your stomach and small bowel. It will take a day or two after the test for us to get the results. Call [phone], and ask to speak to a nurse in GI, if you have any questions or concerns in the mean time. Medications Discontinued During This Encounter dicyclomine (BENTYL) 10 mg capsule 40 c* 2 11/17/2017 05/20/2018 Route: ORAL Sig: Take 1 capsule by mouth before meals and at bedtime. Disc: Changing Therapy/Dosage Form Encounter Status:Closed by MOHIT PADILLA DOCK CLERK on 05/20/18 Normal [facility] Free T4on 05-20-2018 T4 free mass conc 1.3 ng/dL Normal 0.9-1.7 [facility] Comment on above: Performed By: #### T SH, FT4, T3 ####[facility] [address] [place], [place] [phone] HISTORY PHYSICALon 9 HISTORY PHYSICAL HNO ID: [id number] Author: Mohit (Political Geographer) Valerie Service: (none) Author Type: Nurse Practitioner Type: HANDP Filed: 05/20/2018 9:22 AM Note Text: Margaux Calderón a 17 year old female who is a consultation requested by Flash Jacobson APRN, for an opinion regarding constipation. My final recommendations will be communicated back to the requesting provider by way of shared Medical record. The patient has not been seen previously. The patient was seen by Flash 05/11/18, leading to this consultation. That note has been reviewed and part as follows: presents to the office with complaints with intestinal complaints. Was in the office in in October, had cut out gluten and her abdominal pain improved. She states that she has episodic abdominal pain in the lower abdomen that will last for 2-3 weeks at a time. She will get random bursts of pain. Described as a crampy, occasional stabbing pain. Bowel movements will not improve her pain. She states that she will have bloating. Will go for about a week without a bowel movement at a time. She states that she will have mucus in her stools of over the past few weeks. Also had some that were green in color. She brings pictures of these stools. No blood in her stools. Does have intermittent nausea at times. No family history of Crohns disease or IBD. Does have a family history of her paternal grandfather having colon cancer at a late age. She will take an occasional Senna when she has had extended constipation. Component Latest Ref Rng AND Units 05/11/2018 Protein, Total 6.3 - 8.0 g/dL 7.1 Albumin 3.9 - 4.9 g/dL 4.8 Calcium 8.5 - 10.2 mg/dL 9.5 Bilirubin, Total 0.2 - 1.3 mg/dL 0.6 Alkaline Phosphatase 34 - 123 U/L 54 AST 13 - 35 U/L 19 Glucose 74 - 99 mg/dL 91 BUN 7 - 21 mg/dL 14 Creatinine 0.58 - 0.96 mg/dL 0.76 Sodium 136 - 144 mmol/L 138 Potassium 3.7 - 5.1 mmol/L 3.8 Chloride 97 - 105 mmol/L 101 CO2 22 - 30 mmol/L 23 Anion Gap 9 - 18 mmol/L 14 ALT 7 - 38 U/L 13 eGFR- >60 eGFR-All Other Races . >60 Presenting complaint: The patient presents today stating if I think back as far as I can, it was 7th grade, when I would eat lunch and have pain. Mid to lower abdomen. The pain in not like period cramps. The patient tells me that she cut out all but meat and vegetables, in July. Reintroduced items. The only thing that bothered her was gluten. She has been gluten free since then. The patient tells me that her mother has had similar problems and has cut out gluten. She isn't aware of any other GI issues. Since cutting out gluten her bowel routine might be regular, but the stool might vary. She tells me that she was having a lot of mucus with her stools this past couple weeks. She denies seeing any blood. The patient tells me that she had used Miralax when she was still eating gluten - didn't see any improvement. Has tried it a couple times since then. Senna if she hasn't had a bowel movement for a while. The patient tells me that she can get an episode of cramping and bloating and constipation, leading to nausea and headache. The episode can last 3 weeks. The last episode was at the beginning of the year. She tells me that she will use She tells me that she won't have much of an appetite when she is in one cycle. REVIEW OF SYSTEMS: GENERAL: No weight loss, malaise or fevers Last 10 Encounter Wt Readings: Date: Wt: 05/20/2018 70.1 kg (154 lb 9.6 oz) 03/25/2018 69.9 kg (154 lb 3.2 oz) (83 %, Z= 0.97)* 11/17/2017 67.9 kg (149 lb 9.6 oz) (80 %, Z= 0.85)* 08/05/2017 69.4 kg (153 lb) (84 %, Z= 0.98)* 06/02/2017 70.3 kg (155 lb) (85 %, Z= 1.05)* 05/26/2017 71.5 kg (157 lb 9.6 oz) (87 %, Z= 1.13)* 02/20/2016 69 kg (152 lb 3.2 oz) (86 %, Z= 1.09)* 02/19/2016 69.4 kg (153 lb) (87 %, Z= 1.11)* 02/02/2016 68.9 kg (152 lb) (86 %, Z= 1.08)* 01/08/2016 68 kg (150 lb) (85 %, Z= 1.03)* GI: The patient states that her appetite has been adequate. She does get hungry. There has been some nausea, one episode of vomiting. She denies dysphagia and denies odynophagia. There has partially been indigestion with heartburn. There has partially been regurgitation. Bowel habits have been irregular. There has rarely been diarrhea. There has been constipation. The patient denies rectal bleeding. There has not been melena. Intermittent abdominal pain that is located in the lower abdomen. TRIAL CONSULTANT: Negative for abnormal vaginal bleeding, abnormal vaginal discharge. LMP: Mirena implant. PSYCH: Positive for anxiety. Occasionally feels depressed. ENDOCRINE: No thyroid or diabetes. All other reviewed and negative other than HPI. PAST MEDICAL HISTORY Diagnosis Date - Constipation PAST SURGICAL HISTORY Procedure Laterality Date - NONE - TONSILLECTOMY HX 2017 FAMILY HISTORY Problem Relation Age of Onset - Hypertension Father - Heart Attack Father - other (Gi issues) Mother Current Outpatient Prescriptions: nitrofurantoin monohydrate and macrocrystal (MACROBID) 100 mg capsule Take 1 capsule by mouth twice daily with meals for 7 days. Disp: 14 capsule Rfl: 0 dicyclomine (BENTYL) 10 mg capsule Take 1 capsule by mouth before meals and at bedtime. Disp: 40 capsule Rfl: 2 ondansetron orally disintegrating (ZOFRAN ODT) 4 mg disintegrating tablet Take 1 tablet by mouth every 8 hours as needed for Nausea/Vomiting. Disp: 20 tablet Rfl: 1 ranitidine (ZANTAC) 150 mg tablet Take 1 tablet by mouth daily at bedtime. Disp: 30 tablet Rfl: 2 levonorgestrel (MIRENA) 20 mcg/24 hr (5 years) IUD 1 Each by INTRAUTERINE route one time only for 1 dose. Disp: 1 Each Rfl: 0 No current facility-administer ed medications for this visit. SOCIAL HISTORY: Patient is single. She has never smoked and reports her alcohol use as very rarely. She denies cannabis use. PHYSICAL EXAMINATION: Blood pressure 101/68, pulse 77, height 165.1 cm (5' 5), weight 70.1 kg (154 lb 9.6 oz). General Appearance: Well appearing, alert, in no acute distress, well-hydrated, well nourished. Skin: Skin color, texture, turgor normal, no suspicious rashes or lesions. Head: Normocephalic, no masses, lesions, tenderness or abnormalities. Eyes: Anicteric sclera. Neck: Supple, no adenopathy; thyroid symmetric, normal size. Lungs: lungs clear to auscultation. No wheezing, rhonchi, rales. Heart: RRR without murmur. Abdomen: Abdomen soft, non-tender. Bowel sounds normal. No masses, organomegaly. Extremities: No deformities, edema, skin discoloration, clubbing or cyanosis. Impression: functional bowel disorder - given onset and symptoms Plan: Continue gluten free. Labs today. UGI-SBFT for starters. Further plan based on the results. Suggested lactose free during an episode. She agrees with this plan. I have personally interviewed and examined this patient. I have reviewed the information that the MA entered for this encounter. I spent 30 minutes in the visit, with greater than 50% of the total [id number] time of the visit in counseling and coordination of care. Mohit Padilla RN DIRECTOR OF OPERATIONS.DOCK CLERK Normal [facility] T3on 05-20-2018 T3 127 ng/dL Normal 79-165 [facility] Comment on above: Performed By: #### T SH, FT4, T3 ####[facility] [place], [place] [phone] TSHon 05-20-2018 Thyrotropin Qn 2.010 uU/mL Normal 0.510-4.300 Arnulfo palacio [facility] Comment on above: Result Comment: If t he patient is , TSH reference range varies by gestational period: First Trimester 0.100-2.500 uU/mL Second Trimester 0.200-3.000 uU/mL Third Trimester 0.300-3.000 uU/mL References: 1. Call L, Adam M, Jad EK, et al. Management of Thyroid Dysfunction during and : An Endocrine Society Clinical Practice Guideline. J Clin Endocrinol Metab, 2012:97:3470-6564. 2. Allen QUINTANA. Overview of thyroid disease in . UpToDate. 2016. Accessed on October 06, 2015. Performed By: #### T SH, FT4, T3 ####[facility] [address] [place], [place] [phone] CNOVon 05-11-2018 CNOV Office Visit (FAMPWS) ---- MARGAUX CALDERÓN ([id number]) 2000 F Date Time Provider Department 05/11/18 7:40 AM FLASH JACOBSON ([facility]) FAMPWS During your visit today, we recorded the following information about you: Pulse Blood pressure 78/minute 118/76 Flash Jacobson APRN.CNP 05/11/2018 8:12 AM Signed Chief Complaint Patient presents with: Intestinal Disorder HPI Margaux Santoyo Mago is a 17 year old female who presents here today for Above Complaints. Patient presents to the office with complaints with intestinal complaints. Was in the office in in October, had cut out gluten and her abdominal pain improved. She states that she has episodic abdominal pain in the lower abdomen that will last for 2-3 weeks at a time. She will get random bursts of pain. Described as a crampy, occasional stabbing pain. Bowel movements will not improve her pain. She states that she will have bloating. Will go for about a week without a bowel movement at a time. She states that she will have mucus in her stools of over the past few weeks. Also had some that were green in color. She brings pictures of these stools. No blood in her stools. Does have intermittent nausea at times. No family history of Crohns disease or IBD. Does have a family history of her paternal grandfather having colon cancer at a late age. She will take an occasional Senna when she has had extended constipation. Also having UTI symptoms at this time. Symptoms present since Friday. Burning, frequency, urgency is present. No hematuria. Has been using Azo at home without relief. Past medical history, appointments, medications, allergies reviewed. Previous Medical History PAST MEDICAL HISTORY Diagnosis Date - Constipation Previous Surgical History PAST SURGICAL HISTORY Procedure Laterality Date - NONE - TONSILLECTOMY HX 2016 Family History FAMILY HISTORY Problem Relation Age of Onset - Hypertension Father - Heart Attack Father - other (Gi issues) Mother Patient Allergies ALLERGIES Allergen Reactions - Bactrim [Sulfametho* Hives - Doxycycline Hives - Gluten GI Upset Current Medications Current Outpatient Prescriptions on File Prior to Visit: dicyclomine (BENTYL) 10 mg capsule Take 1 capsule by mouth before meals and at bedtime. ondansetron orally disintegrating (ZOFRAN ODT) 4 mg disintegrating tablet Take 1 tablet by mouth every 8 hours as needed for Nausea/Vomiting. ranitidine (ZANTAC) 150 mg tablet Take 1 tablet by mouth daily at bedtime. levonorgestrel (MIRENA) 20 mcg/24 hr (5 years) IUD 1 Each by INTRAUTERINE route one time only for 1 dose. No current facility-administer ed medications on file prior to visit. Social History Social History Marital status: Single Spouse name: Years of education: Number of children: Social History Main Topics Smoking status: Never Smoker Smokeless tobacco: Never Used Alcohol use: No Drug use: No REVIEW OF SYSTEMS: as above ? Reviewed relevant PMHx, PSHx, Social Hx, current medications and allergies. EXAM: BP 118/76 (BP Site: Left Arm) Pulse 78 SpO2 99% General Appearance: Well appearing, alert, in no acute distress, well-hydrated, well nourished.. Lungs: lungs clear to auscultation. No wheezing, rhonchi, rales. Heart: RRR without murmur, gallop, or rubs. No ectopy. Abdomen: Normal abdominal exam, Abdomen soft, non-tender. Bowel sounds normal. No masses, organomegaly. Extremities: No deformities, edema. Health Maintenance List HPV VACCINE(1 - Female 3-dose series) due on 2009 DTAP,TDAP,TD(1 - Tdap) due on 2017 INFLUENZA(1) due on 12/20/2017 GC (GONORRHEA) SCREENING (18-24) due on 03/25/2019 CHLAMYDIA SCREENING (18-24) due on 03/25/2019 MENINGOCOCCAL CONJUGATE Completed Data reviewed Component Latest Ref Rng AND Units 06/02/2017 03/25/2018 03/25/2018 03/25/2018 03/25/2018 03/25/2018 03/25/2018 11:56 AM 10:59 PM 10:59 PM 10:59 PM 10:59 PM 10:59 PM Specimen Request Swab Smear Result BACTERIAL VAGINOSIS RESULT: (A) . . . No Yeast observed Rare . . . Rare (A) . . . Many . . . GC/Chlam Amp Source Cervix GC Amplification Negative for Neisseria gonorrhoeae by amplification. Chlamydia Amplification Negative for Chlamydia trachomatis by amplification. , Urine neg - pos neg Quality Check yes/no Yes T vag Amp Source Cervix Trich vag Amplification Negative for Trichomonas vaginalis by amplification ASSESSMENT/PLAN: 1. Chronic constipation - ICD9: 564.00, ICD10: K59.09 (primary diagnosis) - IBS like symptoms, but given ongoing mucus in stools, consult gastro for possible scope if found necessary. - CONSULT TO GASTROENTEROLOGY - COMP METABOLIC PANEL 2. Mucus in stool - ICD9: 792.1, ICD10: R19.5 - iunclear - CONSULT TO GASTROENTEROLOGY 3. UTI symptoms - ICD9: 788.99, ICD10: R39.9 UA positive for leuks, send culture - UA DIP B/O - URINE CULTURE - NITROFURANTOIN MONOHYDRATE AND MACROCRYSTAL 100 MG ORAL CAP F/u as needed Flash Jacobson APRN.CIARRA Jacobson APRN.CIARRA 05/11/2018 8:09 AM Signed __ CONSTIPATION----Justin ping your bowels moving smoothly What is constipation? Constipation is when you have trouble having bowel movements. Your stools may be very hard, making them so difficult to pass that you have to strain. Or you may feel like you still need to have a bowel movement even after you've had one. How often should I have a bowel movement? Not everyone has bowel movements once a day. Don't believe ads that say you must have a daily bowel movement to be regular. A normal range is generally 3 times a day to 3 times a week. You may be getting constipated if you begin to have bowel movements much less often than you usually do. What causes constipation? As the food you eat passes through your digestive tract, your body takes nutrients and water from the food. This process creates a stool, which is moved through your intestines with muscle contractions (squeezing motions). A number of things can affect this process. Being and taking vitamins are frequently associated. Other causes include not drinking enough fluids, not being active enough, not eating enough fiber, taking certain drugs, not going to the bathroom when you have the urge to have a bowel movement and regularly using laxatives. Any of these things can cause the stools to move more slowly through your intestines, leading to constipation. How is constipation treated? The main thing in treating constipation is to be sure you're eating enough fiber and drinking enough fluids. This helps your stools move through your intestines by increasing the bulk of your stools and making your stools softer. Increasing how much you exercise will also help. Eat plenty of fiber (see below). Two to 4 servings of fruits and 3 to 5 servings of vegetables a day is ideal. Add extra fiber to your diet by eating cereals that contain bran or by adding bran as a topping on your fruit or cereal. If you are adding fiber to your diet, start slowly and gradually increase the amount. This will help reduce gas and bloating. Make sure to drink plenty of water too. Foods rich in fiber: Unprocessed wheat bran Unrefined breakfast cereals (FiberOne) Whole wheat and rye flours Grainy breads, such as whole wheat, rye or pumpernickel Fresh fruits Dried fruits, such as prunes, apricots and figs Vegetables Legumes, such as chickpeas, baked beans and cruz beans What else can I use? One option is to stop taking vitamins and take another preparation, such as children's chewable vitamins. Wait a few days to see results. On the shelf at the drug store are several basic kinds of help for constipation. 'Stool softeners' and 'bulk-forming' agents are safe in . 'Laxatives', 'enemas', and 'suppositories' are better avoided. FIRST CHOICE: Bulk-forming laxatives work naturally to add bulk and water to your stools so that they can pass more easily through your intestines. Bulk-forming laxatives can be used every day. They include oat bran, psyllium (one brand: Metamucil), polycarbophil (one brand: FiberCon) and methylcellulose (one brand: Citrucel). Most people like Metamucil CAPSULES best of these three. You must use bulk-forming laxatives daily for them to work. Follow the directions on the label. Start slowly and drink plenty of fluids. Gradually increase how much you use every 3 to 5 days (as you get used to it) until you get the effect you want. Start with one. Six is the maximum. You can help bulk-forming laxatives taste better by mixing them with fruit juice. Be careful of the cookie form. They have lots of calories! SECOND CHOICE: Colace, or its generic equivalent, is essentially soap which coats the stool and makes it easier to pass. You may take one or two of the 100mg capsules (distinctive because of their bright red, clear oily appearance) a day. This ingredient is also found in some vitamin preparations. THIRD CHOICE Glycerin suppositories can be inserted in the rectum to ease a hard bowel movement out. These are kept in back by the pharmacist in a refrigerator (You have to ask), even though they do not require a prescription. FOURTH CHOICE: If none of the above are doing the trick, one dose of Milk of Magnesia, or one Dulcolax suppository may work. However, laxatives should usually be avoided. These include brand names like Correct-all and Ex-Lax. Dulcolax, Milk of Magnesia and Magnesium Citrate are also considered harsh in and theoretically at least, might also cause the baby to have a bowel movement of its own if the is far advanced enough, or send you into premature labor because of all the spasms going on in your abdomen. Mineral oil and Franklin oil should also be avoided. Should I try enemas? Enemas aren't usually needed, but would theoretically be okay for a one time use. What if I've been using enemas or laxatives for a long time? You may have to retrain your body to go without laxatives or enemas if you've been using them for a long time. This means eating plenty of fiber and using a bulk-forming laxative, drinking plenty of water, exercising and learning to give yourself time to have a bowel movement. If you've used laxatives and enemas for a long time, your family doctor may suggest that you wean yourself off of them slowly to give your system a chance to return to normal. Be patient?it may take many months for your bowels to get back to normal if you've been using laxatives or enemas regularly. Talk with your family doctor about any concerns you have. Referring Provider: SELF [[id number]] Allergies As of Date: 05/11/2018 Noted Allergy Reaction BACTRIM (SULFAMETHOXAZOLE-T RIMETH*01/08/2016 4 - Hives DOXYCYCLINE 01/08/2016 4 - Hives GLUTEN 05/11/2018 8 - GI Upset Date Reviewed: 05/11/2018 Reviewed by: Flash ([facility]) Indira - Fully Assessed Reason for Visit: Intestinal Disorder [422] Primary Visit Diagnosis:Chronic constipation [K59.09] Other Visit Diagnoses:Mucus in stool [R19.5] UTI symptoms [R39.9] Order(s):CONSULT TO GASTROENTEROLOGY [3546] Order #: [id number]: 1 UA DIP B/O [7614148] Order #: [id number] COMP METABOLIC PANEL [SQCMP] Order #: [id number] FUTURE URINE CULTURE [SQURCUL] Order #: [id number] nitrofurantoin monohydrate and macrocrystal (MACROBID) 100 mg capsuleTake 1 capsule by mouth twice daily with meals for 7 days.Disp: 14 capsuleRfl: 0 Prescriptions as of 05/11/2018 Sig: DICYCLOMINE 10 MG CAPSULE Take 1 capsule by mouth befor* ONDANSETRON 4 MG DISINTEGRATI* Take 1 tablet by mouth every * RANITIDINE 150 MG TABLET Take 1 tablet by mouth daily * LEVONORGESTREL 20 MCG/24 HR (* 1 Each by INTRAUTERINE route * NITROFURANTOIN MONOHYDRATE AND * Take 1 capsule by mouth twice* Problem List As Of Date 05/11/2018 Noted Resolved Irregular menstrual bleeding [N92.6] INVALID FOR* Other instructions from your clinician: __ CONSTIPATION----Justin ping your bowels moving smoothly What is constipation? Constipation is when you have trouble having bowel movements. Your stools may be very hard, making them so difficult to pass that you have to strain. Or you may feel like you still need to have a bowel movement even after you've had one. How often should I have a bowel movement? Not everyone has bowel movements once a day. Don't believe ads that say you must have a daily bowel movement to be regular. A normal range is generally 3 times a day to 3 times a week. You may be getting constipated if you begin to have bowel movements much less often than you usually do. What causes constipation? As the food you eat passes through your digestive tract, your body takes nutrients and water from the food. This process creates a stool, which is moved through your intestines with muscle contractions (squeezing motions). A number of things can affect this process. Being and taking vitamins are frequently associated. Other causes include not drinking enough fluids, not being active enough, not eating enough fiber, taking certain drugs, not going to the bathroom when you have the urge to have a bowel movement and regularly using laxatives. Any of these things can cause the stools to move more slowly through your intestines, leading to constipation. How is constipation treated? The main thing in treating constipation is to be sure you're eating enough fiber and drinking enough fluids. This helps your stools move through your intestines by increasing the bulk of your stools and making your stools softer. Increasing how much you exercise will also help. Eat plenty of fiber (see below). Two to 4 servings of fruits and 3 to 5 servings of vegetables a day is ideal. Add extra fiber to your diet by eating cereals that contain bran or by adding bran as a topping on your fruit or cereal. If you are adding fiber to your diet, start slowly and gradually increase the amount. This will help reduce gas and bloating. Make sure to drink plenty of water too. Foods rich in fiber: Unprocessed wheat bran Unrefined breakfast cereals (FiberOne) Whole wheat and rye flours Grainy breads, such as whole wheat, rye or pumpernickel Fresh fruits Dried fruits, such as prunes, apricots and figs Vegetables Legumes, such as chickpeas, baked beans and cruz beans What else can I use? One option is to stop taking vitamins and take another preparation, such as children's chewable vitamins. Wait a few days to see results. On the shelf at the drug store are several basic kinds of help for constipation. 'Stool softeners' and 'bulk-forming' agents are safe in . 'Laxatives', 'enemas', and 'suppositories' are better avoided. FIRST CHOICE: Bulk-forming laxatives work naturally to add bulk and water to your stools so that they can pass more easily through your intestines. Bulk-forming laxatives can be used every day. They include oat bran, psyllium (one brand: Metamucil), polycarbophil (one brand: FiberCon) and methylcellulose (one brand: Citrucel). Most people like Metamucil CAPSULES best of these three. You must use bulk-forming laxatives daily for them to work. Follow the directions on the label. Start slowly and drink plenty of fluids. Gradually increase how much you use every 3 to 5 days (as you get used to it) until you get the effect you want. Start with one. Six is the maximum. You can help bulk-forming laxatives taste better by mixing them with fruit juice. Be careful of the cookie form. They have lots of calories! SECOND CHOICE: Colace, or its generic equivalent, is essentially soap which coats the stool and makes it easier to pass. You may take one or two of the 100mg capsules (distinctive because of their bright red, clear oily appearance) a day. This ingredient is also found in some vitamin preparations. THIRD CHOICE Glycerin suppositories can be inserted in the rectum to ease a hard bowel movement out. These are kept in back by the pharmacist in a refrigerator (You have to ask), even though they do not require a prescription. FOURTH CHOICE: If none of the above are doing the trick, one dose of Milk of Magnesia, or one Dulcolax suppository may work. However, laxatives should usually be avoided. These include brand names like Correct-all and Ex-Lax. Dulcolax, Milk of Magnesia and Magnesium Citrate are also considered harsh in and theoretically at least, might also cause the baby to have a bowel movement of its own if the is far advanced enough, or send you into premature labor because of all the spasms going on in your abdomen. Mineral oil and Franklin oil should also be avoided. Should I try enemas? Enemas aren't usually needed, but would theoretically be okay for a one time use. What if I've been using enemas or laxatives for a long time? You may have to retrain your body to go without laxatives or enemas if you've been using them for a long time. This means eating plenty of fiber and using a bulk-forming laxative, drinking plenty of water, exercising and learning to give yourself time to have a bowel movement. If you've used laxatives and enemas for a long time, your family doctor may suggest that you wean yourself off of them slowly to give your system a chance to return to normal. Be patient?it may take many months for your bowels to get back to normal if you've been using laxatives or enemas regularly. Talk with your family doctor about any concerns you have. Prescriptions ordered this encounter Disp Refills Start End NITROFURANTOIN MONOHYDRATE AND MACROCR* 14 c* 0 05/11/2018 05/18/2018 Route: ORAL Sig: Take 1 capsule by mouth twice daily with meals for 7 days. Disposition: Return if symptoms worsen or fail to improve. Follow-up and Disposition History Recorded Encounter Status:Closed by FLASH JACOBSON CNP on 05/11/18 Normal [facility] Comp Metabolic Panelon 05-11 Albumin mass conc 4.8 g/dL Normal 3.9-4.9 [facility] Comment on above: Performed By: #### C MP ####[place] [address] [place], [place] [phone] ALP enzyme act/vol 54 U/L Normal 34-123 [facility] Comment on above: Performed By: #### C MP ####[place] [address] [address] [place], [place] [phone] ALT enzyme act/vol 13 U/L Normal 7-38 [facility] Comment on above: Performed By: #### C MP ####[place] [address] [address] [place], [place] [phone] Anion gap molar conc 14 mmol/L Normal 9-18 [facility] Comment on above: Performed By: #### C MP ####[place] [address] [address] [place], [place] [phone] AST enzyme act/vol 19 U/L Normal 13-35 [facility] Comment on above: Performed By: #### C MP ####[place] [address] [address], [place] [phone] Bilirubin mass conc 0.6 mg/dL Normal 0.2-1.3 [facility] Comment on above: Performed By: #### C MP ####[place] [address] [address] [place], [place] [phone] Calcium mass conc 9.5 mg/dL Normal 8.5-10.2 [facility] Comment on above: Performed By: #### C MP ####[place] [address] [place], [place] [phone] Chloride molar conc 101 mmol/L Normal 97-105 [facility] Comment on above: Performed By: #### C MP ####[place] [address] [address], [place] [phone] CO2 molar conc 23 mmol/L Normal 22-30 [facility] Comment on above: Performed By: #### C MP ####[facility] [place], [place] [phone] Creatinine mass conc 0.76 mg/dL Normal 0.58-0.96 [facility] Comment on above: Performed By: #### C MP ####[address] [phone] eGFR- Amer. >60 Normal [facility] Comment on above: Performed By: #### C MP ####[address] [phone] GFR/1.73 sq M predicted among non-blacks MDRD vol rate/area (S/P/Bld) mL/min/{1.73_m2} Normal [facility] Comment on above: Result Comment: eGFR (Estimated GFR) Units of measure: mL/min/1.73 meters squared eGFR is derived from the reexpressed MDRD Study equation using the following parameters: serum creatinine, age, gender and race. The creatinine assay has been calibrated to be traceable to IDMS. An eGFR <60 mL/min/1.73m2 for >3 months is consistent with chronic kidney disease. Refer to KDOQI guidelines for clinical interpretation. In patients with unstable renal function, e.g. those with acute kidney injury, the eGFR may not accurately reflect actual GFR. Performed By: #### C MP ####[place] [id number] [place], [place] [phone] Glucose mass conc 91 mg/dL Normal 74-99 [facility] Comment on above: Result Comment: The [place] [employer] (ADA) provides guidance for cutoff values for fasting glucose and random glucose. The ADA defines fasting as no caloric intake for at least 8 hours. Fasting plasma glucose results between 100 to 125 mg/dL indicate increased risk for diabetes (prediabetes). Fasting plasma glucose results greater than or equal to 126 mg/dL meet the criteria for diagnosis of diabetes. In the absence of unequivocal hyperglycemia, results should be confirmed by repeat testing. In a patient with classic symptoms of hyperglycemia or hyperglycemic crisis, random plasma glucose results greater than or equal to 200 mg/dL meet the criteria for diagnosis of diabetes. Reference: Standards of Medical Care in Diabetes 2016, [place] [employer]. Diabetes Care. 2016.39(Suppl 1). Performed By: #### C MP ####[address] [phone] Potassium molar conc 3.8 mmol/L Normal 3.7-5.1 [facility] Comment on above: Performed By: #### C MP ####[address] [phone] Protein mass conc 7.1 g/dL Normal 6.3-8.0 [facility] Comment on above: Performed By: #### C MP ####[address] [phone] Sodium molar conc 138 mmol/L Normal 136-144 [facility] Comment on above: Performed By: #### C MP ####[address] [phone] Urea nitrogen mass conc 14 mg/dL Normal 7-21 [facility] Comment on above: Performed By: #### C MP ####[address] [phone] PROGRESSon 05-11-2018 Protein mass conc HNO ID: [id number] Author: Flash (Josh Jacobson Service: (none) Author Type: Nurse Practitioner Type: Progress Notes Filed: 05/11/2018 8:12 AM Note Text: Chief Complaint Patient presents with: Intestinal Disorder ALICE Calderón is a 17 year old female who presents here today for Above Complaints. Patient presents to the office with complaints with intestinal complaints. Was in the office in in October, had cut out gluten and her abdominal pain improved. She states that she has episodic abdominal pain in the lower abdomen that will last for 2-3 weeks at a time. She will get random bursts of pain. Described as a crampy, occasional stabbing pain. Bowel movements will not improve her pain. She states that she will have bloating. Will go for about a week without a bowel movement at a time. She states that she will have mucus in her stools of over the past few weeks. Also had some that were green in color. She brings pictures of these stools. No blood in her stools. Does have intermittent nausea at times. No family history of Crohns disease or IBD. Does have a family history of her paternal grandfather having colon cancer at a late age. She will take an occasional Senna when she has had extended constipation. Also having UTI symptoms at this time. Symptoms present since Friday. Burning, frequency, urgency is present. No hematuria. Has been using Azo at home without relief. Past medical history, appointments, medications, allergies reviewed. Previous Medical History PAST MEDICAL HISTORY Diagnosis Date - Constipation Previous Surgical History PAST SURGICAL HISTORY Procedure Laterality Date - NONE - TONSILLECTOMY HX 2016 Family History FAMILY HISTORY Problem Relation Age of Onset - Hypertension Father - Heart Attack Father - other (Gi issues) Mother Patient Allergies ALLERGIES Allergen Reactions - Bactrim [Sulfametho* Hives - Doxycycline Hives - Gluten GI Upset Current Medications Current Outpatient Prescriptions on File Prior to Visit: dicyclomine (BENTYL) 10 mg capsule Take 1 capsule by mouth before meals and at bedtime. ondansetron orally disintegrating (ZOFRAN ODT) 4 mg disintegrating tablet Take 1 tablet by mouth every 8 hours as needed for Nausea/Vomiting. ranitidine (ZANTAC) 150 mg tablet Take 1 tablet by mouth daily at bedtime. levonorgestrel (MIRENA) 20 mcg/24 hr (5 years) IUD 1 Each by INTRAUTERINE route one time only for 1 dose. No current facility-administer ed medications on file prior to visit. Social History Social History Marital status: Single Spouse name: Years of education: Number of children: Social History Main Topics Smoking status: Never Smoker Smokeless tobacco: Never Used Alcohol use: No Drug use: No REVIEW OF SYSTEMS: as above ? Reviewed relevant PMHx, PSHx, Social Hx, current medications and allergies. EXAM: BP 118/76 (BP Site: Left Arm) Pulse 78 SpO2 99% General Appearance: Well appearing, alert, in no acute distress, well-hydrated, well nourished.. Lungs: lungs clear to auscultation. No wheezing, rhonchi, rales. Heart: RRR without murmur, gallop, or rubs. No ectopy. Abdomen: Normal abdominal exam, Abdomen soft, non-tender. Bowel sounds normal. No masses, organomegaly. Extremities: No deformities, edema. Health Maintenance List HPV VACCINE(1 - Female 3-dose series) due on 2009 DTAP,TDAP,TD(1 - Tdap) due on 2017 INFLUENZA(1) due on 12/20/2017 GC (GONORRHEA) SCREENING (18-24) due on 03/25/2019 CHLAMYDIA SCREENING (18-24) due on 03/25/2019 MENINGOCOCCAL CONJUGATE Completed Data reviewed Component Latest Ref Rng AND Units 06/02/2017 03/25/2018 03/25/2018 03/25/2018 03/25/2018 03/25/2018 03/25/2018 11:56 AM 10:59 PM 10:59 PM 10:59 PM 10:59 PM 10:59 PM Specimen Request Swab Smear Result BACTERIAL VAGINOSIS RESULT: (A) . . . No Yeast observed Rare . . . Rare (A) . . . Many . . . GC/Chlam Amp Source Cervix GC Amplification Negative for Neisseria gonorrhoeae by amplification. Chlamydia Amplification Negative for Chlamydia trachomatis by amplification. , Urine neg - pos neg Quality Check yes/no Yes T vag Amp Source Cervix Trich vag Amplification Negative for Trichomonas vaginalis by amplification ASSESSMENT/PLAN: 1. Chronic constipation - ICD9: 564.00, ICD10: K59.09 (primary diagnosis) - IBS like symptoms, but given ongoing mucus in stools, consult gastro for possible scope if found necessary. - CONSULT TO GASTROENTEROLOGY - COMP METABOLIC PANEL 2. Mucus in stool - ICD9: 792.1, ICD10: R19.5 - iunclear - CONSULT TO GASTROENTEROLOGY 3. UTI symptoms - ICD9: 788.99, ICD10: R39.9 UA positive for leuks, send culture - UA DIP B/O - URINE CULTURE - NITROFURANTOIN MONOHYDRATE AND MACROCRYSTAL 100 MG ORAL CAP F/u as needed Flash Jacobson APRN.DOCK CLERK Normal [facility] Urine Cultureon 05-11-2018 Bacteria identified Cx Nom (U) Sp. Request/Comment: - Specimen received in preservative Culture Result - <10,000 CFU/ml Normal urogenital swathi Normal [facility] Comment on above: Performed By: #### U RCUL ####[facility] [address] [place], [place] [phone] Bact/Cand Vag Grm Ston 03-26 INR Coag RelTime (Bld) Sp. Request/Comment: - Swab Smear Result - BACTERIAL VAGINOSIS RESULT: Stain results consistent with bacterial vaginosis. --> ABNORMAL ALERT No Yeast observed Rare Polymorphonuclear leukocytes Rare --> ABNORMAL ALERT Clue cells present --> ABNORMAL ALERT Many Epithelial cells Critically abnormal [facility] Comment on above: Performed By: #### B VCNSM #### [facility] [address] [place], [place] [address] CNOVon 03-25-2018 CNOV Office Visit (WOOB) ---- MARGAUX CALDERÓN ([id number]) 2000 F Date Time Provider Department 03/25/18 11:30 AM CATALINA WOODY (CIARRA) WOOB During your visit today, we recorded the following information about you: Blood pressure Weight 98/60 69.9 kg Catalina Woody APRN.CNP 03/25/2018 12:18 PM Signed Margaux Calderón is a 17 year old female who presents for vaginal burning for 3 week(s). Vaginal discharge: none. Itching: Some Dyspareunia: YES, burning sensation Fever/chills: No Abdominal pain: No Bladder: Negative for dysuria or frequency Bowel: No blood in stool, pain with BM, tarry stool, persistent diarrhea or constipation Any new sexual partners or concern for STD exposure: No Any history of STDs: None Does your partner have any new complaints: No Are you currently taking any medications to treat vaginitis: Yes, monistat the week of thanksgiving Do you use feminine sprays, douches or deodorants: No Menstrual cycle: no menses - Mirena IUD Contraception: IUD Past medical, surgical, social history, medications and allergies reviewed and updated. OBJECTIVE: Wt 154 lb 3.2 oz (69.9kg) GENERAL: Well developed, well nourished in no apparent distress PELVIC: external genitalia normal, normal Bartholin's glands, urethra, Bartolo's glands, no vulvar lesions, no cervical lesions, good vaginal support, physiologic discharge present, normal appearing perineal body and perianal region, well estrogenized, IUD string visualized BIMANUAL: uterus normal size, shape and consistency, no adnexal masses, non-tender and no cervical motion tenderness. RECTOVAGINAL: deferred. ASSESSMENT/PLAN: -BVC and T vaginalis sent STD screening: Accepted STD check for Gonorrhea and Chlamydia. Any new medications given to the patient have been explained as to directions, reasons for prescribing and side effects. Perineal hygeine and safe sex were discussed with the patient. -will call with results. Catalina Woody APRN.DOCK CLERK Referring Provider: SELF [[id number]] Allergies As of Date: 03/25/2018 Noted Allergy Reaction BACTRIM (SULFAMETHOXAZOLE-T RIMETH*01/08/2016 4 - Hives DOXYCYCLINE 01/08/2016 4 - Hives Date Reviewed: 03/25/2018 Reviewed by: Maria Dangelo LPN - Fully Assessed Reason for Visit: vaginal discomfort [Other] Cmt: burning with intercourse Primary Visit Diagnosis:Screening for STDs (sexually transmitted diseases) [Z11.3] Other Visit Diagnosis:Vaginal irritation [N89.8] Order(s):GC/CHLAMYD IA DNA DET [SQGCCAMP] Order #: [id number] BACT/GRETA VAG GRAM STAIN [SQBVCNSM] Order #: [id number] FUTURE T VAGINALIS AMPLIFICATION [SQTRVAMP] Order #: [id number] FUTURE Prescriptions as of 03/25/2018 Sig: DICYCLOMINE 10 MG CAPSULE Take 1 capsule by mouth befor* ONDANSETRON 4 MG DISINTEGRATI* Take 1 tablet by mouth every * RANITIDINE 150 MG TABLET Take 1 tablet by mouth daily * LEVONORGESTREL 20 MCG/24 HR (* 1 Each by INTRAUTERINE route * Problem List As Of Date 03/25/2018 Noted Resolved Irregular menstrual bleeding [N92.6] INVALID FOR* Encounter Status:Closed by CATALINA WOODY on 03/25/18 Normal [facility] GC/Chlamydia Amplifon 2017 Chlamydia Amplif Negative Normal [facility] Comment on above: Performed By: #### G CCT #### [facility] [address] [place] [address] GC Amplification Negative Normal [facility] Comment on above: Performed By: #### G CCT #### [facility] [address] [place] [address] GC/Chlam Amp Source Cervix Normal [facility] Comment on above: Performed By: #### G CCT #### [facility] [address] [place] [address] PROGRESSon 03-25-2018 Protein mass conc HNO ID: [id number] Author: Catalina (Strip Picker) Annalise Service: (none) Author Type: Nurse Practitioner Type: Progress Notes Filed: 03/25/2018 12:18 PM Note Text: Margaux Calderón is a 17 year old female who presents for vaginal burning for 3 week(s). Vaginal discharge: none. Itching: Some Dyspareunia: YES, burning sensation Fever/chills: No Abdominal pain: No Bladder: Negative for dysuria or frequency Bowel: No blood in stool, pain with BM, tarry stool, persistent diarrhea or constipation Any new sexual partners or concern for STD exposure: No Any history of STDs: None Does your partner have any new complaints: No Are you currently taking any medications to treat vaginitis: Yes, monistat the week of Do you use feminine sprays, douches or deodorants: No Menstrual cycle: no menses - Mirena IUD Contraception: IUD Past medical, surgical, social history, medications and allergies reviewed and updated. OBJECTIVE: Wt 154 lb 3.2 oz (69.9kg) GENERAL: Well developed, well nourished in no apparent distress PELVIC: external genitalia normal, normal Bartholin's glands, urethra, Bartolo's glands, no vulvar lesions, no cervical lesions, good vaginal support, physiologic discharge present, normal appearing perineal body and perianal region, well estrogenized, IUD string visualized BIMANUAL: uterus normal size, shape and consistency, no adnexal masses, non-tender and no cervical motion tenderness. RECTOVAGINAL: deferred. ASSESSMENT/PLAN: -BVC and T vaginalis sent STD screening: Accepted STD check for Gonorrhea and Chlamydia. Any new medications given to the patient have been explained as to directions, reasons for prescribing and side effects. Perineal hygeine and safe sex were discussed with the patient. -will call with results. Catalina Woody APRN.CIARRA Normal [facility] Trich vaginalis Amplon 03-25 T vag Amplification Negative Normal [facility] Comment on above: Performed By: #### T RVAMP #### [facility] [address] [place] [address] Trich vag Amp Source Cervix Normal [facility] Comment on above: Performed By: #### T RVAMP #### [facility] [facility] [address] [place] [id number] CNOVon 11-17-2017 CNOV Office Visit (FAMPWS) ---- MARGAUX CALDERÓN ([id number]) 2000 F Date Time Provider Department 11/17/17 7:40 AM FLASH JACOBSON ([facility]) FAMPWS During your visit today, we recorded the following information about you: Temperature Pulse Blood pressure Weight 98.8 degrees 69/minute 108/72 67.9 kg Height 1.651 m Flash Jacobson APRN.CIARRA 11/17/2017 8:55 AM Addendum Chief Complaint Patient presents with: Abdominal Pain Nausea HPI Margaux Calderón is a 17 year old female who presents here today for Above Complaints.. Patient presents to the office for the above complaints. Recently in the office to see Laura Hidalgo CNP for anxiety complaints. Started on Celexa. But she is not currently taking the medication due to a lack of perceived effectiveness. States that her abdominal symptoms were worsened by the medication. Provides a history of 2-3 years of constipation. Some stomach cramping after eating some meals. Mentions that she did a total body cleanse in July, which included gluten, dairy. She states that when she added gluten back, she started with abdominal cramping and has since stopped intake of gluten containing foods. Her symptoms have mainly been controlled since stopping the gluten. Does mention that she had a gluten free cake that was made with a large amount of black beans and had a lot of cramping and discomfort. When she does have abdominal pain, her pain is described as dull and achy. Mentions that last week, she two weeks ago, she went to [facility] for these complaints. I do not have the records present for this encounter. She states that she had normal labs and normal urine. She was given Bentyl and Zofran for her complaints. At this time, she states that her nausea is random. Does not follow any order with timing to meals, time of day. No fevers or chills. Stools have been hard, small within the past week. No bloody stools. No current abdominal pain. No current nausea. She does admit to daily symptoms of indigestion. Admits to not drinking any water. Does admit to occasional alcohol. Past medical history, appointments, medications, allergies reviewed. Previous Medical History PAST MEDICAL HISTORY Diagnosis Date - Constipation Previous Surgical History PAST SURGICAL HISTORY Procedure Laterality Date - NONE - TONSILLECTOMY 2016 Family History FAMILY HISTORY Problem Relation Age of Onset - Hypertension Father - Gi issues [OTHER] Mother Patient Allergies ALLERGIES Allergen Reactions - Bactrim [Sulfametho* Hives - Doxycycline Hives Current Medications Current Outpatient Prescriptions on File Prior to Visit: citalopram (CELEXA) 20 mg tablet 1/2 pill by mouth once daily for 1 week; then increase to a whole pill daily. levonorgestrel (MIRENA) 20 mcg/24 hr (5 years) IUD 1 Each by INTRAUTERINE route one time only for 1 dose. No current facility-administer ed medications on file prior to visit. Social History Social History Marital status: Single Spouse name: Years of education: Number of children: Social History Main Topics Smoking status: Never Smoker Smokeless tobacco: Never Used Alcohol use: No Drug use: No REVIEW OF SYSTEMS: as above ? Reviewed relevant PMHx, PSHx, Social Hx, current medications and allergies. EXAM: BP 108/72 (BP Site: Left Arm, BP Position: Sitting, BP Cuff Size: Regular Adult) Pulse 69 Temp 37.1 ?C (98.8 ?F) Ht 165.1 cm (5' 5) Wt 67.9 kg (149 lb 9.6 oz) SpO2 99% BMI 24.89 kg/m? General Appearance: Well appearing, alert, in no acute distress, well-hydrated, well nourished.. Lungs: Lungs clear to auscultation. No wheezing, rhonchi, rales. Heart: RRR without murmur, gallop, or rubs. No ectopy. Abdomen: Normal abdominal exam, Abdomen soft, non-tender, non-distended. Bowel sounds normal. No masses, organomegaly. Negative flower sign. Extremities: No deformities, edema. Health Maintenance List HPV VACCINE(1 of 3 - Female 3 Dose Series) due on 2009 GC (GONORRHEA) SCREENING (18-24) due on 2016 CHLAMYDIA SCREENING (18-24) due on 2016 DTAP,TDAP,TD(1 - Tdap) due on 2017 INFLUENZA(1) due on 12/20/2017 MENINGOCOCCAL CONJUGATE Completed Data reviewed Component Latest Ref Rng AND Units 02/19/2016 WBC 3.70 - 11.00 k/uL 5.42 RBC 3.90 - 5.20 m/uL 3.75 (L) Hemoglobin 11.5 - 15.5 g/dL 11.4 (L) Hematocrit 36.0 - 46.0 % 33.7 (L) MCV 80.0 - 100.0 fL 89.9 MCH 26.0 - 34.0 pG 30.4 MCHC 30.5 - 36.0 g/dL 33.8 RDW-CV 11.5 - 15.0 % 13.1 Platelet Count 150 - 400 k/uL 267 MPV 9.0 - 12.7 fL 11.4 Neut% % 49.8 Abs Neut (ANC) 1.45 - 7.50 k/uL 2.70 Lymph% % 40.2 Abs Lymph 1.00 - 4.00 k/uL 2.18 [place]% % 6.3 Abs [place] 0.00 - 0.86 k/uL 0.34 Eosin% % 3.1 Abs Eosin 0.00 - 0.45 k/uL 0.17 Baso% % 0.6 Abs Baso 0.00 - 0.10 k/uL 0.03 Diff Type Auto Diff Protein, Total 6.3 - 8.0 g/dL 6.6 Albumin 3.2 - 4.5 g/dL 4.0 Calcium 8.4 - 10.2 mg/dL 8.6 Bilirubin, Total 0.2 - 1.3 mg/dL 0.8 Alkaline Phosphatase 32 - 117 U/L 50 AST 13 - 35 U/L 21 Glucose 74 - 99 mg/dL 79 BUN 5 - 18 mg/dL 11 Creatinine 0.58 - 0.96 mg/dL 0.82 Sodium 136 - 144 mmol/L 139 Potassium 3.7 - 5.1 mmol/L 3.5 (L) Chloride 97 - 105 mmol/L 104 CO2 22 - 30 mmol/L 25 Anion Gap 9 - 18 mmol/L 10 ALT 7 - 38 U/L 14 eGFR-Pediatric Factor 0.67 EBV EA Antibody <0.9 AI <0.2 EBV VCA, IgG <0.9 AI 7.7 (H) EBV VCA, IgM <0.9 AI 0.2 ASSESSMENT/PLAN: 1. Constipation, unspecified constipation type - ICD9: 564.00, ICD10: K59.00 (primary diagnosis) - Probable function constipation with IBS component. Discussed 2-3 L of water daily, titration of miralax for daily stools. Avoid gluten containing foods. - POLYETHYLENE GLYCOL 3350 17 GRAM/DOSE ORAL POWDER 2. Nausea - ICD9: 787.02, ICD10: R11.0 - Intermittent with abdominal cramping, advised prn use of zofran. - ONDANSETRON 4 MG DISINTEGRATING TABLET 3. Abdominal cramping - ICD9: 789.00, ICD10: R10.9 - See #1. - DICYCLOMINE 10 MG CAPSULE 4. Gastroesophageal reflux disease without esophagitis - ICD9: 530.81, ICD10: K21.9 - Discussed lifestyle modifications including losing weight, limiting caffeine and no meals three hours before sleep - Begin treatment with Zantac 150 mg QD - RANITIDINE 150 MG TABLET Follow up as needed, discussed need to follow up if having fevers, chills, persistent nausea, abdominal pain. We will reach out and get [facility] records to assess need for further labs, testing. SPENCER Van APRN.CNP 11/17/2017 8:10 AM Addendum Please try to drink 2-3 L per day of water. Avoid eating 3 hours prior to bedtime, avoid excessive caffeine, and carbonated beverages. Flash Jacobson APRN.CNP __ CONSTIPATION----Justin ping your bowels moving smoothly What is constipation? Constipation is when you have trouble having bowel movements. Your stools may be very hard, making them so difficult to pass that you have to strain. Or you may feel like you still need to have a bowel movement even after you've had one. How often should I have a bowel movement? Not everyone has bowel movements once a day. Don't believe ads that say you must have a daily bowel movement to be regular. A normal range is generally 3 times a day to 3 times a week. You may be getting constipated if you begin to have bowel movements much less often than you usually do. What causes constipation? As the food you eat passes through your digestive tract, your body takes nutrients and water from the food. This process creates a stool, which is moved through your intestines with muscle contractions (squeezing motions). A number of things can affect this process. Being and taking vitamins are frequently associated. Other causes include not drinking enough fluids, not being active enough, not eating enough fiber, taking certain drugs, not going to the bathroom when you have the urge to have a bowel movement and regularly using laxatives. Any of these things can cause the stools to move more slowly through your intestines, leading to constipation. How is constipation treated? The main thing in treating constipation is to be sure you're eating enough fiber and drinking enough fluids. This helps your stools move through your intestines by increasing the bulk of your stools and making your stools softer. Increasing how much you exercise will also help. Eat plenty of fiber (see below). Two to 4 servings of fruits and 3 to 5 servings of vegetables a day is ideal. Add extra fiber to your diet by eating cereals that contain bran or by adding bran as a topping on your fruit or cereal. If you are adding fiber to your diet, start slowly and gradually increase the amount. This will help reduce gas and bloating. Make sure to drink plenty of water too. Foods rich in fiber: Unprocessed wheat bran Unrefined breakfast cereals (FiberOne) Whole wheat and rye flours Grainy breads, such as whole wheat, rye or pumpernickel Fresh fruits Dried fruits, such as prunes, apricots and figs Vegetables Legumes, such as chickpeas, baked beans and cruz beans What else can I use? One option is to stop taking vitamins and take another preparation, such as children's chewable vitamins. Wait a few days to see results. On the shelf at the drug store are several basic kinds of help for constipation. 'Stool softeners' and 'bulk-forming' agents are safe in . 'Laxatives', 'enemas', and 'suppositories' are better avoided. FIRST CHOICE: Bulk-forming laxatives work naturally to add bulk and water to your stools so that they can pass more easily through your intestines. Bulk-forming laxatives can be used every day. They include oat bran, psyllium (one brand: Metamucil), polycarbophil (one brand: FiberCon) and methylcellulose (one brand: Citrucel). Most people like Metamucil CAPSULES best of these three. You must use bulk-forming laxatives daily for them to work. Follow the directions on the label. Start slowly and drink plenty of fluids. Gradually increase how much you use every 3 to 5 days (as you get used to it) until you get the effect you want. Start with one. Six is the maximum. You can help bulk-forming laxatives taste better by mixing them with fruit juice. Be careful of the cookie form. They have lots of calories! SECOND CHOICE: Colace, or its generic equivalent, is essentially soap which coats the stool and makes it easier to pass. You may take one or two of the 100mg capsules (distinctive because of their bright red, clear oily appearance) a day. This ingredient is also found in some vitamin preparations. THIRD CHOICE Glycerin suppositories can be inserted in the rectum to ease a hard bowel movement out. These are kept in back by the pharmacist in a refrigerator (You have to ask), even though they do not require a prescription. FOURTH CHOICE: If none of the above are doing the trick, one dose of Milk of Magnesia, or one Dulcolax suppository may work. However, laxatives should usually be avoided. These include brand names like Correct-all and Ex-Lax. Dulcolax, Milk of Magnesia and Magnesium Citrate are also considered harsh in and theoretically at least, might also cause the baby to have a bowel movement of its own if the is far advanced enough, or send you into premature labor because of all the spasms going on in your abdomen. Mineral oil and Franklin oil should also be avoided. Should I try enemas? Enemas aren't usually needed, but would theoretically be okay for a one time use. What if I've been using enemas or laxatives for a long time? You may have to retrain your body to go without laxatives or enemas if you've been using them for a long time. This means eating plenty of fiber and using a bulk-forming laxative, drinking plenty of water, exercising and learning to give yourself time to have a bowel movement. If you've used laxatives and enemas for a long time, your family doctor may suggest that you wean yourself off of them slowly to give your system a chance to return to normal. Be patient?it may take many months for your bowels to get back to normal if you've been using laxatives or enemas regularly. Talk with your family doctor about any concerns you have. Flash Jacobson APRN.CNP 11/17/2017 8:58 AM Signed [place] Records received from 11/07/2017. Normal CBC, BMP. Negative Hcg urine. UA showed moderate blood (patient noted to be on menses). Flash Jacobson APRN.CNP Referring Provider: SELF [[id number]] Allergies As of Date: 11/17/2017 Noted Allergy Reaction BACTRIM (SULFAMETHOXAZOLE-T RIMETH*01/08/2016 4 - Hives DOXYCYCLINE 01/08/2016 4 - Hives Date Reviewed: 11/17/2017 Reviewed by: Flash Jacobson - Fully Assessed Reason for Visit: Abdominal Pain [1] Nausea [70] Primary Visit Diagnosis:Constipat ion, unspecified constipation type [K59.00] Other Visit Diagnoses:Nausea [R11.0] Abdominal cramping [R10.9] Gastroesophageal reflux disease without esophagitis [K21.9] Order(s):polyethyle ne glycol 3350 (MIRALAX) 17 gram/dose powderTake 17 g by mouth once daily for 10 days. Mix with 8 ounces of liquid and allow sufficient time to dissolve. (1 capful equals 17 g)Disp: 170 gRfl: 0 dicyclomine (BENTYL) 10 mg capsuleTake 1 capsule by mouth before meals and at bedtime.Disp: 40 capsuleRfl: 2 ondansetron orally disintegrating (ZOFRAN ODT) 4 mg disintegrating tabletTake 1 tablet by mouth every 8 hours as needed for Nausea/Vomiting.Dis p: 20 tabletRfl: 1 ranitidine (ZANTAC) 150 mg tabletTake 1 tablet by mouth daily at bedtime.Disp: 30 tabletRfl: 2 Prescriptions as of 11/17/2017 Sig: POLYETHYLENE GLYCOL 3350 17 G* Take 17 g by mouth once daily* DICYCLOMINE 10 MG CAPSULE Take 1 capsule by mouth befor* ONDANSETRON 4 MG DISINTEGRATI* Take 1 tablet by mouth every * RANITIDINE 150 MG TABLET Take 1 tablet by mouth daily * LEVONORGESTREL 20 MCG/24 HR (* 1 Each by INTRAUTERINE route * Problem List As Of Date 11/17/2017 Noted Resolved Irregular menstrual bleeding [N92.6] INVALID FOR* Other instructions from your clinician: Please try to drink 2-3 L per day of water. Avoid eating 3 hours prior to bedtime, avoid excessive caffeine, and carbonated beverages. Flash Jacobson APRN.CIARRA __ CONSTIPATION----Justin ping your bowels moving smoothly What is constipation? Constipation is when you have trouble having bowel movements. Your stools may be very hard, making them so difficult to pass that you have to strain. Or you may feel like you still need to have a bowel movement even after you've had one. How often should I have a bowel movement? Not everyone has bowel movements once a day. Don't believe ads that say you must have a daily bowel movement to be regular. A normal range is generally 3 times a day to 3 times a week. You may be getting constipated if you begin to have bowel movements much less often than you usually do. What causes constipation? As the food you eat passes through your digestive tract, your body takes nutrients and water from the food. This process creates a stool, which is moved through your intestines with muscle contractions (squeezing motions). A number of things can affect this process. Being and taking vitamins are frequently associated. Other causes include not drinking enough fluids, not being active enough, not eating enough fiber, taking certain drugs, not going to the bathroom when you have the urge to have a bowel movement and regularly using laxatives. Any of these things can cause the stools to move more slowly through your intestines, leading to constipation. How is constipation treated? The main thing in treating constipation is to be sure you're eating enough fiber and drinking enough fluids. This helps your stools move through your intestines by increasing the bulk of your stools and making your stools softer. Increasing how much you exercise will also help. Eat plenty of fiber (see below). Two to 4 servings of fruits and 3 to 5 servings of vegetables a day is ideal. Add extra fiber to your diet by eating cereals that contain bran or by adding bran as a topping on your fruit or cereal. If you are adding fiber to your diet, start slowly and gradually increase the amount. This will help reduce gas and bloating. Make sure to drink plenty of water too. Foods rich in fiber: Unprocessed wheat bran Unrefined breakfast cereals (FiberOne) Whole wheat and rye flours Grainy breads, such as whole wheat, rye or pumpernickel Fresh fruits Dried fruits, such as prunes, apricots and figs Vegetables Legumes, such as chickpeas, baked beans and cruz beans What else can I use? One option is to stop taking vitamins and take another preparation, such as children's chewable vitamins. Wait a few days to see results. On the shelf at the drug store are several basic kinds of help for constipation. 'Stool softeners' and 'bulk-forming' agents are safe in . 'Laxatives', 'enemas', and 'suppositories' are better avoided. FIRST CHOICE: Bulk-forming laxatives work naturally to add bulk and water to your stools so that they can pass more easily through your intestines. Bulk-forming laxatives can be used every day. They include oat bran, psyllium (one brand: Metamucil), polycarbophil (one brand: FiberCon) and methylcellulose (one brand: Citrucel). Most people like Metamucil CAPSULES best of these three. You must use bulk-forming laxatives daily for them to work. Follow the directions on the label. Start slowly and drink plenty of fluids. Gradually increase how much you use every 3 to 5 days (as you get used to it) until you get the effect you want. Start with one. Six is the maximum. You can help bulk-forming laxatives taste better by mixing them with fruit juice. Be careful of the cookie form. They have lots of calories! SECOND CHOICE: Colace, or its generic equivalent, is essentially soap which coats the stool and makes it easier to pass. You may take one or two of the 100mg capsules (distinctive because of their bright red, clear oily appearance) a day. This ingredient is also found in some vitamin preparations. THIRD CHOICE Glycerin suppositories can be inserted in the rectum to ease a hard bowel movement out. These are kept in back by the pharmacist in a refrigerator (You have to ask), even though they do not require a prescription. FOURTH CHOICE: If none of the above are doing the trick, one dose of Milk of Magnesia, or one Dulcolax suppository may work. However, laxatives should usually be avoided. These include brand names like Correct-all and Ex-Lax. Dulcolax, Milk of Magnesia and Magnesium Citrate are also considered harsh in and theoretically at least, might also cause the baby to have a bowel movement of its own if the is far advanced enough, or send you into premature labor because of all the spasms going on in your abdomen. Mineral oil and Franklin oil should also be avoided. Should I try enemas? Enemas aren't usually needed, but would theoretically be okay for a one time use. What if I've been using enemas or laxatives for a long time? You may have to retrain your body to go without laxatives or enemas if you've been using them for a long time. This means eating plenty of fiber and using a bulk-forming laxative, drinking plenty of water, exercising and learning to give yourself time to have a bowel movement. If you've used laxatives and enemas for a long time, your family doctor may suggest that you wean yourself off of them slowly to give your system a chance to return to normal. Be patient?it may take many months for your bowels to get back to normal if you've been using laxatives or enemas regularly. Talk with your family doctor about any concerns you have. Prescriptions ordered this encounter Disp Refills Start End POLYETHYLENE GLYCOL 3350 17 GRAM/DOS* 170 g 0 11/17/2017 11/27/2017 Route: ORAL Sig: Take 17 g by mouth once daily for 10 days. Mix with 8 ounces of liquid and allow sufficient time to dissolve. (1 capful equals 17 g) DICYCLOMINE 10 MG CAPSULE 40 c* 2 11/17/2017 Route: ORAL Sig: Take 1 capsule by mouth before meals and at bedtime. ONDANSETRON 4 MG DISINTEGRATING TABL* 20 t* 1 11/17/2017 Route: ORAL Sig: Take 1 tablet by mouth every 8 hours as needed for Nausea/Vomiting. RANITIDINE 150 MG TABLET 30 t* 2 11/17/2017 Route: ORAL Sig: Take 1 tablet by mouth daily at bedtime. Medications Discontinued During This Encounter citalopram (CELEXA) 20 mg tablet 30 t* 5 08/05/2017 11/17/2017 Si/2 pill by mouth once daily for 1 week; then increase to a whole pill daily. Patient not taking: Reported on 11/17/2017 Disc: Reason for discontinue is not on file. ondansetron (ZOFRAN) 4 mg tablet 11/17/2017 Class: Historical Med Route: ORAL Sig: Take 4 mg by mouth every 6 hours as needed. Disc: Reason for discontinue is not on file. polyethylene glycol 3350 (MIRALAX) 1* 170 g 0 10/17/2015 11/17/2017 Route: ORAL Sig: Take 17 g by mouth once daily for 10 days. Mix with 8 ounces of liquid and allow sufficient time to dissolve. (1 capful equals 17 g) Disc: Reason for discontinue is not on file. Disposition: Return if symptoms worsen or fail to improve. Follow-up and Disposition History Recorded Encounter Status:Closed by FLASH JACOBSON CNP on 11/17/17 Normal [facility] PROGRESSon 11-17-2017 Protein mass conc HNO ID: [id number] Author: Flash Yun) Indira Service: (none) Author Type: Nurse Practitioner Type: Progress Notes Filed: 11/17/2017 8:58 AM Note Text: [place] Records received from 11/07/2017. Normal CBC, BMP. Negative Hcg urine. UA showed moderate blood (patient noted to be on menses). Flash Jacobson APRN.CNP Normal [facility] Protein mass conc HNO ID: [id number] Author: Flash Jacobson Service: (none) Author Type: Nurse Practitioner Type: Progress Notes Filed: 11/17/2017 8:55 AM Note Text: Chief Complaint Patient presents with: Abdominal Pain Nausea HPI Margaux Calderón is a 17 year old female who presents here today for Above Complaints.. Patient presents to the office for the above complaints. Recently in the office to see Laura Hidalgo CNP for anxiety complaints. Started on Celexa. But she is not currently taking the medication due to a lack of perceived effectiveness. States that her abdominal symptoms were worsened by the medication. Provides a history of 2-3 years of constipation. Some stomach cramping after eating some meals. Mentions that she did a total body cleanse in July, which included gluten, dairy. She states that when she added gluten back, she started with abdominal cramping and has since stopped intake of gluten containing foods. Her symptoms have mainly been controlled since stopping the gluten. Does mention that she had a gluten free cake that was made with a large amount of black beans and had a lot of cramping and discomfort. When she does have abdominal pain, her pain is described as dull and achy. Mentions that last week, she two weeks ago, she went to [facility] for these complaints. I do not have the records present for this encounter. She states that she had normal labs and normal urine. She was given Bentyl and Zofran for her complaints. At this time, she states that her nausea is random. Does not follow any order with timing to meals, time of day. No fevers or chills. Stools have been hard, small within the past week. No bloody stools. No current abdominal pain. No current nausea. She does admit to daily symptoms of indigestion. Admits to not drinking any water. Does admit to occasional alcohol. Past medical history, appointments, medications, allergies reviewed. Previous Medical History PAST MEDICAL HISTORY Diagnosis Date - Constipation Previous Surgical History PAST SURGICAL HISTORY Procedure Laterality Date - NONE - TONSILLECTOMY HX 2016 Family History FAMILY HISTORY Problem Relation Age of Onset - Hypertension Father - Gi issues [OTHER] Mother Patient Allergies ALLERGIES Allergen Reactions - Bactrim [Sulfametho* Hives - Doxycycline Hives Current Medications Current Outpatient Prescriptions on File Prior to Visit: citalopram (CELEXA) 20 mg tablet 1/2 pill by mouth once daily for 1 week; then increase to a whole pill daily. levonorgestrel (MIRENA) 20 mcg/24 hr (5 years) IUD 1 Each by INTRAUTERINE route one time only for 1 dose. No current facility-administer ed medications on file prior to visit. Social History Social History Marital status: Single Spouse name: Years of education: Number of children: Social History Main Topics Smoking status: Never Smoker Smokeless tobacco: Never Used Alcohol use: No Drug use: No REVIEW OF SYSTEMS: as above ? Reviewed relevant PMHx, PSHx, Social Hx, current medications and allergies. EXAM: BP 108/72 (BP Site: Left Arm, BP Position: Sitting, BP Cuff Size: Regular Adult) Pulse 69 Temp 37.1 ?C (98.8 ?F) Ht 165.1 cm (5' 5) Wt 67.9 kg (149 lb 9.6 oz) SpO2 99% BMI 24.89 kg/m? General Appearance: Well appearing, alert, in no acute distress, well-hydrated, well nourished.. Lungs: Lungs clear to auscultation. No wheezing, rhonchi, rales. Heart: RRR without murmur, gallop, or rubs. No ectopy. Abdomen: Normal abdominal exam, Abdomen soft, non-tender, non-distended. Bowel sounds normal. No masses, organomegaly. Negative flower sign. Extremities: No deformities, edema. Health Maintenance List HPV VACCINE(1 of 3 - Female 3 Dose Series) due on 2009 GC (GONORRHEA) SCREENING (18-24) due on 2016 CHLAMYDIA SCREENING (18-24) due on 2016 DTAP,TDAP,TD(1 - Tdap) due on 2017 INFLUENZA(1) due on 12/20/2017 MENINGOCOCCAL CONJUGATE Completed Data reviewed Component Latest Ref Rng AND Units 02/19/2016 WBC 3.70 - 11.00 k/uL 5.42 RBC 3.90 - 5.20 m/uL 3.75 (L) Hemoglobin 11.5 - 15.5 g/dL 11.4 (L) Hematocrit 36.0 - 46.0 % 33.7 (L) MCV 80.0 - 100.0 fL 89.9 MCH 26.0 - 34.0 pG 30.4 MCHC 30.5 - 36.0 g/dL 33.8 RDW-CV 11.5 - 15.0 % 13.1 Platelet Count 150 - 400 k/uL 267 MPV 9.0 - 12.7 fL 11.4 Neut% % 49.8 Abs Neut (ANC) 1.45 - 7.50 k/uL 2.70 Lymph% % 40.2 Abs Lymph 1.00 - 4.00 k/uL 2.18 Luzerne% % 6.3 Abs [place] 0.00 - 0.86 k/uL 0.34 Eosin% % 3.1 Abs Eosin 0.00 - 0.45 k/uL 0.17 Baso% % 0.6 Abs Baso 0.00 - 0.10 k/uL 0.03 Diff Type Auto Diff Protein, Total 6.3 - 8.0 g/dL 6.6 Albumin 3.2 - 4.5 g/dL 4.0 Calcium 8.4 - 10.2 mg/dL 8.6 Bilirubin, Total 0.2 - 1.3 mg/dL 0.8 Alkaline Phosphatase 32 - 117 U/L 50 AST 13 - 35 U/L 21 Glucose 74 - 99 mg/dL 79 BUN 5 - 18 mg/dL 11 Creatinine 0.58 - 0.96 mg/dL 0.82 Sodium 136 - 144 mmol/L 139 Potassium 3.7 - 5.1 mmol/L 3.5 (L) Chloride 97 - 105 mmol/L 104 CO2 22 - 30 mmol/L 25 Anion Gap 9 - 18 mmol/L 10 ALT 7 - 38 U/L 14 eGFR-Pediatric Factor 0.67 EBV EA Antibody <0.9 AI <0.2 EBV VCA, IgG <0.9 AI 7.7 (H) EBV VCA, IgM <0.9 AI 0.2 ASSESSMENT/PLAN: 1. Constipation, unspecified constipation type - ICD9: 564.00, ICD10: K59.00 (primary diagnosis) - Probable function constipation with IBS component. Discussed 2-3 L of water daily, titration of miralax for daily stools. Avoid gluten containing foods. - POLYETHYLENE GLYCOL 3350 17 GRAM/DOSE ORAL POWDER 2. Nausea - ICD9: 787.02, ICD10: R11.0 - Intermittent with abdominal cramping, advised prn use of zofran. - ONDANSETRON 4 MG DISINTEGRATING TABLET 3. Abdominal cramping - ICD9: 789.00, ICD10: R10.9 - See #1. - DICYCLOMINE 10 MG CAPSULE 4. Gastroesophageal reflux disease without esophagitis - ICD9: 530.81, ICD10: K21.9 - Discussed lifestyle modifications including losing weight, limiting caffeine and no meals three hours before sleep - Begin treatment with Zantac 150 mg QD - RANITIDINE 150 MG TABLET Follow up as needed, discussed need to follow up if having fevers, chills, persistent nausea, abdominal pain. We will reach out and get [place] [facility] records to assess need for further labs, testing. Flash Jacobson APRN.DOCK CLERK Normal [facility] .Auto Diffon 11-08-2017 Basophils Auto #/vol (Bld) 0.00 10 3/mcL Normal 0.00-0.19 [facility] ([place]) Comment on above: Performed By: #### C BC, ADIFF, ANEU, BMP, GFR ####[facility] [address] [address] Basophils/100 WBC Auto (Bld) 0.3 % Normal 0.0-2.5 [facility] ([place]) Comment on above: Performed By: #### C BC, ADIFF, ANEU, BMP, GFR ####[facility] [address] [place], [place] [address] Eosinophils 0.00 10 3/mcL Normal 0.00-0.40 [facility] ([place]) Comment on above: Performed By: #### C BC, ADIFF, ANEU, BMP, GFR ####[facility] [address] [place], [place] [address] Eosinophils/100 leukocytes 0.3 % Normal 0.0-7.0 [facility] ([place]) Comment on above: Performed By: #### C BC, ADIFF, ANEU, BMP, GFR ####[facility] [address] [place], [place] [address] Lymphocytes 1.00 10 3/mcL Normal 0.77-3.85 [facility] ([place]) Comment on above: Performed By: #### C BC, ADIFF, ANEU, BMP, GFR ####[facility] [address] [place], [place] [address] Lymphocytes/100 leukocytes 20.4 % Normal 10.0-50.0 [facility] ([place] Comment on above: Performed By: #### C BC, ADIFF, ANEU, BMP, GFR ####[facility] [address] [place], [place] [address] Monocytes 0.60 10 3/mcL Normal 0.15-1.00 [facility] ([place] Comment on above: Performed By: #### C BC, ADIFF, ANEU, BMP, GFR ####[facility] [address] [place], [place] [address] Monocytes/100 leukocytes 11.0 % Normal 1.7-13.0 [facility] ([place] Comment on above: Performed By: #### C BC, ADIFF, ANEU, BMP, GFR ####[facility] [address] [place], [place] [address] Neutrophils/100 WBC Auto (Bld) 68.0 % Normal 37.0-80.0 [facility] ([place] Comment on above: Performed By: #### C BC, ADIFF, ANEU, BMP, GFR ####[facility] [address] [place], [place] [address] .GFRon 11-08-2017 GFR Non- >60 Normal [facility] ([place]) Comment on above: Result Comment: GFR Population mean for , Non- Americans Ages 20-29 = 116 mL/min/1.73 sq.m. Ages 30-39 = 107 mL/min/1.73 sq.m. Ages 40-49 = 99 mL/min/1.73 sq.m. Ages 50-59 = 93 mL/min/1.73 sq.m. Ages 60-69 = 85 mL/min/1.73 sq.m. Ages 70+ = 75 mL/min/1.73 sq.m.Chronic Kidney Disease: Less than 60 mL/min/1.73 square metersEnd Stage Renal Disease: Less than 15 mL/min/1.73 square meters Performed By: #### C BC, ADIFF, ANEU, BMP, GFR ####[facility] [address] [place], [place] [address] GFR >60 Normal On license of [facility] ([place]) Comment on above: Result Comment: GFR Population mean for , Non- Americans Ages 20-29 = 116 mL/min/1.73 sq.m. Ages 30-39 = 107 mL/min/1.73 sq.m. Ages 40-49 = 99 mL/min/1.73 sq.m. Ages 50-59 = 93 mL/min/1.73 sq.m. Ages 60-69 = 85 mL/min/1.73 sq.m. Ages 70+ = 75 mL/min/1.73 sq.m.Chronic Kidney Disease: Less than 60 mL/min/1.73 square metersEnd Stage Renal Disease: Less than 15 mL/min/1.73 square meters Performed By: #### C BC, ADIFF, ANEU, BMP, GFR ####[facility] [address] [place], [place] [address] .NEUABSon 11-08-2017 Neutrophil, Absolute 3.50 10 3/mcL Normal 2.85-6.16 A [facility] ([place]) Comment on above: Performed By: #### C BC, ADIFF, ANEU, BMP, GFR ####[facility] [address] [place], [place] [address] .Urinalysis Microscopic (AO) on 11-08-2017 UA Squam Epithelial 0-5 Invalid Interpretation Code None Seen [facility] ([place]) Comment on above: Performed By: #### U A, UAMICAO, PREGU ####[facility] [address] [place], [place] [address] UA WBC None Seen Normal None Seen [facility] ([place] Comment on above: Performed By: #### U A, UAMICAO, PREGU ####[facility] [address] [place] [address] Urine, erythrocytes 15-25 Invalid Interpretation Code None Seen [facility] ([place] Comment on above: Performed By: #### U A, UAMICAO, PREGU ####[facility] [address] [place] [address] BMPon 11-08-2017 BUN/Creatinine Ratio 10 ratio Normal 7-27 On license of [facility] ([place]) Comment on above: Performed By: #### C BC, ADIFF, ANEU, BMP, GFR ####[facility] [address] [place] [address] Calcium 9.6 mg/dL Normal 8.4-10.2 [facility] ([place] Comment on above: Performed By: #### C BC, ADIFF, ANEU, BMP, GFR ####[facility] [address] [place] [address] CO2 27 mmol/L Normal 22-29 [facility] ([place] Comment on above: Performed By: #### C BC, ADIFF, ANEU, BMP, GFR ####[facility] [address] [place] [address] Creatinine 0.8 mg/dL Normal 0.6-1.2 [facility] ([place] Comment on above: Performed By: #### C BC, ADIFF, ANEU, BMP, GFR ####[facility] [address] [place] [address] Electrolyte Balance 8.0 mEq/L Normal [facility] ([place]) Comment on above: Performed By: #### C BC, ADIFF, ANEU, BMP, GFR ####[facility] [address] [place], [place] [address] Glucose mass conc 99 mg/dL Normal 70-105 [facility] ([place]) Comment on above: Performed By: #### C BC, ADIFF, ANEU, BMP, GFR ####[facility] [address] [place], [place] [address] Urea nitrogen 8.0 mg/dL Normal 7.0-18.0 [facility] ([place] Comment on above: Performed By: #### C BC, ADIFF, ANEU, BMP, GFR ####[facility] [address] [place], [place] [address] Chloride 105 mmol/L Normal 98-107 [facility] ([place] Comment on above: Performed By: #### C BC, ADIFF, ANEU, BMP, GFR ####[facility] [address] [place], [place] [address] Potassium molar conc 3.8 mmol/L Normal 3.5-5.1 On license of [facility] ([place]) Comment on above: Performed By: #### C BC, ADIFF, ANEU, BMP, GFR ####[facility] [address] [place], [place] [address] Sodium 140 mmol/L Normal 136-146 [facility] ([place] Comment on above: Performed By: #### C BC, ADIFF, ANEU, BMP, GFR ####[facility] [address] [place], [place] [address] CBCon 11-08-2017 Erythrocyte distribution width Auto Ratio (RBC) 13.2 % Normal 11.5-14.5 [facility] ([place] Comment on above: Performed By: #### C BC, ADIFF, ANEU, BMP, GFR ####[facility] [address] [place], [place] [address] Erythrocytes (RBC) 4.74 10 6/mcL Normal 4.20-5.40 [facility] ([place]) Comment on above: Performed By: #### C BC, ADIFF, ANEU, BMP, GFR ####[facility] [address] [place], [place] [address] Hematocrit (HCT) 41.8 % Normal 37.0-47.0 [facility] ([place] Comment on above: Performed By: #### C BC, ADIFF, ANEU, BMP, GFR ####[facility] [address] [place], [place] [address] Hemoglobin mass conc (Bld) 14.5 G/dL Normal 12.0-16.0 [facility] ([place]) Comment on above: Performed By: #### C BC, ADIFF, ANEU, BMP, GFR ####[facility] [address] [place], [place] [address] MCH 30.6 pg Normal 27.0-31.2 [facility] ([place] Comment on above: Performed By: #### C BC, ADIFF, ANEU, BMP, GFR ####[facility] [address] [place], [place] [address] MCHC mass conc (RBC) 34.7 G/dL Normal 33.0-37.0 On license of [facility] ([place]) Comment on above: Performed By: #### C BC, ADIFF, ANEU, BMP, GFR ####[facility] [address] [place], [place] [address] MCV 88.3 fL Normal 80.0-94.0 [facility] ([place]) Comment on above: Performed By: #### C BC, ADIFF, ANEU, BMP, GFR ####[facility] [address] [place], [place] [address] Platelet mean volume (PMV) 9.2 fL Normal 7.4-10.4 [facility] ([place] Comment on above: Performed By: #### C BC, ADIFF, ANEU, BMP, GFR ####[facility] [address] [place], [place] [address] Platelets 243 10 3/mcL Normal 130-400 [facility] ([place] Comment on above: Performed By: #### C BC, ADIFF, ANEU, BMP, GFR ####[facility] [address] [place], [place] [address] WBC (Leukocytes) 5.10 10 3/mcL Normal 4.60-10.80 [facility] ([place]) Comment on above: Performed By: #### C BC, ADIFF, ANEU, BMP, GFR ####[facility] [address] [place], [place] [address] ED Note-Provideron 8 Protein Normal [facility] ([place] PREGUon 11-08-2017 HCG ( test) Ql (U) Negative Normal [facility] ([place] Comment on above: Performed By: #### U A, UAMICAO, PREGU ####[facility] [address] [place], [place] [address] test (u) int HCG not detected. Invalid Interpretation Code [facility] ([place] Comment on above: Performed By: #### U A, UAMICAO, PREGU ####[facility] [address] [place], [place] [address] Pat Eduon 11-08-2017 Pat Edu Normal [facility] ([place] Patient Summary Documentson 11-08-2017 Patient Summary Documents Normal [facility] ([place] UAon 11-08-2017 UA Appear Clear Normal Clear [facility] ([place] Comment on above: Performed By: #### U A, UAMICAO, PREGU ####[facility] [address] [place], [place] [address] UA Blood Moderate Invalid Interpretation Code Negative [facility] ([place] Comment on above: Performed By: #### U A, UAMICAO, PREGU ####[facility] [address] [place], [place] [address] UA Leuk Est Negative Normal Negative [facility] ([place] Comment on above: Performed By: #### U A, UAMICAO, PREGU ####[facility] [address] [place], [place] [address] UA Nitrite Negative Normal Negative [facility] ([place] Comment on above: Performed By: #### U A, UAMICAO, PREGU ####[facility] [address] [place], [place] [address] UA pH 6.0 Normal [facility] ([place] Comment on above: Performed By: #### U A, UAMICAO, PREGU ####[facility] [address] [place], [place] [address] UA Protein Negative Normal Negative [facility] ([place] Comment on above: Performed By: #### U A, UAMICAO, PREGU ####[facility] [address] [place], [place] [address] UA Spec Grav 1.015 Normal [facility] ([place] Comment on above: Performed By: #### U A, UAMICAO, PREGU ####[facility] [address] [place], [place] [address] UA Specimen Type Clean Catch [facility] ([place]) Comment on above: Performed By: #### U A, UAMICAO, PREGU ####[facility] [address] [place], [place] [address] UA Urobilinogen 0.2 E.U./dL Normal [facility] ([place] Comment on above: Performed By: #### U A, UAMICAO, PREGU ####[facility] [address] [place], [place] [address] Urine, color Yellow Normal [facility] ([place] Comment on above: Performed By: #### U A, UAMICAO, PREGU ####[facility] [address] [place], [place] [address] Urine, glucose Negative Normal Negative [facility] ([place] Comment on above: Performed By: #### U A, UAMICAO, PREGU ####[facility] [address] [place], [place] [address] Urine, ketones presence Negative Normal Negative A [facility] ([place]) Comment on above: Performed By: #### U A, UAMICAO, PREGU ####[facility] [address] [place], [place] [address] Urine, urobilinogen Negative Normal Negative [facility] ([place]) Comment on above: Performed By: #### U A, UAMICAO, PREGU ####[facility] [address] [place], [place] [address] COVID-19 virus antigen assay SARS-CoV-2 (COVID-19) Ag IA.rapid Ql (Resp) [facility] [place] [facility] Work Phone: Vital Signs Date Time Vital Sign Value Performing Clinician Sammie hernandez 08-08-2023 15:26-0400 Body height 167.[address] Marbella Park Work Phone: [facility] [place] [facility] 08-08-2023 15:24-0400 Body mass index (BMI) [Ratio] 28.4 kg/m2 Dr. Marbella Park Work Phone: [facility] [place] [facility] 08-08-2023 15:24-0400 Body weight [address] Marbella Park Work Phone: [facility] [place] [facility] 08-08-2023 15:24-0400 Diastolic blood pressure 83 mm[Hg] Dr. Marbella Park Work Phone: [facility] [place] [facility] 08-08-2023 15:24-0400 Systolic blood pressure 127 mm[Hg] Dr. Marbella Park Work Phone: [facility] [place] [facility] 11-27-2022 15:51-0400 Body height 167.[address] Marbella Park Work Phone: [facility] [place] [facility] 11-27-2022 15:42-0400 Body mass index (BMI) [Ratio] 28.3 kg/m2 Dr. Marbella Park Work Phone: [facility] [place] [facility] 11-27-2022 15:42-0400 Body weight 79.[address] Marbella Park Work Phone: [facility] [place] [facility] 11-27-2022 15:42-0400 Diastolic blood pressure 76 mm[Hg] Dr. Marbella Park Work Phone: [facility] [place] [facility] 11-27-2022 15:42-0400 Systolic blood pressure 113 mm[Hg] Dr. Marbella Park Work Phone: [facility] [place] [facility] 07-03-2022 14:09-0400 Body height 167.[address] Marbella Park Work Phone: [facility] [place] [facility] 12-27-2021 08:45-0400 Body temperature 98.5 [degF] Dr. Marbella Park Work Phone: [facility] [place] [facility] Work Phone: 12-27-2021 08:45-0400 Diastolic blood pressure 62 mm[Hg] Dr. Marbella Park Work Phone: [facility] [place] [facility] Work Phone: 12-27-2021 08:45-0400 Heart rate 73 /min Dr. Marbella Park Work Phone: [facility] [place] [facility] Work Phone: 12-27-2021 08:45-0400 Respiratory rate 14 /min Dr. Marbella Park Work Phone: [facility] [place] [facility] Work Phone: 12-27-2021 08:45-0400 SaO2% (BldA) [Mass fraction] 98 % Dr. Marbella Park Work Phone: [facility] [place] [facility] Work Phone: 12-27-2021 08:45-0400 Systolic blood pressure 112 mm[Hg] Dr. Marbella Park Work Phone: [facility] [place] [facility] Work Phone: 09-04-2021 08:50-0400 Body height 167.[address] Marbella Park Work Phone: [facility] [place] [facility] Work Phone: 09-04-2021 08:50-0400 Body mass index (BMI) [Ratio] 26.9 kg/m2 Dr. Marbella Park Work Phone: [facility] [place] [facility] Work Phone: 09-04-2021 08:50-0400 Body weight 75.[address] Marbella Park Work Phone: [facility] [place] [facility] Work Phone: 09-04-2021 08:50-0400 Diastolic blood pressure 78 mm[Hg] Dr. Marbella Park Work Phone: [facility] [place] [facility] Work Phone: 09-04-2021 08:50-0400 Systolic blood pressure 110 mm[Hg] Dr. Marbella Park Work Phone: [facility] [place] [facility] Work Phone: Encounters Encounter Date Encounter Type Care Provider Facility Start: 03-03-2025 ambulatory Salvador Chi Amrit [facility] Fac[facility] Start: 09-09-2024 ambulatory Paty Fieldblu Facility :[facility] Start: 06-29-2024 ambulatory Salvador Chi Amrit OLS Facili ty:[facility] [place] [facility] Start: 06-08-2024 End: 06-18-2024 ambulatory Salvador Chi Amrit OLS Facility:[facility] [place] [facility] Start: 04-19-2024 End: 04-19-2024 ambulatory Efewongbe Oleghe Facility:[facility] Start: 03-31-2024 End: 03-31-2024 ambulatory Efewongbe Oleghe Facility:[facility] Start: 03-17-2024 End: 03-17-2024 ambulatory Efewongbe Oleghe Facility:[facility] Start: 03-12-2024 ambulatory Efewongbe Oleghe Facili ty:[facility] [place] [facility] Start: 03-10-2024 End: 03-10-2024 ambulatory Efewongbe Oleghe Facility:[facility] Start: 03-08-2024 ambulatory Efewongbe Oleghe Facili ty:[facility] Start: 03-04-2024 ambulatory Crystal Leonardo Fa cility:[facility] Start: 03-04-2024 End: 03-05-2024 Evaluation and management of inpatient Crystal Leonardo Facility:[facility] [place] [facility] Start: 02-24-2024 End: 02-24-2024 ambulatory MD TIRADO [facility] Start: 11-25-2023 End: 11-25-2023 ambulatory CHIP BACON [facility] Start: 10-28-2023 End: 10-28-2023 ambulatory NO PRIMARY CARE [facility] Start: 09-03-2023 End: 09-03-2023 ambulatory NO PRIMARY CARE [facility] Start: 08-08-2023 End: 08-08-[address] Marbella Park Work Phone: [facility] [place] [facility] Work Phone: Start: 08-08-2023 End: 08-08-[address] Marbella Park Work Phone: [facility] [place] [facility] Specimen Work Phone: Start: 08-08-2023 End: 08-08-[address] Marbella Park Work Phone: [facility] Work Phone: Start: 02-07-2023 End: 02-07-[address] Marbella Park Work Phone: [facility] [place] [facility] Work Phone: Start: 02-07-2023 End: 02-07-[address] Marbella Park Work Phone: [facility] [place] [facility] Work Phone: Start: 02-06-2023 End: 02-06-2023 ambulatory [facility] Start: 02-06-2023 Encounter for genera l adult medical examination without abnormal findings [facility] Start: 01-27-2023 Non-patient / Non-visit Dr. Kelvin Park Work Phone: [facility] Start: 01-26-2023 End: 02-18-[address] Marbella Park Work Phone: [facility] [place] [facility] Work Phone: Start: 01-26-2023 End: 02-18-[address] Marbella Park Work Phone: [facility] Start: 01-26-[address] Thomas Park Work Phone: [facility] Start: 01-20-2023 End: 01-20-[address] Marbella Park [facility]: Start: 01-15-2023 End: 01-18-[address] Marbella Park Work Phone: [facility] Start: 01-15-2023 End: 01-18-[address] Marbella Park Work Phone: [facility] [place] [facility] Work Phone: Start: 01-15-2023 End: 01-15-[address] Marbella Park Work Phone: [facility], [facility] Work Phone: Start: 01-03-2023 End: 01-18-[address] Marbella Park Work Phone: [facility] [place] [facility] Work Phone: Start: 01-03-2023 End: 01-18-[address] Marbella Park Work Phone: [facility] Start: 12-09-2022 End: 12-09-[address] Marbella Park Work Phone: [facility] [place] [facility] Work Phone: Start: 12-09-2022 End: 12-09-[address] Marbella Park Work Phone: [facility] [place] [facility], [facility] Work Phone: Start: 11-27-2022 End: 11-27-[address] Marbella Park Work Phone: [facility] Work Phone: Start: 07-30-2022 End: 08-18-[address] Marbella Park Work Phone: [facility] [place] [facility] Work Phone: Start: 07-30-2022 End: 08-18-[address] Marbella Park Work Phone: [facility] Start: 07-17-2022 End: 07-19-[address] Marbella Park Work Phone: [facility] [place] [facility] Work Phone: Start: 07-17-2022 End: 07-19-[address] Marbella Park Work Phone: [facility] Start: 07-17-[address] Thomas Park Work Phone: [facility] Start: 07-13-2022 End: 07-13-[address] Marbella Park Work Phone: [facility] [place] [facility] Work Phone: Start: 07-13-2022 End: 07-13-[address] Marbella Park Work Phone: [facility] [place] [facility] Start: 07-03-2022 End: 07-03-[address] Marbella Park Work Phone: [facility] Start: 05-31-[address] Preet Park Work Phone: [facility] Start: 05-03-2022 End: 05-21-[address] Marbella Park Work Phone: [facility] [place] [facility] Work Phone: Start: 05-03-2022 End: 05-21-[address] Marbella Park Work Phone: [facility] Start: 03-26-2022 End: 03-26-[address] Marbella Park Work Phone: [facility] [place] [facility] Work Phone: Start: 03-26-2022 End: 03-26-[address] Marbella Park Work Phone: [facility] Start: 02-26-2022 End: 03-20-[address] Marbella Park Work Phone: [facility] [place] [facility] Work Phone: Start: 02-26-2022 End: 03-20-[address] Marbella Park Work Phone: [facility] Start: 01-16-2022 End: 01-18-[address] Marbella Park Work Phone: [facility] Start: 12-27-2021 End: 12-27-[address] Marbella Park Work Phone: [facility] Start: 12-17-2021 End: 12-19-[address] Marbella Park Work Phone: [facility] [place] [facility] Work Phone: Start: 12-17-2021 End: 12-19-[address] Marbella Park Work Phone: [facility] Start: 09-04-2021 End: 09-04-[address] Marbella Park Work Phone: [facility] Start: 08-11-2018 End: 08-12-2018 Patient encounter procedure FLASH INDIRA [facility] Start: 05-26-2018 Patient encounter procedure MOHIT (CLINICAL TECHNICIAN) [facility] Start: 05-20-2018 End: 06-12-2018 Patient encounter procedure MOHIT (CLINICAL TECHNICIAN) [facility] Start: 05-11-2018 End: 05-12-2018 Patient encounter procedure FLASH (DOCK CLERK) INDIRA [facility] Start: 03-25-2018 End: 03-26-2018 Patient encounter procedure CATALINA (DOCK CLERK) ANNALISE [facility] Start: 11-17-2017 End: 11-18-2017 Patient encounter procedure FLASH (DOCK CLERK) INDIRA [facility] Start: 11-07-2017 End: 11-08-2017 Emergency department patient visit MARK HARVEY Facility:B Procedures Date Procedure Procedure Detail Performing Clinician Start: 08-08-[address] Thomas Park Work Phone: Start: 02-07-[address] Kelvin Park Work Phone: Start: 01-26-[address] Marbella Park Work Phone: Start: 01-20-2023 Bacterial nucleic ac id assay Dr. Marbella Park Work Phone: Start: 01-20-2023 Chlamydia trachomatis (PCR) Dr. Marbella Park Work Phone: Start: 01-15-[address] Marbella Park Work Phone: Start: 01-15-[address] Maris Park Work Phone: Start: 01-03-[address] Marbelal Park Work Phone: Start: 12-09-[address] Marjorie Park Work Phone: Start: 12-09-[address] Marbella Park Work Phone: Viral antigen assay Dr. Maris Park Work Phone: Viral antigen assay Dr. Maris Park Work Phone: Viral antigen assay Dr. Maris Park Work Phone: Viral antigen assay Dr. Maris Park Work Phone: Viral antigen assay Dr. Maris Park Work Phone: Plan of Treatment Date Care Activity Detail Author Start: 08-08-2023 Liquid based cervical cytology screening [facility] Start: 01-20-2023 Chlamydia trachomatis (PCR) Chlamydia trachomatis (PCR) [facility] Start: 01-20-2023 Neisseria gonorrhoeae (PCR) Neisseria gonorrhoeae (PCR) [facility] Start: 01-20-2023 Thyroid stimulating hormone measurement [facility] Start: 01-20-2023 Varicella-zoster virus antibody IgG measurement [facility] Start: 01-20-2023 [facility] Start: 07-13-2022 Dehydroepiandrosterone sulfate (DHEA-S) [Mass/volume] in Serum or Plasma [facility] Start: 07-13-2022 Testosterone Free [Mass/volume] in Serum or Plasma [facility] Start: 03-26-2022 Procedure [facility] Work Phone: 17-Hydroxyprogestero ne [Mass/volume] in Serum or Plasma [facility] Alanine aminotransfe rase [Enzymatic activity/volume] in Serum or Plasma [facility] Albumin [Mass/volume ] in Serum or Plasma [facility] Alkaline phosphatase [Enzymatic activity/volume] in Serum or Plasma [facility] Anion gap measurement [facility] Aspartate aminotrans ferase [Enzymatic activity/volume] in Serum or Plasma [facility] Bilirubin, total measurement [facility] BUN/Creatinine ratio [facility] Calcium [Mass/volume ] in Serum or Plasma [facility] Carbon dioxide, tota l [Moles/volume] in Serum or Plasma [facility] CBC W Auto Different ial panel - Blood [facility] Chlamydia trachomatis [facility] Chloride [Moles/volu me] in Serum or Plasma [facility] Creatinine [Moles/vo lume] in Serum or Plasma [facility] Dehydroepiandrostero ne sulfate (DHEA-S) [Mass/volume] in Serum or Plasma [facility] Glucose [Mass/volume ] in Serum or Plasma [facility] Hepatitis B surface antigen measurement [facility] Hepatitis C antibody measurement [facility] HIV 1+2 Ab+HIV1 p24 Ag [Presence] in Serum or Plasma by Immunoassay [facility] Measurement of renal function [facility] Neisseria gonorrhoea e DNA [Presence] in Genital specimen by EDMOND with probe detection [facility] Path report.final Dx Spec [facility] Potassium [Moles/vol ume] in Serum or Plasma [facility] Procedure [facility] Work Phone: Prolactin [Mass/volu me] in Serum or Plasma [facility] Rubella IgG measurement [facility] Sodium [Moles/volume ] in Serum or Plasma [facility] Total protein measurement [facility] Treponema sp Ab [Pre sence] in Serum [facility] Urea nitrogen [Mass/ volume] in Serum or Plasma [facility] US Pelvis [facility] US Pelvis transvaginal [facility] Immunizations Immunization Date Immunization Notes [facility]2019 measles, mumps and rubella virus vaccine Dr. Marbella Park Work Phone: [facility] 12-10-2018 measles, mumps and rubella virus vaccine Dr. Marbella Park Work Phone: [facility] Payers Date Payer Category Payer Self-pay [id number] 2023 Unknown [id number] 2017 Private Health Insurance [id number] 1998 Unknown [id number] 1998 Unknown [id number] 1998 Unknown [id number] [id number] 1998 Unknown [id number] [id number] 1998 Unknown [id number] Private Health Insurance [facility] [id number] Unknown [id number] [id number] Unknown [id number] [id number] Unknown [id number] [id number] Unknown [id number] [id number] Unknown [id number] [id number] Unknown [id number] [id number] Unknown [id number] [id number] Unknown [id number] [id number] Unknown [id number] [id number] Unknown [id number] [id number] Unknown [id number] [id number] Unknown [id number] [id number] Unknown [id number] Social History Date Type Detail Facility Start: 09-04-2021 End: 08-05-2023 Tobacco smoking status NHIS Unknown if ever smoked [facility] Start: 2000 Sex Assigned At Female [facility] Evaluation note Note Date & Type Note Facility Evaluation note Diagnosis Onset Date Encounter for IUD removal no neactive [facility] Work Phone: Evaluation note Note Date & Type Note Facility Evaluation note Diagnosis Onset Date Irritant contact dermatitis due to plant acute [facility] Work Phone: Evaluation note Note Date & Type Note Facility Evaluation note Diagnosis Onset Date Irritant contact dermatitis due to plant acute Encounter for pre-employment health screening examination acute [facility] Work Phone: Evaluation note Note Date & Type Note Facility Evaluation note Diagnosis Onset Date Encounter for pre-employment health screening examination acute [facility] Work Phone: Evaluation note Note Date & Type Note Facility Evaluation note Diagnosis Onset Date Encounter for pre-employment health screening examination acute Irregular menses acute Pelvic pain acute Encounter for routine gyneco logical examination noneactive [facility] Work Phone: Evaluation note Note Date & Type Note Facility Evaluation note Diagnosis Onset Date Irregular menses acute Pelvic pain acute Encounter for routine gyneco logical examination noneactive [facility] Work Phone: Evaluation note Note Date & Type Note Facility Evaluation note Diagnosis Onset Date Infertility acute Irregular menses acute Bipolar 2 disorder chronic [facility] Work Phone: Evaluation note Note Date & Type Note Facility Evaluation note Diagnosis Onset Date Consumes gluten free diet ac [place] Depression acute In vitro fertilization acute Infertility acute Irregular menses acute acute Seasonal allergies acute Supervision of high-risk acute Unicornuate uterus acute Bipolar 2 disorder chronic Generalized anxiety disorder chronic IBS (irritable bowel syndrome) chronic [facility] Work Phone: Summary Purpose Family History No Family History Records Found Relationship Condition Age at Onset Recorded Date/T angela Not Specified Alcoholism Unknown Arthritis Unknown Anxiety and depression Unknown father Hypertension Unknown Myocardial infarction 55 grandmother Congestive heart failure Unknown grandfather Malignant neoplasm of prostate Unknown Malignant neoplasm of colon Unknown Relationship Condition Age at Onset Recorded Date/T angela Not Specified Alcoholism Unknown Arthritis Unknown Anxiety and depression Unknown father Hypertension Unknown Myocardial infarction 55 Atrial fibrillation Unknown grandmother Congestive heart failure Unknown Diabetes mellitus Unknown grandfather Malignant neoplasm of prostate Unknown Malignant neoplasm of colon Unknown Advance Directives No Advanced Directives Records FoundNo Advanced Directives Records FoundNo Advanced Directives Records FoundNo Advanced Directives Records FoundNo Advanced Directives Records FoundNo Advanced Directives Records Found Chief Complaint and Reason for Visit Chief Complaint iud removal Reason for Visit Encounter for IUD re moval Chief Complaint 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 Reason for Visit Irritant contact imani matitis due to grinder carbon plant Complaint 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 [facility] PHYSICAL/[facility] Reason for Visit Irritant contact imani matitis due to plant Encounter for pre-employment health screening examination Chief Complaint [facility] PHYSICAL/[facility] Reason for Visit Encounter for pre-em ployment health screening examination Chief Complaint [facility]YS[facility] 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 Reason for Visit Encounter for pre-em ployment health screening examination Irregular menses Pelvic pain Encounter for routine gynecological examination Chief Complaint 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 Reason for Visit Irregular menses Pelvic pain Encounter for routine gynecological examination Chief Complaint discuss difficulty c onceiving PELVIC AND PERINEAL PAIN Reason for Visit Infertility Irregular menses Bipolar 2 disorder Chief Complaint discuss difficulty c onceiving PELVIC AND PERINEAL PAIN Pelvic and perineal pain Reason for Visit Infertility Irregular menses Bipolar 2 disorder Chief Complaint discuss difficulty c onceiving PELVIC AND PERINEAL PAIN Pelvic and perineal pain FAX RESULTS [phone] Reason for Visit Infertility Irregular menses Bipolar 2 disorder Chief Complaint discuss difficulty c onceiving PELVIC AND PERINEAL PAIN Pelvic and perineal pain FAX RESULTS [phone] Pelvic and perineal pain Unicornate uterus Reason for Visit Infertility Irregular menses Bipolar 2 disorder Chief Complaint NOB IVF trsf 07/02 PAP Reason for Visit Consumes gluten free diet Depression In vitro fertilization Infertility Irregular menses Seasonal allergies Supervision of high-risk Unicornuate uterus Bipolar 2 disorder Generalized anxiety disorder IBS (irritable bowel syndrome) Additional Source Comments INFORMATION SOURCE (unrecogn ized section and content) DATE CREATED AUTHOR 11/09/2017 [facility] DATE CREATED AUTHOR AUTHOR'S ORGANIZ ATION 06/09/2018 [facility] DATE CREATED AUTHOR AUTHOR'S ORGANIZ ATION 08/18/2018 [facility] DATE CREATED AUTHOR AUTHOR'S ORGANIZ ATION 02/12/2023 Dennis Yee [facility] DATE CREATED AUTHOR AUTHOR'S ORGANIZ ATION 02/25/2024 [facility] DATE CREATED AUTHOR AUTHOR'S ORGANIZ ATION 03/02/2025 [facility] Goals (unrecognized section and content) Goals may be documented in a n alternate sectionGoals may be documented in an alternate sectionGoals may be documented in an alternate sectionGoals may be documented in an alternate sectionGoals may be documented in an alternate sectionGoals may be documented in an alternate sectionGoals may be documented in an alternate sectionGoals may be documented in an alternate sectionGoals may be documented in an alternate sectionGoals may be documented in an alternate sectionGoals may be documented in an alternate sectionGoals may be documented in an alternate sectionGoals may be documented in an alternate sectionGoals may be documented in an alternate section Care Teams (unrecognized sec tion and content) Team Status: Active Member Role Status Dates Dr. Ruiz Wong DO Family Provider Active Dr. Marbella Park MD Primary Care Provider Active Team Status: Inactive Member Role Status Dates Dr. Marbella Park MD Primary Care Provider, Refer ring Provider Active Jean WEAVER, PA Attending Provider Active Team Status: Inactive Member Role Status Dates Dr. Marbella Park MD Primary Care Provider Active Dr. Salvador Marcus MD Attending Provider Active Team Status: Inactive Member Role Status Dates Dr. Marbella Park MD Primary Care Provider Active Chip Bacon CLINICAL TECHNICIAN, CLINICAL TECHNICIAN-C Attending Provider, Referring Provider Active Team Status: Inactive Member Role Status Dates Dr. Marbella Park MD Primary Care Provider, Refer ring Provider Active Elsie Calvin CNM Attending Provider Active Team Status: Active Member Role Status Dates Dr. Marbella Park MD Primary Care Provider Active Dr. Salvador Marcus MD Attending Provider Active Team Status: Active Member Role Status Dates Dr. Marbella Park MD Primary Care Provider Active Health Risk Assessment Attending Provider, Referring P rovider Active Team Status: Inactive Member Role Status Dates Dr. Marbella Park MD Primary Care Provider Active Elsie Calvin CNM Attending Provider Active Team Status: Inactive Member Role Status Dates Dr. Marbella Park MD Primary Care Provider Active Elsie Calvin CNM Attending Provider, Referring Pr ovider Active Team Status: Active Member Role Status Dates Dr. Marbella Park MD Primary Care Provider Active Dr. Crystal Leonardo DO Attending Provider Activ e Dr. Ca Cesar MD Other Provider Active Team Status: Inactive Member Role Status Dates Dr. Marbella Park MD Primary Care Provider Active Dr. Crystal Leonardo DO Attending Provider Activ e Dr. Ca Cesar MD Other Provider Active Team Status: Active Member Role Status Dates Dr. Marbella Park MD Primary Care Provider Active Dr. Ca Cesar MD Attending Provider, Referring Provider Active Team Status: Active Member Role Status Dates Dr. Marbella Park MD Primary Care Provider Active Dr. Crystal Leonardo DO Attending Provider, Othe r Provider Active Dr. Ca Cesar MD Other Provider Active Team Status: Inactive Member Role Status Dates Dr. Marbella Park MD Primary Care Provider Active Dr. Ca Cesar MD Attending Provider, Referring Provider Active Team Status: Inactive Member Role Status Dates Dr. Marbella Park MD Primary Care Provider, Refer ring Provider Active Dr. Crystal Leonardo DO Attending Provider Activ e Team Status: Inactive Member Role Status Dates Dr. Marbella Park MD Primary Care Provider Active Dr. Crystal Leonardo DO Attending Provider, Refe rring Provider Active FOR RECORDS PERTAINING TO PATIENTS WHO ARE OR HAVE BEEN ENROLLED IN A CHEMICAL DEPENDENCY/SUBSTANCEABUSE PROGRAM, SOME INFORMATION MAY BE OMITTED. This clinical summary was aggregated from multiple sources. Caution should be exercised in using it in the provision of clinical care. This summary normalizes information from multiple sources, and as a consequence, information in this document may materially change the coding, format and clinical context of patient data. In addition, data may be omitted in some cases. CLINICAL DECISIONS SHOULD BE BASED ON THE PRIMARY CLINICAL RECORDS. [facility] provides no warranty or guarantee of the accuracy or completeness of information in this document.
[2025-03-07 05:06] LABS: Chlamydia By Nucleic Acid AMP Negative (Negative); Gonococcus By Nucleic Acid AMP Negative (Negative)
== END | disposition home or self-care (01) ==
PROVIDERS: PCP Family Medicine Geriatric Medicine; Referring Provider Obstetrics & Gynecology; Visit Provider Obstetrics & Gynecology
DX: O09.90 Supervision of high risk pregnancy, unspecified, unspecified trimester (principal); Z3A.00 Weeks of gestation of pregnancy not specified; N89.8 Other specified noninflammatory disorders of vagina; O99.891 Other specified diseases and conditions complicating pregnancy
CPT/HCPCS: 87070; 87086; 87205; 87491; 87591

== ENCOUNTER → 2025-03-04 | Outpatient (CLI) | payer BC, SELFPAY ==
--- OUTSIDE RECORDS SUMMARY | 2025-03-04 13:23 | XMS RPT_ITS | CCD ---
Author Organization [facility] Care Team Providers Care Manager Developmental Name Role Phone MARK HARVEY Unavailable Unavailable PHYSICIAN, NONE Unavailable Unavailable THORPE, MOHIT (GREASE CUP FILLER) Referring Unavailable INDIRA, FLASH (INTERVENTIONAL TECHNOLOGIST) Attending Unavailable ANNALISECATALINA (INTERVENTIONAL TECHNOLOGIST) Attending Unavailable INDIRA, FLASH (INTERVENTIONAL TECHNOLOGIST) Attending Unavailable INDIRA, FLASH (INTERVENTIONAL TECHNOLOGIST) Referring Unavailable THORPE, MOHIT (GREASE CUP FILLER) Attending Unavailable INDIRA, FLASH (INTERVENTIONAL TECHNOLOGIST) Referring Unavailable THORPE, MOHIT (GREASE CUP FILLER) Referring Unavailable Dr. Marbella Park Primary Care Provider [phone] Dr. Marbella Park Referring Provider [phone] Arleen AWAN, EMPERATRIZ-Chava Bautista Attending Provider [phone] Dr. Marbella Park Primary Care Provider [phone]) Dr. Marbella Park Referring Provider [phone] OWEN Adhikari Attending Provider Dr. Marbella Park Primary Care Provider [phone]) Dr. Marbella Park Referring Provider [phone] OWEN Adhikari Attending Provider [phone] Dr. Marbella Park Primary Care Provider [phone]) Dr. Marbella Park Referring Provider [phone] OWEN Adhikari Attending Provider [phone] YULIYA Calvin Attending Provider [phone] Dr. Marbella [...] Referring Unavailable Oleghe, Efewongbe Referring Unavailable Sebastián GREASE CUP FILLERVira Attending Unavailable Oleghe, Efewongbe Primary Care Unavailable [...] Unavailable Mackenzie Naranjo Attending Unavailable Amrit OLS, Salvador Chi Primary Care Unavailable Oleghe, Efewongbe Referring Unavailable Arleen GREASE CUP FILLERChip Attending Unavailable Oleghe, Efewongbe Primary Care Unavailable Oleghe, Efewongbe Referring Unavailable Vira Lowery NP Attending Unavailable Oleghe, Efewongbe Primary Care Unavailable Oleghe, Efewongbe Referring Unavailable Arleen GREASE CUP FILLERChip Attending Unavailable Oleghe, Efewongbe Primary Care Unavailable Allergies Allergy Classification Reported Allergen(s) Allergy Type Date of Onset Reaction(s) Facility (18 sources) Doxycycline; Translations: [DOXYCYCLINE] Drug Allergy 01-08-20 16 [facility] Repository (17 sources) Gluten; Translations: [GLUTEN] Propensity to adverse reactions to drug (disorder) 05-11-19 19 Nausea/Vom/Val rrhea [facility] Repository (3 sources) Sulfamethoxazole / Trimethoprim; Translations: [SULFAMETHOXAZOLE-T RIMETHOPRIM] Drug Allergy 01-08-20 16 [facility] Repository (14 sources) Sulfamethoxazole Drug Allergy 09-05-19 22 [facility] (14 sources) Trimethoprim Drug Allergy 09-05-19 22 [facility] (1 source) GLUTEN MEAL; Translations: [GLUTEN MEAL] Propensity to adverse reactions to drug (disorder) 09-03-19 24 [facility] Repository (1 source) Sulfamethoxazole Drug Allergy 02-18-20 [facility] Repository (1 source) Trimethoprim Drug Allergy 02-18-20 25 [facility] Repository Medications Current Medications Medication Drug [...] 2018 12:00am March 08, 2020 10:51am Multivit 80-Ovuf-Awwjvb 1-Dha (Pnv-Dha) 27 mg iron-1 mg -300 mg capsule (1 source) Start: 08-05-2023 Multivit 90-Yypj-Pmtmbc 1-Dha (Pnv-Dha) 27 mg iron-1 mg -300 [...] 2021 12:00am February 20, 2021 8:22am levonorgestrel 0.536415 mg/hr intrauterine system (14 sources) Progestin, Progestin-containing [...] RAPID METHOD BinaxNow COVID19 Ag Card Normal [facility] Comment on above: Performed By: #### M 100.505 #### [facility] [address] [place], [place], [id number] /Rebecca 04-27-2024 /[facility] [address] [place], [place] [address] OFFICE VISIT Date of Service: 03/31/24 MR#: [id number] Acct: [id number] Name: HELIO RUSSELL Rep #: [id number] : 2000 Provider: Vira Lowery NP Age/Sex: 23/F [place] [facility] [place]: [place] Intake Vital Signs 03/17/24 15:45 [...] (irritable bowel syndrome) Seasonal allergies Surgical History [place] teeth extracted S/P tonsillectomy Family History Father [...] 3-4 times per week duration: 45-60 minutes/day jak/holiness: Advent seatbelt use: always do you feel safe [...] - full term 7lbs 2oz Male spinal [facility] Crystal Cadet Delivery Date: 03/04/24 Last Updated [...] and intake (more content not included)... Normal [facility] Strategic Alliances Manager Office Visit Reporton 04-19-2024 Strategic Alliances Manager Office Visit Report [facility] [address], [address] [place] [address] OFFICE VISIT Date of Service: 04/19/24 MR#: [id number] Acct: [id number] Name: HELIO RUSSELL Rep #: [id number] : 2000 Provider: ALBIN solano Age/Sex: 23/F [place] [facility] [place] Status: Signed Intake Vital Signs 02/09/24 13:21 03/04/24 13:49 03/17/24 15:45 04/19/24 11:41 Height 5 ft 6 in 5 ft 6 in 5 ft 6 in 5 ft 6 in Weight: 203 lb 6 oz BMI 32.8 BP 114/72 Intake Visit Reasons: visit (obstetrics) Chief Complaint: 6 Week PP Oven Stripper Required: No Is patient in pain?: No [...] DAILY 08/05/23 04/19/24 History (Lamictal) : [facility] Medical History Infertility Psychiatric disorder Irregular menses Pre-conception counseling Generalized anxiety disorder Burning with urination IBS (irritable bowel syndrome) Seasonal allergies Surgical History [place] teeth extracted S/P tonsillectomy Family History Father [...] 3-4 times per week duration: 45-60 minutes/day jak/holiness: Advent seatbelt use: always do you feel safe [...] - full term 7lbs 2oz Male spinal [facility] Crystal Leonardo Shaun Delivery Date: 03/04/24 Last [...] for medication Feeding: Breast Menses resumed: No [place] since delivery: Yes Emotional Support: Yes Last [...] IVF Foll (more content not included)... Normal [facility] Strategic Alliances Manager Office Visit Reporton 03-17-2024 Strategic Alliances Manager Office Visit Report [facility] [address], [address] [place] [address] OFFICE VISIT Date of Service: 03/17/24 MR#: [id number] Acct: [id number] Name: HELIO RUSSELL Rep #: [id number] : 2000 Provider: ALBIN solano Age/Sex: 23/F [place] [facility] [place] Status: Signed Intake Vital Signs 02/09/24 13:21 03/04/24 13:49 03/10/24 12:55 03/17/24 15:45 03/17/24 15:45 Height 5 ft 6 in 5 ft 6 in 5 ft 6 in 5 ft 6 in 5 ft 6 in Intake Visit Reasons: 2 wk primary section Oven Stripper Required: No Is patient in pain?: No [...] (irritable bowel syndrome) Seasonal allergies Surgical History [place] teeth extracted S/P tonsillectomy Family History Father [...] 3-4 times per week duration: 45-60 minutes/day jak/holiness: Advent seatbelt use: always do you feel safe [...] 1558 Cosigner (more content not included)... Normal [facility] [address] [facility] [place] [address] OFFICE VISIT Date of Service: 03/10/24 MR#: [id number] Acct: [id number] Name: HELIO RUSSELL Rep #: [id number] : 2000 Provider: Vira Lowery NP Age/Sex: 23/F [place] [facility] [place]: Signed Intake Vital Signs 03/04/24 13:49 [...] (Updated 03/09/24 @ 00:02 by Background Daemon) [place] teeth extracted S/P tonsillectomy Family History Father [...] 3-4 times per week duration: 45-60 minutes/day jak/holiness: Advent seatbelt use: always do you feel safe [...] supply or (more content not included)... Normal [facility] CBC-Complete Blood Cnt No Di ffon 03-05-2024 HCT Normal 37-47 [facility] Comment on above: Order Comment: Comme nts: Day #1 Reason for Laboratory Test Result Comment: NO S PECIMEN COLLECTED. PATIENT DISCHARGED Performed By: #### L 100.0500 #### [facility] [address] [place], [address] HGB Normal 12.0-15.0 [facility] Comment on above: Order Comment: Comme nts: Day #1 Reason for Laboratory Test Result Comment: NO S PECIMEN COLLECTED. PATIENT DISCHARGED Performed By: #### L 100.0500 #### [facility] [address] [place], [address] MCH Normal 27.0-32.0 [facility] Comment on above: Order Comment: Comme nts: Day #1 Reason for Laboratory Test Result Comment: NO S PECIMEN COLLECTED. PATIENT DISCHARGED Performed By: #### L 100.0500 #### [facility] [address] [place], [address] MCHC Normal 32-36 [facility] Comment on above: Order Comment: Comme nts: Day #1 Reason for Laboratory Test Result Comment: NO S PECIMEN COLLECTED. PATIENT DISCHARGED Performed By: #### L 100.0500 #### [facility] [address] [place], [address] MCV Normal 81-99 [facility] Comment on above: Order Comment: Comme nts: Day #1 Reason for Laboratory Test Result Comment: NO S PECIMEN COLLECTED. PATIENT DISCHARGED Performed By: #### L 100.0500 #### [facility] [address] [place], [address] PLT Normal 150-450 [facility] Comment on above: Order Comment: Comme nts: Day #1 Reason for Laboratory Test Result Comment: NO S PECIMEN COLLECTED. PATIENT DISCHARGED Performed By: #### L 100.0500 #### [facility] [address] [place], [address] RBC Normal 4.2-5.4 [facility] Comment on above: Order Comment: Comme nts: Day #1 Reason for Laboratory Test Result Comment: NO S PECIMEN COLLECTED. PATIENT DISCHARGED Performed By: #### L 100.0500 #### [facility] [address] [place], [address] RDW CV Normal 11.6-14.6 [facility] Comment on above: Order Comment: Comme nts: Day #1 Reason for Laboratory Test Result Comment: NO S PECIMEN COLLECTED. PATIENT DISCHARGED Performed By: #### L 100.0500 #### [facility] [address] [place], [address] RDW SD Normal 35.1-43.9 [facility] Comment on above: Order Comment: Comme nts: Day #1 Reason for Laboratory Test Result Comment: NO S PECIMEN COLLECTED. PATIENT DISCHARGED Performed By: #### L 100.0500 #### [facility] [address] [place], [address] WBC Normal 4.4-11.0 [facility] Comment on above: Order Comment: Comme nts: Day #1 Reason for Laboratory Test Result Comment: NO S PECIMEN COLLECTED. PATIENT DISCHARGED Performed By: #### L 100.0500 #### [facility] [address] [place], [address] (ROM) Rupture Of Membraneson 03-04-2024 ROM Positive Abnormal Negative [facility] Comment on above: Result Comment: Amni otic fluid present indicates rupture of Membranes. RESULTS CALLED TO WHIT 03/04/24 Dutch Majano. REPORT READ BACK BY SAME . Performed By: #### M 100.505 #### [facility] [address] [place], [address] AST(SGOT)on 03-04-2024 AST [Catalytic activity/Vol] 20 U/L Normal 15-37 [facility] Comment on above: Performed By: #### L 501.1400, L501.1105, L501.0900, L501.4405, L501.4100 #### [facility] [address] [place], [address] Alanine Aminotransferas (SGP T)on 03-04-2024 ALT [Catalytic activity/Vol] 22 U/L Normal 13-56 [facility] Comment on above: Performed By: #### L 501.1400, L501.1105, L501.0900, L501.4405, L501.4100 #### [facility] [address] [place], [address] CBC W/Diff, Automatedon 11-04 24-2023 Absolute Lymph 1.77 X10 3/uL Normal 0.83-4.51 [facility] Comment on above: Performed By: #### Lorna GONZALEZ, L100.0100 #### [facility] [address] [place], [address] Absolute Neut 7.2 X10 3/uL Normal 2.0-7.7 [facility] Comment on above: Performed By: #### Lorna GONZALEZ, L100.0100 #### [facility] [address] [place], [address] Basophils/100 WBC (Bld) 0.2 % Normal 0-1 [facility] Comment on above: Performed By: #### Lorna GONZALEZ, L100.0100 #### [facility] [address] [place], [address] Eosinophils/100 WBC (Bld) 0.7 % Normal 0-5 [facility] Comment on above: Performed By: #### Lorna GONZALEZ, L100.0100 #### [facility] [address] [place], [address] Erythrocyte distribution width (RBC) [Ratio] 13.2 % Normal 11.6-14.6 [facility] Comment on above: Performed By: #### Lorna GONZALEZ, L100.0100 #### [facility] [address] [place], [address] Hematocrit (Bld) [Volume fraction] 33.3 % Low 37-47 [facility] Comment on above: Performed By: #### Lorna GONZALEZ, L100.0100 #### [facility] [address] [place], [address] Hemoglobin (Bld) [Mass/Vol] 11.2 g/dL Low 12.0-15.0 [facility] Comment on above: Performed By: #### Lorna GONZALEZ, L100.0100 #### [facility] [address] [place], [address] IG% 0.600 Normal 0.0-0.9 [facility] Comment on above: Result Comment: IG% - Immature Granulocytes (promyelocytes, myelocytes and metamyelocytes) > 1% indicates that a LEFT SHIFT is Present. Performed By: #### Lorna GONZALEZ, L100.0100 #### [facility] [address] [place], [address] Lymphocytes/100 WBC (Bld) 18.2 % Low 19-41 [facility] Comment on above: Performed By: #### Lorna GONZALEZ, L100.0100 #### [facility] [address] [place], [address] MCH (RBC) [Entitic mass] 29.3 pg Normal 27.0-32.0 [facility] Comment on above: Performed By: #### Lorna GONZALEZ, L100.0100 #### [facility] [address] [place], [address] MCHC (RBC) [Mass/Vol] 33.6 g/dL Normal 32-36 [facility] Comment on above: Performed By: #### Lorna GONZALEZ, L100.0100 #### [facility] [address] [place], [address] MCV (RBC) [Entitic vol] 87.2 fL Normal 81-99 [facility] Comment on above: Performed By: #### Lorna GONZALEZ, L100.0100 #### [facility] [address] [place], [address] Monocytes/100 WBC (Bld) 6.2 % Normal 0-10 [facility] Comment on above: Performed By: #### Lorna GONZALEZ, L100.0100 #### [facility] [address] [place], [address] Neutrophils/100 WBC (Bld) 74.1 % High 47-70 [facility] Comment on above: Performed By: #### Lorna GONZALEZ, L100.0100 #### [facility] [address] [place], [address] Nucleated RBC (Bld) [#/Vol] 0 10*3/uL Normal 0-5 [facility] Comment on above: Performed By: #### Lorna GONZALEZ, L100.0100 #### [facility] [address] [place], [address] Platelet mean volume (Bld) [Entitic vol] 11.9 fL Normal 6.2-12.0 [facility] Comment on above: Performed By: #### Lorna GONZALEZ, L100.0100 #### [facility] [address] [place], [address] Platelets (Bld) [#/Vol] 211 10*3/uL Normal 150-450 [facility] Comment on above: Performed By: #### Lorna GONZALEZ, L100.0100 #### [facility] [address] [place], [address] RBC (Bld) [#/Vol] 3.82 10*6/uL Low 4.2-5.4 [facility] Comment on above: Performed By: #### Lorna GONZALEZ, L100.0100 #### [facility] [address] [place], [address] RDW SD 41.1 fl Normal 35.1-43.9 [facility] Comment on above: Performed By: #### Lorna GONZALEZ, L100.0100 #### [facility] [address] [place], [address] WBC (Bld) [#/Vol] 9.7 10*3/uL Normal 4.4-11.0 [place] Comment on above: Performed By: #### B TS, L100.0100 #### [facility] [address] [place], [address] Discharge Instructionon 02-19 Discharge Instruction [facility] Medical Records Department [address] [place] [address] Instructions for Home/Discharge Instructions 03/04/24 1618 MR#: [id number] Acct: [id number] Name: HELIO RUSSELL Rep #: [id number] : 2000 23 From: Crystal Leonardo DO [...] Up With: Crystal Leonardo DO When: Call [phone] to make an appointment for an incision [...] DO CC: Dr. Marbella Park MD Signed [facility] H AND P Exam - OB/GYNon 02-19 H&P Exam - AGRICULTURAL AGENT [facility] Medical Records Department [address] [place] [address] H P Exam - AGRICULTURAL AGENT 03/04/24 1617 MR#: [id number] Acct: [id number] Name: HELIO RUSSELL Rep #: [id number] : 2000 23 From: Crystal Leonardo DO PCP: Dr. Marbella Park MD Status:ADM IN Location: [id number] HPI - General General Date of Admission: 03/04/24 HPI Narrative MARCELLUS RUSSELL, is a 23 y/o @ 38 weeks who presents to [facility] with spontaneous rupture of membranes and breech [...] Alcoholism Anxiety and depression Arthritis Surgical History [place] teeth extracted S/P tonsillectomy Social History adopted: [...] 3-4 times per week duration: 45-60 minutes/day jak/holiness: Advent seatbelt use: always do you feel safe [...] 170 -???-???-???- (more content not included)... Normal [facility] L509.8000on 03-04-2024 Syphilis Abs Non-Reactive Normal [facility] Comment on above: Performed By: #### M 100.505 #### [facility] [address] [facility] [facility] [place], [address] Operative Reporton 4 Operative Report [facility] Medical Records Department [address] [facility] [place] [address] Operative Report 03/04/24 1738 MR#: [id number] Acct: [id number] Name: JOOHELIOSHAD PINOY Rep #: [id number] : 2000 23 From: Crystal Leonardo DO PCP: Dr. Marbella Park MD Status:ADM IN Location: [id number] Assessment Plan (1) Breech presentation: COMMENT: unicornuate [...] 0d IVF TRNSFR 07/02 Final DENISE: 03/18/24 [place] Doctor Who Attended Delivery: Pascual Beth Operative [...] collected: No (more content not included)... Normal [facility] Protein+Creatinine Ratio,Uri neon 03-04-2024 PROT:CRE RATIO 130 mg/g CRE Normal 0-200 [facility] Comment on above: Performed By: #### L 501.1400, L501.1105, L501.0900, L501.4405, L501.4100 #### [facility] [address] [facility] [facility] [place], [address] Protein (U) [Mass/Vol] 15.8 mg/dL High <11.9 [facility] Comment on above: Performed By: #### L 501.1400, L501.1105, L501.0900, L501.4405, L501.4100 #### [facility] [address] [place], [address] UR CREAT 122.00 mg/dL Normal NO RANGE EST. [facility] Comment on above: Performed By: #### L 501.1400, L501.1105, L501.0900, L501.4405, L501.4100 #### [facility] [address] [place], [address] Serum Creatinine AND GFRon 1 05-04-2023 Creatinine [Mass/Vol] 0.54 mg/dL Low 0.55-1.02 [facility] Comment on above: Result Comment: The validity of the calculated GFR GFRAA in patients over 70 years has not been determined. Clinical correlation is essential. Performed By: #### L 501.1400, L501.1105, L501.0900, L501.4405, L501.4100 #### [facility] [address] [place], [address] ECRCL 181.97 ml/min Normal [facility] Comment on above: Performed By: #### L 501.1400, L501.1105, L501.0900, L501.4405, L501.4100 #### [facility] [address] [place], [address] EST GFR - AA 175 mL/min Normal >60 [facility] Comment on above: Result Comment: Afri can Barbadian GFR Calc Performed By: #### L 501.1400, L501.1105, L501.0900, L501.4405, L501.4100 #### [facility] [address] [place], [address] GFR/1.73 sq M.predicted among non-blacks MDRD (S/P/Bld) [Vol rate/Area] 145 mL/min/{1.73_m2} Normal >60 [facility] Comment on above: Result Comment: Non- GFR Calc Performed By: #### L 501.1400, L501.1105, L501.0900, L501.4405, L501.4100 #### [facility] [address] [place], [address] Type AND Screenon 03-04-2024 Ab SCREEN GEL Negative Normal [facility] Comment on above: Order Comment: S Performed By: #### B TS, L100.0100 #### [facility] [address] [place], [address] ABO and Rh group Nom (Bld) Blood group O Rh(D) positive Normal [facility] Comment on above: Order Comment: S Performed By: #### B TS, L100.0100 #### [facility] [address] [place], [address] Uric Acidon 03-04-2024 URIC 4.4 mg/dL Normal 2.6-6.0 [facility] Comment on above: Result Comment: The drugs N-Acetylcysteine and Metamizole may falsely depress this assay. Performed By: #### L 501.1400, L501.1105, L501.0900, L501.4405, L501.4100 #### [facility] [address] [place], [address] Progress Noteon 09-03-2023 Fire Loss Prevention Engineer Authentication Interface Message Text [facility] MATERNAL- MEDICINE CONSULT Referring/Requestin g Provider: [...] ovaries on RGI evaluation. Normal bilateral kidneys [place] radiology evaluation. No vaginal bleeding. No OB [...] Dr. Moody and plan to delivery at [facility], which is 5 mins from their home. [...] Guadalupe Canchola, Medication Sig Dispense Refill Vit w/Ig-Aefdeeksz-CB (PNV PO) Take by mouth daily lamoTRIgine [...] this inform (more content not included)... Normal [facility] Chlamydia trachomatis rRNA d etection by probe and target amplification methodOrdered By: Crystal Zimmerman on 08-08-2023 C. trachomatis rRNA EDMOND+probe Ql (Unsp spec) Negative Negative [facility] Culture, urineOrdered By: Jared Zimmerman on 08-08-2023 Bacteria identified Cx Nom (U) Positive [facility] - Microbiology an d Antimicrobial susceptibilityOrdered By: Crystal Zimmerman on 08-08-2023 N. gonorrhoeae DNA EDMOND+probe Ql (Unsp spec) Negative Negative [facility] Comment on above: Performed at: =G - [facility] [address], [place] [id number] Director: Ashley King MD, Phone: [phone] QUANTIFERON TB INCUBATED [CC L]on 02-12-2023 Mitogen minus Nil >9.98 Normal >=0.50 [facility] Comment on above: Performed By: #### 2 39506 #### [facility],[address] [place] [address] TB Gamma Interferon Negative Normal [facility] Comment on above: Performed By: #### 2 88213 #### [facility],[address] [place] [address] TB Gamma Interpretation Infection with M . tuberculosis complex is unlikely. If latent tuberculosis infec Normal [facility] Comment on above: Result Comment: [facility] [address] [place] [address] Isaac Correa III, M.D. [id number] Performed By: #### 2 03363 #### [facility],[address] [place] [address] TB NIL 0.02 IU/mL Normal <=8.00 [facility] Comment on above: Performed By: #### 2 93086 #### [facility],[address] [place], [place] [id number] TB1 Ag minus Nil <0.00 Normal <0.35 [facility] Comment on above: Performed By: #### 2 11389 #### [facility],[address] [place], [place] [id number] TB2 Ag minus Nil <0.00 Normal <0.35 [facility] Comment on above: Performed By: #### 2 57864 #### [facility],[address] [place], [place] [id number] HEP B SURFACE AB, QUANT [CCL ]on 02-07-2023 HepB Surface Ab,Qual Positive Normal [facility] Comment on above: Result Comment: Cons istent with serological evidence of immunity to Hepatitis B Virus. Performed By: #### 2 68098 #### [facility],[address] [place] [address] 05944 HepB SurfaceAb,Quant >1000.00 Normal [facility] Comment on above: Result Comment: <8 m IU/mL: No serological evidence of immunity to Hepatitis B Virus. >/= 8 to <12 mIU/mL: No serological evidence of immunity to Hepatitis B Virus. >/= 12 mIU/mL: Consistent with serological evidence of immunity to Hepatitis B Virus. [place] [id number] Isaac Correa III, M.D. [id number] Performed By: #### 2 49905 #### [facility],[address] [place] [address] 42233 MEASLES IGG ANTIBODY [CCL]on 02-07-2023 Measles IgG, Qual Positive Normal Positive [facility] Comment on above: Result Comment: The result suggests recent or past exposure to Measles virus or Measles vaccination. The current test does not detect neutralizing antibodies. Positive result may also be seen due to presence of passively-transferred antibodies. Please [place] [address] Isaac Correa III, M.D. [id number] Performed By: #### 2 05297 #### [facility],[address] [place] [address] 98307 MUMPS IGG AB [CCL]on 023 Mumps IgG, Qual Positive Normal Positive [facility] Comment on above: Result Comment: The result suggests recent or past exposure to Mumps virus or Mumps vaccination. The current test does not detect neutralizing antibodies. Positive result may also be seen due to presence of passively-transferred antibodies. Please correlate with patient's history. [facility] [employer] [facility] [place] [address] Isaac Correa III, M.D. [id number] Performed By: #### 2 98985 #### [facility],[address] [place] [address] 61694 RUBELLA IgG ANTIBODY [CCL]on 02-07-2023 Rubella IgG Ab, Qual Positive Normal Positive [facility] Comment on above: Result Comment: The result suggests recent or past exposure to Rubella virus or history of Rubella vaccination. Positive result may also be seen due to presence of passively-transferred antibodies. Please correlate with patient's history. [facility] [address] [place] [address] Isaac Correa III, M.D. [id number] Performed By: #### 2 53275 #### [facility],[address] [place] [address] 46111 URINE COTININE TEST [[facility]]on 02-06-2023 COTININE Negative Normal NORMAL: NEGATIVE [facility] Comment on above: Result Comment: The COT [...] after nicotine use. Performed By: #### 2 [id number] #### [facility],[address] [place] [address] 68691 COVID-19 virus antigen assay Ordered By: Salvador Marcus on 01-26-2023 SARS-CoV-2 (COVID-19) Ag IA.rapid Ql (Resp) [facility] Basophil percentageOrdered B y: Ca Cesar on 01-20-2023 Bilirubin [Mass/Vol] 0.60 mg/dL 0.20-1.00 [facility] Comment on above: For patients on eltr ombopag therapy, use of Dimension [place] TBIL is not recommended. Chloride [Moles/Vol] 106 mmol/L 98-107 [facility] Glucose [Mass/Vol] 93 mg/dL 74-106 [place] Potassium [Moles/Vol] 3.6 mmol/L 3.5-5.1 [facility] Protein [Mass/Vol] 7.1 g/dL 6.4-8.2 [place] Sodium [Moles/Vol] 139 mmol/L 136-145 [place] Testosterone [Mass/Vol] 31.63 ng/dL [facility] Comment on above: CENTRAL 90% REFERENC [...] Ab+HIV1 p24 Ag IA Ql Non-Reactive Nonreactive [facility] Laboratory - Chemistry and C hemistry - challengeOrdered By: Ca Cesar on 01-20-2023 ALP [Catalytic activity/Vol] 58 U/L 45-117 [facility] ALT [Catalytic activity/Vol] 19 U/L 13-56 [facility] CO2 [Moles/Vol] 27.0 mmol/L 21.0-32.0 [facility] Globulin (S) [Mass/Vol] 3.1 g/dL 2.2-4.2 [facility] Urea nitrogen/Creatinine [Mass ratio] 11.7 mg/mg 10-20 [facility] Neisseria gonorrhoeae genita l PCROrdered By: Ca Cesar on 01-20-2023 N. gonorrhoeae DNA EDMOND+probe Ql (Genital specimen) [facility] No Panel InformationOrdered By: Ca Cesar on 01-20-2023 Chlamydia trachomatis (PCR) [facility] Dehydroepiandrosterone Sulfate 254.0 ug/dL 110.0-431.7 [facility] Estimated GFR (MDRD) Amer 105 mL/min >60 [facility] Comment on above: GFR Calc Estimated GFR (MDRD) Non-Af Amer 86 mL/min >60 [facility] Comment on above: Non- GFR Calc Hepatitis B Surface Antigen Non-Reactive Nonreactive [facility] Hepatitis C Antibody Non-Reactive Nonreactive [facility] Comment on above: Non Reactive: < 0.8 Equivocal: >/= 0.8 to < 1.0 Reactive: >/= 1.0The CDC recommends that a reactive/equivocal HCV antibody result be followed up by the HCV Nucleic Acid Amplificationtest (308827) Rubella IgG Antibody Reactive Nonreactive [facility] Comment on above: Antibody Results Int erpretation of Immune Status Non Reactive Presumed Non-Immune Equivocal Equivocal Reactive Presumed Immune Thyroid Stimulating Hormone (TSH) 1.25 uIU/mL 0.358-3.74 [facility] Serum Treponema species anti body detectionOrdered By: Ca Cesar on 01-20-2023 Treponema sp Ab Ql (S) Non-Reactive [facility] Serum Varicella zoster virus IgG antibody assay by immunoassay (units/volume)Ordered By: Ca Cesar on 01-20-2023 VZV IgG IA Qn (S) 2524 index Immune >165 [place] Comment on above: Negative <135 Equivo camila 135 - 165 Positive >165A positive result generally indicates exposure to thepathogen or administration of specific immunoglobulins,but it is not indication of active infection or stageof disease.Performed at: - [employer] [id number] Director: David Baez PhD, Phone: [phone] Serum or plasma 17-hydroxypr ogesterone measurement (mass/volume)Ordered By: Ca Cesar on 01-20-2023 17-Hydroxyprogesterone [Mass/Vol] 45 ng/dL . [facility] Comment on above: Adult Female Follicu lar 15 - 70 Luteal 35 - 290Performed at: - [facility] [address] [id number] Director: Francisco J Mercer MD, Phone: [phone] Serum or plasma albumin amairani urement (mass/volume)Ordered By: Ca Cesar on 01-20-2023 Albumin [Mass/Vol] 4.0 g/dL 3.2-5.0 [place] Serum or plasma albumin/glob ulin mass ratioOrdered By: Ca Cesar on 01-20-2023 Albumin/Globulin [Mass ratio] 1.3 {ratio} 0.9-2.4 [facility] Serum or plasma calcium amairani urement (mass/volume)Ordered By: Ca Cesar on 01-20-2023 Calcium [Mass/Vol] 8.8 mg/dL 8.5-10.1 [place] Serum or plasma creatinine m easurement (mass/volume)Ordered By: Ca Cesar on 01-20-2023 Creatinine [Mass/Vol] 0.85 mg/dL 0.55-1.02 [facility] Comment on above: The validity of the calculated GFR & GFRAA in patients over 70 years has not been determined. Clinical correlation is essential. Serum or plasma prolactin me asurement (mass/volume)Ordered By: Ca Cesar on 01-20-2023 Prolactin [Mass/Vol] 22.6 ng/mL [facility] Comment on above: NORMAL REFERENCE RAN GES FEMALE NON- 2.2 - 30.3 ng/mL 8.1 - 347.6 ng/mL POST-MENOPAUSAL 0.7 - 31.5 ng/mL MALE 2.5 - 17.4 ng/mL Serum or plasma urea nitroge n measurement (mass/volume)Ordered By: Ca Cesar on 01-20-2023 Urea nitrogen [Mass/Vol] 10 mg/dL 7-18 [facility] Thin prep Papanicolaou smear with manual screeningOrdered By: Ca Cesar on 01-20-2023 Thin prep Papanicolaou smear with manual screening 11 U/L 15-37 [facility] Thin prep Papanicolaou smear with manual screening 6 5-15 [facility] Whole blood hemoglobin A1c/t otal hemoglobin ratio (mass fraction)Ordered By: Ca Cesar on 01-20-2023 HbA1c (Bld) [Mass fraction] 5.0 % 3.8-5.6 [facility] Comment on above: Normal < 5.7 % Predi abetic 5.7 - 6.4 % Diabetic >or= 6.5 % Please note range changes. COVID-19 virus antigen assay Ordered By: Salvador Marcus on 01-15-2023 SARS-CoV-2 (COVID-19) Ag IA.rapid Ql (Resp) [facility] COVID-19 virus antigen assay Ordered By: Salvador Marcus on 01-03-2023 SARS-CoV-2 (COVID-19) Ag IA.rapid Ql (Resp) [facility] COVID-19 virus antigen assay Ordered By: Dr. Marcus on 07-30-2022 SARS-CoV-2 (COVID-19) Ag IA.rapid Ql (Resp) [facility] COVID-19 virus antigen assay Ordered By: Dr. Marcus on 07-17-2022 SARS-CoV-2 (COVID-19) Ag IA.rapid Ql (Resp) [facility] Laboratory - Chemistry and C hemistry - challengeOrdered By: Elsie Calvin on 07-13-2022 Free T4 [Mass/Vol] 1.28 ng/dL 0.76-1.46 [place] No Panel InformationOrdered By: Elsie Calvin on 07-13-2022 Dehydroepiandrosterone Sulfate 220.0 ug/dL 110.0-431.7 [facility] Thyroid Stimulating Hormone (TSH) 0.92 uIU/mL 0.358-3.74 [facility] Serum or plasma calcitriol m easurement (mass/volume)Ordered By: Elsie Calvin on 07-13-2022 1,25-dihydroxyvitamin D3 [Mass/Vol] 41.2 pg/mL 24.8-81.5 [facility] Comment on above: Performed at: [employer] [address] [id number] Director: Francisco J Mercer MD, Phone: [phone] Serum or plasma testosterone free measurement (mass/volume)Ordered By: Elsie Calvin on 07-13-2022 Testosterone Free [Mass/Vol] 0.5 pg/mL 0.0-4.2 [facility] Comment on above: Performed at: [employer] [address] [id number] Director: David Baez PhD, Phone: [phone] at: [employer] [facility] [address] [id number] Director: Francisco J Mercer MD, Phone: [phone] Absolute lymphocyte countOrd ered By: HEALTH ASSESSMENT on 05-31-2022 Lymphocytes Auto (Unsp spec) [#/Vol] 2.69 10*3/uL 0.83-4.51 [facility] Absolute reticulocyte countO rdered By: HEALTH ASSESSMENT on 05-31-2022 Reticulocytes (Bld) [#/Vol] 0.00 10*3/uL 0-5 [facility] Basophil percentageOrdered B y: HEALTH ASSESSMENT on 05-31-2022 Basophil percentage 4.3 mg/dL 2.5-4.9 [facility] Bilirubin [Mass/Vol] 0.60 mg/dL 0.20-1.00 [facility] Comment on above: For patients on eltr ombopag therapy, use of Dimension [place] TBIL is not recommended. Chloride [Moles/Vol] 105 mmol/L 98-107 [facility] Cholesterol [Mass/Vol] 171 mg/dL <200 [facility] Comment on above: <200 mg/dL Desirable 200-240 mg/dL Borderline >240 mg/dL High Risk Glucose [Mass/Vol] 102 mg/dL 74-106 [place] Comment on above: Fasting Glucose resu lt from 100 to 125 mg/dL suggests IMPAIRED HOMEOSTASIS per A.D.A. criteria. LDH [Catalytic activity/Vol] 236 U/L 84-246 [facility] Neutrophils (Bld) [#/Vol] 5.2 10*3/uL 2.0-7.7 [facility] Potassium [Moles/Vol] 3.7 mmol/L 3.5-5.1 [facility] Protein [Mass/Vol] 6.8 g/dL 6.4-8.2 [place] Sodium [Moles/Vol] 139 mmol/L 136-145 [place] Triglyceride [Mass/Vol] 52 mg/dL <199 [facility] Comment on above: The drugs N-Acetylcy steine and Metamizole may falsely depress this assay.Serum Triglycerides Reference Interval Normal <150 mg/dL Borderline high 150 - 199 mg/dL High 200 - 499 mg/dL Very High > or = 500 mg/dL WBC (Bld) [#/Vol] 8.6 10*3/uL 4.4-11.0 [place] Blood erythrocytes count (nu mber/volume)Ordered By: HEALTH ASSESSMENT on 05-31-2022 RBC (Bld) [#/Vol] 4.11 10*6/uL 4.2-5.4 [facility] Blood hemoglobin measurement (mass/volume)Ordered By: HEALTH ASSESSMENT on 05-31-2022 Hemoglobin (Bld) [Mass/Vol] 12.3 g/dL 12.0-15.0 [facility] Blood platelet mean volumeOr dered By: HEALTH ASSESSMENT on 05-31-2022 Platelet mean volume (Bld) [Entitic vol] 10.7 fL 6.2-12.0 [facility] Determination of erythrocyte mean corpuscular volume (MCV)Ordered By: HEALTH ASSESSMENT on 05-31-2022 MCV (RBC) [Entitic vol] 92.5 fL 81-99 [facility] Direct bilirubinOrdered By: HEALTH ASSESSMENT on 05-31-2022 Bilirubin.direct [Mass/Vol] 0.14 mg/dL 0.00-0.30 [facility] Hematocrit Auto (Bld) [Volum e fraction]Ordered By: HEALTH ASSESSMENT on 05-31-2022 Hematocrit (Bld) [Volume fraction] 38.0 % 37-47 [facility] Laboratory - Chemistry and C hemistry - challengeOrdered By: HEALTH ASSESSMENT on 05-31-2022 ALP [Catalytic activity/Vol] 78 U/L 45-117 [facility] ALT [Catalytic activity/Vol] 27 U/L 13-56 [facility] Cholesterol.total/Cholest amanda in HDL [Mass ratio] 2.10 {ratio} [facility] CO2 [Moles/Vol] 29.0 mmol/L 21.0-32.0 [facility] Globulin (S) [Mass/Vol] 2.9 g/dL 2.2-4.2 [facility] Urea nitrogen/Creatinine [Mass ratio] 13.7 mg/mg 10-20 [facility] Laboratory - Hematology and Cell countsOrdered By: HEALTH ASSESSMENT on 05-31-2022 Erythrocyte distribution width (RBC) [Entitic vol] 41.9 fL 35.1-43.9 [place] Erythrocyte distribution width (RBC) [Ratio] 12.3 % 11.6-14.6 [facility] MCH (RBC) [Entitic mass] 29.9 pg 27.0-32.0 [facility] Nucleated RBC/100 WBC (Bld) [Ratio] 0 % 0-5 [facility] MCHC Auto (RBC) [Mass/Vol]Or dered By: HEALTH ASSESSMENT on 05-31-2022 MCHC (RBC) [Mass/Vol] 32.4 g/dL 32-36 [facility] No Panel InformationOrdered By: HEALTH ASSESSMENT on 05-31-2022 Estimated GFR (MDRD) Amer 93 mL/min >60 [facility] Comment on above: GFR Calc Estimated GFR (MDRD) Non-Af Amer 77 mL/min >60 [facility] Comment on above: Non- GFR Calc Platelets bldOrdered By: [facility] ASSESSMENT on 05-31-2022 Platelets (Bld) [#/Vol] 238 10*3/uL 150-450 [facility] Segmented neutrophils/100 WB C Auto (Bld)Ordered By: HEALTH ASSESSMENT on 05-31-2022 Segmented neutrophils/100 WBC (Bld) 60.1 % 47-70 [facility] Serum or plasma albumin amairani urement (mass/volume)Ordered By: HEALTH ASSESSMENT on 05-31-2022 Albumin [Mass/Vol] 3.9 g/dL 3.2-5.0 [place] Serum or plasma albumin/glob ulin mass ratioOrdered By: HEALTH ASSESSMENT on 05-31-2022 Albumin/Globulin [Mass ratio] 1.3 {ratio} 0.9-2.4 [facility] Serum or plasma calcium amairani urement (mass/volume)Ordered By: HEALTH ASSESSMENT on 05-31-2022 Calcium [Mass/Vol] 8.9 mg/dL 8.5-10.1 [place] Serum or plasma cholesterol in HDL measurement (mass/volume)Ordered By: HEALTH ASSESSMENT on 05-31-2022 Cholesterol in HDL [Mass/Vol] 83 mg/dL >40 [facility] Comment on above: The drugs N-Acetylcy steine and Metamizole may falsely depress this assay. Reference Range HDL <40 mg/dL Low HDL Cholesterol HDL >or= 60 mg/dL High HDL Cholesterol Serum or plasma cholesterol in VLDL measurement (mass/volume)Ordered By: HEALTH ASSESSMENT on 05-31-2022 Cholesterol in VLDL [Mass/Vol] 10 mg/dL 5-40 [facility] Serum or plasma creatinine m easurement (mass/volume)Ordered By: HEALTH ASSESSMENT on 05-31-2022 Creatinine [Mass/Vol] 0.95 mg/dL 0.55-1.02 [facility] Comment on above: The validity of the calculated GFR & GFRAA in patients over 70 years has not been determined. Clinical correlation is essential. Serum or plasma low density lipoprotein (LDL) cholesterol measurement (mass/volume)Ordered By: HEALTH ASSESSMENT on 05-31-2022 Cholesterol in LDL [Mass/Vol] 78 mg/dL 0-130 [facility] Serum or plasma urea nitroge n measurement (mass/volume)Ordered By: HEALTH ASSESSMENT on 05-31-2022 Urea nitrogen [Mass/Vol] 13 mg/dL 7-18 [facility] Serum or plasma uric acid me asurement (mass/volume)Ordered By: HEALTH ASSESSMENT on 05-31-2022 Urate [Mass/Vol] 3.5 mg/dL 2.6-6.0 [facility] Comment on above: The drugs N-Acetylcy steine and Metamizole may falsely depress this assay. Thin prep Papanicolaou smear with manual screeningOrdered By: HEALTH ASSESSMENT on 05-31-2022 Thin prep Papanicolaou smear with manual screening 47 U/L 15-37 [facility] Thin prep Papanicolaou smear with manual screening 5 5-15 [facility] COVID-19 virus antigen assay Ordered By: Dr. Marcus on 05-02-2022 SARS-CoV-2 (COVID-19) Ag IA.rapid Ql (Resp) [facility] No Panel InformationOrdered By: Dr. Naranjo on 03-26-2022 Miscellaneous Test See comment [facility] Comment on above: Sent directly to [facility] per ordering physician. COVID-19 virus antigen assay Ordered By: Dr. Marcus on 02-26-2022 SARS-CoV-2 (COVID-19) Ag IA.rapid Ql (Resp) [facility] CNOVon 08-11-2018 CNOV Office Visit ([facility]) ---- MARGAUX CALDERÓN ([id number]) 2000 F Date Time Provider Department 08/11/18 8:15 PM SHARI JACKSON ([facility]) [facility] During your visit today, we recorded the following information about you: Temperature Pulse Respiration Blood pressure 98.1 degrees 76/minute 16/minute 118/72 Weight 72.1 kg Shari Jackson APRN.[facility] 08/11/2018 8:38 PM Addendum Subjective HPI [...] Date Reviewed: 08/11/2018 Reviewed by: Shari Gonzalez ([facility]) Renetta - Fully Assessed Reason for Visit: [...] CULTURE AND GRAM STAIN [SQWCUL] Order #: [id number] fluconazole (DIFLUCAN) 150 mg tabletTake 1 tablet [...] by RENETTA VEGA.SHARI LAFLEUR on 08/11/18 Normal [facility] PROGRESSon 08-11-2018 Protein mass conc HNO ID: [id number] Author: Shari Jackson Service: ? Author Type: [...] agreement with the above plan. Shari Jackson, POOL COORDINATOR.INTERVENTIONAL TECHNOLOGIST Normal [facility] Wound Culture/Stainon 2018 Wound Culture/Stain Sp. Request/Comment: - Swab Smear Result - No organisms seen No Polymorphonuclear Leukocytes Culture Result - No growth 2 days For wound culture, tissue or aspirates are superior to swab specimens. If a swab must be used, eSwab is preferred (Lucero no. [id number]). Normal [facility] Comment on above: Performed By: #### W CUL ####[facility] [place], [place] [phone] XR UPPER GI W SMALL BOWEL [facility] 05-26-2018 XR UPPER GI W SMALL BOWEL [...] IS NORMAL IN CALIBER AND MUCOSAL PATTERN. Chair Spring Assembler: STEPHANIE Transcribe Date/Time: May 26 2018 9:43A Dictated by : MARLEN VAZQUEZ MD This examination was interpreted and the report reviewed and electronically signed by: MARLEN VAZQUEZ MD on May 28 2018 4:56PM EST [id number] [facility] CNCOon 05-20-2018 CNCO Letter Text Dear Margaux Calderón: How to activate your [facility] [employer] Account 1. Visit the [employer] Signup page at [email or web address] 2. Identify yourself using your one-time use activation code: [email or web address] 3. Follow the on-screen prompts to choose [...] information on the Identify Yourself Form at [email or web address] , click Next. Create your login and password, choose a [employer] ID and password that will be easy for you to use, but impossible for anyone else to guess. Pick a security question that will assist you in the event you forget your password the next time you log-on. If you have difficulty activating your account, please call our [employer] helpline at [phone] or toll free at . We hope you enjoy using [employer]! Kindest Regards, [facility] [employer] Normal [facility] CNOVon 05-20-2018 CNOV Office Visit ([facility]) ---- MARGAUX CALDERÓN ([id number]) 2000 F Date Time Provider Department 05/20/18 8:20 AM MOHIT PADILLA ([facility]) [facility] During your visit today, we recorded the following information about you: Pulse Blood pressure Weight Height 77/minute 101/68 70.1 kg 1.651 m Mohit Padilla RN APRN.INTERVENTIONAL TECHNOLOGIST 05/20/2018 9:22 AM Signed Margaux Calderón a [...] that is located in the lower abdomen. CUSTOMER QUALITY ENGINEER: Negative for abnormal vaginal bleeding, abnormal vaginal [...] with greater than 50% of the total [id number]-vg-[id number] time of the visit in counseling and coordination of care. Mohit Padilla RN POOL COORDINATOR.CIARRA Padilla RN APRN.CIARRA 05/20/2018 8:55 AM Signed We will give you the results of the blood work via [employer]. Continue gluten free. Knock out dairy when having an episode. Please follow the instructions for the test that looks at your stomach and small bowel. It will take a day or two after the test for us to get the results. Call [phone], and ask to speak to a nurse in GI, if you have any questions or concerns in the mean time. Referring Provider: FLASH JACOBSON ([facility]) [[id number]] Allergies As of Date: 05/20/2018 Noted Allergy [...] Nausea [R11.0] Order(s):TSH BLD [SQTSH] Order #: [id number] FUTURE T3 BLD [SQT3] Order #: [id number] FUTURE T4 FREE/FREE THYROX [SQFT4] Order #: [id number] FUTURE XR UPPER GI W SMALL BOWEL SERIES [5784275] Order #: [id number] FUTURE Prescriptions as of 05/20/2018 Sig: ONDANSETRON [...] the results of the blood work via [employer]. Continue gluten free. Knock out dairy when having an episode. Please follow the instructions for the test that looks at your stomach and small bowel. It will take a day or two after the test for us to get the results. Call [phone], and ask to speak to a nurse in GI, if you have any questions or concerns in the mean time. Medications Discontinued During This Encounter dicyclomine (BENTYL) 10 mg capsule 40 c* 2 11/17/2017 05/20/2018 Route: ORAL Sig: Take 1 capsule by mouth before meals and at bedtime. Disc: Changing Therapy/Dosage Form Encounter Status:Closed by MOHIT PADILLA INTERVENTIONAL TECHNOLOGIST on 05/20/18 Normal [facility] Free T4on 05-20-2018 T4 free mass conc 1.3 ng/dL Normal 0.9-1.7 [facility] Comment on above: Performed By: #### T SH, FT4, T3 ####[facility] [address] [place], [place] [phone] HISTORY PHYSICALon 9 HISTORY PHYSICAL HNO ID: [id number] Author: Mohit (Aircraft Painter Apprentice) Valerie Service: (none) Author Type: Nurse Practitioner [...] that is located in the lower abdomen. CUSTOMER QUALITY ENGINEER: Negative for abnormal vaginal bleeding, abnormal vaginal [...] with greater than 50% of the total gnbb-we-bksa time of the visit in counseling and coordination of care. Mohit Padilla RN POOL COORDINATOR.INTERVENTIONAL TECHNOLOGIST Normal [facility] T3on 05-20-2018 T3 127 ng/dL Normal 79-165 [facility] Comment on above: Performed By: #### T SH, FT4, T3 ####[facility] [place], [place] [phone] TSHon 05-20-2018 Thyrotropin Qn 2.010 uU/mL Normal 0.510-4.300 Arnulfo palacio [facility] Comment on above: Result Comment: If t he patient is , TSH reference range varies by gestational period: First Trimester 0.100-2.500 uU/mL Second Trimester 0.200-3.000 uU/mL Third Trimester 0.300-3.000 uU/mL References: 1. Call L, Adam M, Jad EK, et al. Management of Thyroid Dysfunction during and : An Endocrine Society Clinical Practice Guideline. J Clin Endocrinol Metab, 2012:97:4667-8183. 2. Allen QUIN[place]NA. Overview of thyroid disease in . UpToDate. 2016. Accessed on October 06, 2015. Performed By: #### T SH, FT4, T3 ####[facility] [address] [place], [place] [phone] CNOVon 05-11-2018 CNOV Office Visit ([facility]) ---- MARGAUX CALDERÓN ([id number]) 2000 F Date Time Provider Department 05/11/18 7:40 AM FLASH JACOBSON ([facility]) [facility] During your visit today, we [...] on in your abdomen. Mineral oil and Tuckerman oil should also be avoided. Should I [...] Upset Date Reviewed: 05/11/2018 Reviewed by: Flash ([facility]) Indira - Fully Assessed Reason for Visit: Intestinal Disorder [422] Primary Visit Diagnosis:Chronic constipation [K59.09] Other Visit Diagnoses:Mucus in stool [R19.5] UTI symptoms [R39.9] Order(s):CONSULT TO GASTROENTEROLOGY [1994] Order #: [id number]: 1 UA DIP B/O [2884869] Order #: [id number] COMP METABOLIC PANEL [SQCMP] Order #: [id number] FUTURE URINE CULTURE [SQURCUL] Order #: [id number] nitrofurantoin monohydrate and macrocrystal (MACROBID) 100 mg [...] on in your abdomen. Mineral oil and Tuckerman oil should also be avoided. Should I [...] by FLASH JACOBSON CNP on 05/11/18 Normal [facility] Comp Metabolic Panelon 05-11 Albumin mass conc 4.8 g/dL Normal 3.9-4.9 [facility] Comment on above: Performed By: #### C MP ####[place] [address] [address] [place], [place] [phone] ALP enzyme act/vol 54 U/L Normal 34-123 [facility] Comment on above: Performed By: #### C MP ####[place] [address] [address] [place], [place] [phone] ALT enzyme act/vol 13 U/L Normal 7-38 [facility] Comment on above: Performed By: #### C MP ####[place] [address] [address] [place], [place] [phone] Anion gap molar conc 14 mmol/L Normal 9-18 [facility] Comment on above: Performed By: #### C MP ####[place] [address] [address] [place], [place] [phone] AST enzyme act/vol 19 U/L Normal 13-35 [facility] Comment on above: Performed By: #### C MP ####[place] [address] [address], [place] [phone] Bilirubin mass conc 0.6 mg/dL Normal 0.2-1.[address] [facility] Comment on above: Performed By: #### C MP ####[place] [address] [address] [place], [place] [phone] Calcium mass conc 9.5 mg/dL Normal 8.5-10.2 [facility] Comment on above: Performed By: #### C MP ####[place] [address] [address], [place] [phone] Chloride molar conc 101 mmol/L Normal 97-[address] [facility] Comment on above: Performed By: #### C MP ####[place] [address] [address], [place] [phone] CO2 molar conc 23 mmol/L Normal 22-30 [facility] Comment on above: Performed By: #### C MP ####[facility] [place], [place] [phone] Creatinine mass conc 0.76 mg/dL Normal 0.58-0.96 [facility] Comment on above: Performed By: #### C MP ####[address] [phone] eGFR- Amer. >60 Normal [facility] Comment on above: Performed By: #### C MP ####[address] [phone] GFR/1.73 sq M predicted among non-blacks MDRD vol rate/area (S/P/Bld) mL/min/{1.73_m2} Normal [facility] Comment on above: Result Comment: eGFR (Estimated [...] actual GFR. Performed By: #### C MP ####[place] [id number] [place], [place] [phone] Glucose mass conc 91 mg/dL Normal 74-99 [facility] Comment on above: Result Comment: The [place] Diabetes Association (ADA) provides guidance for cutoff [...] Standards of Medical Care in Diabetes 2016, [place] [employer]. Diabetes Care. 2016.39(Suppl 1). Performed By: #### C MP ####[address] [phone] Potassium molar conc 3.8 mmol/L Normal 3.7-5.1 [facility] Comment on above: Performed By: #### C MP ####[address] [phone] Protein mass conc 7.1 g/dL Normal 6.3-8.0 [facility] Comment on above: Performed By: #### C MP ####[address] [phone] Sodium molar conc 138 mmol/L Normal 136-144 [facility] Comment on above: Performed By: #### C MP ####[address] [phone] Urea nitrogen mass conc 14 mg/dL Normal 7-21 [facility] Comment on above: Performed By: #### C MP ####[address] [phone] PROGRESSon 05-11-2018 Protein mass conc HNO ID: [id number] Author: Flash (Josh Jacobson Service: (none) Author [...] ORAL CAP F/u as needed Flash Jacobson APRN.INTERVENTIONAL TECHNOLOGIST Normal [facility] Urine Cultureon 05-11-2018 Bacteria identified Cx Nom (U) Sp. Request/Comment: - Specimen received in preservative Culture Result - <10,000 CFU/ml Normal urogenital swathi Normal [facility] Comment on above: Performed By: #### U RCUL ####[facility] [address] [place], [place] [phone] Bact/Cand Vag Grm Ston 03-26 INR Coag RelTime (Bld) Sp. Request/Comment: - Swab Smear Result - BACTERIAL VAGINOSIS RESULT: Stain results consistent with bacterial vaginosis. --> ABNORMAL ALERT No Yeast observed Rare Polymorphonuclear leukocytes Rare --> ABNORMAL ALERT Clue cells present --> ABNORMAL ALERT Many Epithelial cells Critically abnormal [facility] Comment on above: Performed By: #### B VCNSM #### [facility] [address] [place], [place] [address] CNOVon 03-25-2018 CNOV Office Visit (WOOB) ---- MARGAUX CALDERÓN ([id number]) 2000 F Date Time Provider Department 03/25/18 [...] external genitalia normal, normal Bartholin's glands, urethra, River Ridge's glands, no vulvar lesions, no cervical lesions, [...] patient. -will call with results. Catalina Woody APRN.INTERVENTIONAL TECHNOLOGIST Referring Provider: SELF [200] Allergies As of [...] Order(s):GC/CHLAMYD IA DNA DET [SQGCCAMP] Order #: [id number] BACT/GRETA VAG GRAM STAIN [SQBVCNSM] Order #: [id number] FUTURE T VAGINALIS AMPLIFICATION [SQTRVAMP] Order #: [id number] FUTURE Prescriptions as of 03/25/2018 Sig: DICYCLOMINE [...] Status:Closed by CATALINA WOODY on 03/25/18 Normal [facility] GC/Chlamydia Amplifon 2017 Chlamydia Amplif Negative Normal [facility] Comment on above: Performed By: #### G CCT #### [facility] [employer] [address] [place] [address] GC Amplification Negative Normal [facility] Comment on above: Performed By: #### G CCT #### [facility] [address] [place] [address] GC/Chlam Amp Source Cervix Normal [facility] Comment on above: Performed By: #### G CCT #### [facility] [address] [place] [address] PROGRESSon 03-25-2018 Protein mass conc HNO ID: [id number] Author: Catalina (Applied Computer Science Professor) Annalise Service: (none) Author Type: Nurse Practitioner [...] external genitalia normal, normal Bartholin's glands, urethra, [place]'s glands, no vulvar lesions, no cervical lesions, [...] call with results. Catalina Woody APRN.CIARRA Normal [facility] Trich vaginalis Amplon 03-25 T vag Amplification Negative Normal [facility] Comment on above: Performed By: #### T RVAMP #### [facility] [address] [place] [address] Trich vag Amp Source Cervix Normal [facility] Comment on above: Performed By: #### T RVAMP #### [facility] [address] [place] [address] CNOVon 11-17-2017 CNOV Office Visit (FAMPWS) ---- MARGAUX CALDERÓN ([id number]) 2000 F Date Time Provider Department 11/17/17 7:40 AM FLASH JACOBSON ([facility]) FAMPWS During your visit today, we [...] she two weeks ago, she went to [facility] for these complaints. I do not have [...] Abs Lymph 1.00 - 4.00 k/uL 2.18 [place]% % 6.3 Abs [place] 0.00 - 0.86 k/uL 0.34 Eosin% % [...] pain. We will reach out and get [facility] records to assess need for further labs, [...] on in your abdomen. Mineral oil and Tuckerman oil should also be avoided. Should I [...] Flash Jacobson APRN.CNP 11/17/2017 8:58 AM Signed [facility] Records received from 11/07/2017. Normal CBC, BMP. [...] on in your abdomen. Mineral oil and Tuckerman oil should also be avoided. Should I [...] by FLASH JACOBSON CNP on 11/17/17 Normal [facility] PROGRESSon 11-17-2017 Protein mass conc HNO ID: [id number] Author: Flash Yun) Indira Service: (none) Author Type: Nurse Practitioner Type: Progress Notes Filed: 11/17/2017 8:58 AM Note Text: [facility] Records received from 11/07/2017. Normal CBC, BMP. Negative Hcg urine. UA showed moderate blood (patient noted to be on menses). Flash Jacobson APRN.CNP Normal [facility] Protein mass conc HNO ID: [id number] Author: Flash Jacobson Service: (none) Author Type: [...] she two weeks ago, she went to [facility] for these complaints. I do not have [...] Abs Lymph 1.00 - 4.00 k/uL 2.18 [place]% % 6.3 Abs [place] 0.00 - 0.86 k/uL 0.34 Eosin% % [...] pain. We will reach out and get [facility] records to assess need for further labs, testing. Flash Jacobson APRN.INTERVENTIONAL TECHNOLOGIST Normal [facility] .Auto Diffon 11-08-2017 Basophils Auto #/vol (Bld) 0.00 10 3/mcL Normal 0.00-0.19 [facility] ([place]) Comment on above: Performed By: #### C BC, ADIFF, ANEU, BMP, GFR ####[facility] [address] [address] Basophils/100 WBC Auto (Bld) 0.3 % Normal 0.0-2.5 [facility] ([place] Comment on above: Performed By: #### C BC, ADIFF, ANEU, BMP, GFR ####[facility] [address] [place], [place] [address] Eosinophils 0.00 10 3/mcL Normal 0.00-0.40 [facility] ([place] Comment on above: Performed By: #### C BC, ADIFF, ANEU, BMP, GFR ####[facility] [address] [place], [place] [address] Eosinophils/100 leukocytes 0.3 % Normal 0.0-7.0 [facility] ([place] Comment on above: Performed By: #### C BC, ADIFF, ANEU, BMP, GFR ####[facility] [address] [place], [place] [address] Lymphocytes 1.00 10 3/mcL Normal 0.77-3.85 [facility] ([place] Comment on above: Performed By: #### C BC, ADIFF, ANEU, BMP, GFR ####[facility] [address] [place], [place] [address] Lymphocytes/100 leukocytes 20.4 % Normal 10.0-50.0 [facility] ([place] Comment on above: Performed By: #### C BC, ADIFF, ANEU, BMP, GFR ####[facility] [address] [place], [place] [address] Monocytes 0.60 10 3/mcL Normal 0.15-1.00 [facility] ([place] Comment on above: Performed By: #### C BC, ADIFF, ANEU, BMP, GFR ####[facility] [address] [place], [place] [address] Monocytes/100 leukocytes 11.0 % Normal 1.7-13.0 [facility] ([place] Comment on above: Performed By: #### C BC, ADIFF, ANEU, BMP, GFR ####[facility] [address] [place], [place] [address] Neutrophils/100 WBC Auto (Bld) 68.0 % Normal 37.0-80.0 [facility] ([place] Comment on above: Performed By: #### C BC, ADIFF, ANEU, BMP, GFR ####[facility] [address] [place], [place] [address] .GFRon 11-08-2017 GFR Non- >60 Normal [facility] ([place] Comment on above: Result Comment: GFR Population [...] C BC, ADIFF, ANEU, BMP, GFR ####[facility] [address] [place], [place] [address] GFR >60 Normal [facility] ([place] Comment on above: Result Comment: GFR Population [...] C BC, ADIFF, ANEU, BMP, GFR ####[facility] [address] [place], [place] [address] .NEUABSon 11-08-2017 Neutrophil, Absolute 3.50 10 3/mcL Normal 2.85-6.16 A [facility] ([place]) Comment on above: Performed By: #### C BC, ADIFF, ANEU, BMP, GFR ####[facility] [address] [place], [place] [address] .Urinalysis Microscopic (AO) on 11-08-2017 UA Squam Epithelial 0-5 Invalid Interpretation Code None Seen [facility] ([place] Comment on above: Performed By: #### U A, UAMICAO, PREGU ####[facility] [address] [place], [place] [address] UA WBC None Seen Normal None Seen [facility] ([place] Comment on above: Performed By: #### U A, UAMICAO, PREGU ####[facility] [address] [place] [address] Urine, erythrocytes 15-25 Invalid Interpretation Code None Seen [facility] ([place] Comment on above: Performed By: #### U A, UAMICAO, PREGU ####[facility] [address] [place] [address] BMPon 11-08-2017 BUN/Creatinine Ratio 10 ratio Normal 7-27 [facility] ([place] Comment on above: Performed By: #### C BC, ADIFF, ANEU, BMP, GFR ####[facility] [address] [place] [address] Calcium 9.6 mg/dL Normal 8.4-10.2 [facility] ([place] Comment on above: Performed By: #### C BC, ADIFF, ANEU, BMP, GFR ####[facility] [address] [place] [address] CO2 27 mmol/L Normal 22-29 [facility] ([place] Comment on above: Performed By: #### C BC, ADIFF, ANEU, BMP, GFR ####[facility] [address] [place] [address] Creatinine 0.8 mg/dL Normal 0.6-1.2 [facility] ([place] Comment on above: Performed By: #### C BC, ADIFF, ANEU, BMP, GFR ####[facility] [address] [place] [address] Electrolyte Balance 8.0 mEq/L Normal [facility] ([place]) Comment on above: Performed By: #### C BC, ADIFF, ANEU, BMP, GFR ####[facility] [address] [place], [place] [address] Glucose mass conc 99 mg/dL Normal 70-105 [facility] ([place] Comment on above: Performed By: #### C BC, ADIFF, ANEU, BMP, GFR ####[facility] [address] [place], [place] [address] Urea nitrogen 8.0 mg/dL Normal 7.0-18.0 [facility] ([place] Comment on above: Performed By: #### C BC, ADIFF, ANEU, BMP, GFR ####[facility] [address] [place], [place] [address] Chloride 105 mmol/L Normal 98-107 [facility] ([place] Comment on above: Performed By: #### C BC, ADIFF, ANEU, BMP, GFR ####[facility] [address] [place], [place] [address] Potassium molar conc 3.8 mmol/L Normal 3.5-5.1 [facility] ([place] Comment on above: Performed By: #### C BC, ADIFF, ANEU, BMP, GFR ####[facility] [address] [place], [place] [address] Sodium 140 mmol/L Normal 136-146 [facility] ([place] Comment on above: Performed By: #### C BC, ADIFF, ANEU, BMP, GFR ####[facility] [address] [place], [place] [address] CBCon 11-08-2017 Erythrocyte distribution width Auto Ratio (RBC) 13.2 % Normal 11.5-14.5 [facility] ([place] Comment on above: Performed By: #### C BC, ADIFF, ANEU, BMP, GFR ####[facility] [address] [place], [place] [address] Erythrocytes (RBC) 4.74 10 6/mcL Normal 4.20-5.40 [facility] ([place]) Comment on above: Performed By: #### C BC, ADIFF, ANEU, BMP, GFR ####[facility] [address] [place], [place] [address] Hematocrit (HCT) 41.8 % Normal 37.0-47.0 [facility] ([place]) Comment on above: Performed By: #### C BC, ADIFF, ANEU, BMP, GFR ####[facility] [address] [place], [place] [address] Hemoglobin mass conc (Bld) 14.5 G/dL Normal 12.0-16.0 [facility] ([place] Comment on above: Performed By: #### C BC, ADIFF, ANEU, BMP, GFR ####[facility] [address] [place], [place] [address] MCH 30.6 pg Normal 27.0-31.2 [facility] ([place] Comment on above: Performed By: #### C BC, ADIFF, ANEU, BMP, GFR ####[facility] [address] [place], [place] [address] MCHC mass conc (RBC) 34.7 G/dL Normal 33.0-37.0 [facility] ([place] Comment on above: Performed By: #### C BC, ADIFF, ANEU, BMP, GFR ####[facility] [address] [place], [place] [address] MCV 88.3 fL Normal 80.0-94.0 [facility] ([place] Comment on above: Performed By: #### C BC, ADIFF, ANEU, BMP, GFR ####[facility] [address] [place], [place] [address] Platelet mean volume (PMV) 9.2 fL Normal 7.4-10.4 [facility] ([place] Comment on above: Performed By: #### C BC, ADIFF, ANEU, BMP, GFR ####[facility] [address] [place], [place] [address] Platelets 243 10 3/mcL Normal 130-400 [facility] ([place] Comment on above: Performed By: #### C BC, ADIFF, ANEU, BMP, GFR ####[facility] [address] [place], [place] [address] WBC (Leukocytes) 5.10 10 3/mcL Normal 4.60-10.80 [facility] ([place] Comment on above: Performed By: #### C BC, ADIFF, ANEU, BMP, GFR ####[facility] [address] [place], [place] [address] ED Note-Provideron 8 Protein Normal [facility] ([place] PREGUon 11-08-2017 HCG ( test) Ql (U) Negative Normal [facility] ([place] Comment on above: Performed By: #### U A, UAMICAO, PREGU ####[facility] [address] [place], [place] [address] test (u) int HCG not detected. Invalid Interpretation Code [facility] ([place] Comment on above: Performed By: #### U A, UAMICAO, PREGU ####[facility] [address] [place], [place] [address] Pat Eduon 11-08-2017 Pat Edu Normal [facility] ([place] Patient Summary Documentson 11-08-2017 Patient Summary Documents Normal [facility] ([place] UAon 11-08-2017 UA Appear Clear Normal Clear [facility] ([place] Comment on above: Performed By: #### U A, UAMICAO, PREGU ####[facility] [address] [place], [place] [address] UA Blood Moderate Invalid Interpretation Code Negative [facility] ([place] Comment on above: Performed By: #### U A, UAMICAO, PREGU ####[facility] [address] [place], [place] [address] UA Leuk Est Negative Normal Negative [facility] ([place] Comment on above: Performed By: #### U A, UAMICAO, PREGU ####[facility] [address] [place], [place] [address] UA Nitrite Negative Normal Negative [facility] ([place] Comment on above: Performed By: #### U A, UAMICAO, PREGU ####[facility] [address] [place], [place] [address] UA pH 6.0 Normal [facility] ([place] Comment on above: Performed By: #### U A, UAMICAO, PREGU ####[facility] [address] [place], [place] [address] UA Protein Negative Normal Negative [facility] ([place] Comment on above: Performed By: #### U A, UAMICAO, PREGU ####[facility] [address] [place], [place] [address] UA Spec Grav 1.015 Normal [facility] ([place] Comment on above: Performed By: #### U A, UAMICAO, PREGU ####[facility] [address] [place], [place] [address] UA Specimen Type Clean Catch [facility] ([place] Comment on above: Performed By: #### U A, UAMICAO, PREGU ####[facility] [address] [place], [place] [address] UA Urobilinogen 0.2 E.U./dL Normal [facility] ([place] Comment on above: Performed By: #### U A, UAMICAO, PREGU ####[facility] [address] [place], [place] [address] Urine, color Yellow Normal [facility] ([place] Comment on above: Performed By: #### U A, UAMICAO, PREGU ####[facility] [address] [place], [place] [address] Urine, glucose Negative Normal Negative [facility] ([place] Comment on above: Performed By: #### U A, UAMICAO, PREGU ####[facility] [address] [place], [place] [address] Urine, ketones presence Negative Normal Negative A [facility] ([place] Comment on above: Performed By: #### U A, UAMICAO, PREGU ####[facility] [address] [place], [place] [address] Urine, urobilinogen Negative Normal Negative [facility] ([place] Comment on above: Performed By: #### U A, UAMICAO, PREGU ####[facility] [address] [place], [place] [address] COVID-19 virus antigen assay SARS-CoV-2 (COVID-19) Ag IA.rapid Ql (Resp) [facility] Work Phone: Vital Signs Date Time Vital Sign Value Performing Clinician Sammie hernandez 08-08-2023 15:26-0400 Body height 167.[address] Marbella Park Work Phone: [facility] 08-08-2023 15:24-0400 Body mass index (BMI) [Ratio] 28.4 kg/m2 Dr. Marbella Park Work Phone: [facility] 08-08-2023 15:24-0400 Body weight [address] Marbella Park Work Phone: [facility] 08-08-2023 15:24-0400 Diastolic blood pressure 83 mm[Hg] Dr. Marbella Park Work Phone: [facility] 08-08-2023 15:24-0400 Systolic blood pressure 127 mm[Hg] Dr. Marbella Park Work Phone: [facility] 11-27-2022 15:51-0400 Body height 167.[address] Marbella Park Work Phone: [facility] 11-27-2022 15:42-0400 Body mass index (BMI) [Ratio] 28.3 kg/m2 Dr. Marbella Park Work Phone: [facility] 11-27-2022 15:42-0400 Body weight 79.[address] Marbella Park Work Phone: [facility] 11-27-2022 15:42-0400 Diastolic blood pressure 76 mm[Hg] Dr. Marbella Park Work Phone: [facility] 11-27-2022 15:42-0400 Systolic blood pressure 113 mm[Hg] Dr. Marbella Park Work Phone: [facility] 07-03-2022 14:09-0400 Body height 167.[address] Marbella Park Work Phone: [facility] 12-27-2021 08:45-0400 Body temperature 98.5 [degF] Dr. Marbella Park Work Phone: [facility] Work Phone: 12-27-2021 08:45-0400 Diastolic blood pressure 62 mm[Hg] Dr. Marbella Park Work Phone: [facility] Work Phone: 12-27-2021 08:45-0400 Heart rate 73 /min Dr. Marbella Park Work Phone: [facility] Work Phone: 12-27-2021 08:45-0400 Respiratory rate 14 /min Dr. Marbella Park Work Phone: [facility] Work Phone: 12-27-2021 08:45-0400 SaO2% (BldA) [Mass fraction] 98 % Dr. Marbella Park Work Phone: [facility] Work Phone: 12-27-2021 08:45-0400 Systolic blood pressure 112 mm[Hg] Dr. Marbella Park Work Phone: [facility] Work Phone: 09-04-2021 08:50-0400 Body height 167.[address] Marbella Park Work Phone: [facility] Work Phone: 09-04-2021 08:50-0400 Body mass index (BMI) [Ratio] 26.9 kg/m2 Dr. Marbella Park Work Phone: [facility] Work Phone: 09-04-2021 08:50-0400 Body weight 75.[address] Marbella Park Work Phone: [facility] Work Phone: 09-04-2021 08:50-0400 Diastolic blood pressure 78 mm[Hg] Dr. Marbella Park Work Phone: [facility] Work Phone: 09-04-2021 08:50-0400 Systolic blood pressure 110 mm[Hg] Dr. Marbella Park Work Phone: [facility] Work Phone: Encounters Encounter Date Encounter Type Care Provider Facility Start: 03-03-2025 ambulatory Salvador Chi Amrit [facility] Start: 09-09-2024 ambulatory Paty Fieldblu Facility :[facility] Start: 06-29-2024 ambulatory Salvador Chi Amrit [facility]LS Facili ty:[facility] Start: 06-08-2024 End: 06-18-2024 ambulatory Salvador Chi Amrit OLS Facility:[facility] Start: 04-19-2024 End: 04-19-2024 ambulatory Efewongbe Oleghe Facility:[facility] Start: 03-31-2024 End: 03-31-2024 ambulatory Efewongbe Oleghe Facility:[facility] Start: 03-17-2024 End: 03-17-2024 ambulatory Efewongbe Oleghe Facility:[facility] Start: 03-12-2024 ambulatory Efewongbe Oleghe Facili ty:[facility] Start: 03-10-2024 End: 03-10-2024 ambulatory Efewongbe Oleghe Facility:[facility] Start: 03-08-2024 ambulatory Efewongbe Oleghe Facili ty:[facility] Start: 03-04-2024 ambulatory Crystal Leonardo Fa cility:[facility] Start: 03-04-2024 End: 03-05-2024 Evaluation and management of inpatient Crystal Leonardo Facility:[facility] Start: 02-24-2024 End: 02-24-2024 ambulatory MD [facility] Start: 11-25-2023 End: 11-25-2023 ambulatory CHIP BACON [facility] Start: 10-28-2023 End: 10-28-2023 ambulatory NO PRIMARY CARE [facility] Start: 09-03-2023 End: 09-03-2023 ambulatory NO PRIMARY CARE [facility] Start: 08-08-2023 End: 08-08-[address] Marbella Park Work Phone: [facility] Work Phone: Start: 08-08-2023 End: 08-08-[address] Marbella Park Work Phone: [facility] Specimen Work Phone: Start: 08-08-2023 End: 08-08-[address] Marbella Park Work Phone: [facility] Work Phone: Start: 02-07-2023 End: 02-07-[address] Marbella Park Work Phone: [facility] Work Phone: Start: 02-07-2023 End: 02-07-[address] Marbella Park Work Phone: [facility] Work Phone: Start: 02-06-2023 End: 02-06-2023 ambulatory [facility] Start: 02-06-2023 Encounter for genera l adult medical examination without abnormal findings [facility] Start: 01-27-2023 Non-patient / Non-visit Dr. Kelvin Park Work Phone: [facility] Start: 01-26-2023 End: 02-18-[address] Marbella Park Work Phone: [facility] Work Phone: Start: 01-26-2023 End: 02-18-[address] Marbella Park Work Phone: [facility] Start: 01-26-[address] Thomas aPrk Work Phone: [facility] Start: 01-20-2023 End: 01-20-[address] Mar[facility]ella Park [facility] Start: 01-15-2023 End: 01-18-[address] Marbella Park Work Phone: [facility] Start: 01-15-2023 End: 01-18-[address] Marbella Park Work Phone: [facility] Work Phone: Start: 01-15-2023 End: 01-15-[address] Marbella Park Work Phone: [facility] Work Phone: Start: 01-03-2023 End: 01-18-[address] Marbella Park Work Phone: [facility] Work Phone: Start: 01-03-2023 End: 01-18-[address] Marbella Park Work Phone: [facility] Start: 12-09-2022 End: 12-09-[address] Marbella Park Work Phone: [facility] Work Phone: Start: 12-09-2022 End: 12-09-[address] Marbella Park Work Phone: [facility], [facility] Work Phone: Start: 11-27-2022 End: 11-27-[address] Marbella Park Work Phone: [facility] Work Phone: Start: 07-30-2022 End: 08-18-[address] Marbella Park Work Phone: [facility] Work Phone: Start: 07-30-2022 End: 08-18-[address] Marbella Park Work Phone: [facility] Start: 07-17-2022 End: 07-19-[address] Marbella Park Work Phone: [facility] Work Phone: Start: 07-17-2022 End: 07-19-[address] Marbella Park Work Phone: [facility] Start: 07-17-[address] Thomas Park Work Phone: [facility] Start: 07-13-2022 End: 07-13-[address] Marbella Park Work Phone: [facility] Work Phone: Start: 07-13-2022 End: 07-13-[address] Marbella Park Work Phone: [facility] Start: 07-03-2022 End: 07-03-2022 Patient encounter procedure Dr. Marbella Park Work Phone: [facility] Start: 05-31-[address] Preet Park Work Phone: [facility] Start: 05-03-2022 End: 05-21-[address] Marbella Park Work Phone: [facility] Work Phone: Start: 05-03-2022 End: 05-21-[address] Marbella Park Work Phone: [facility] Start: 03-26-2022 End: 03-26-[address] Marbella Park Work Phone: [facility] Work Phone: Start: 03-26-2022 End: 03-26-[address] Marbella Park Work Phone: [facility] Start: 02-26-2022 End: 03-20-[address] Marbella Park Work Phone: [facility] Work Phone: Start: 02-26-2022 End: 03-20-[address] Marbella Park Work Phone: [facility] Start: 01-16-2022 End: 01-18-[address] Marbella Park Work Phone: [facility] Start: 12-27-2021 End: 12-27-[address] Marbella Park Work Phone: [facility] Start: 12-17-2021 End: 12-19-[address] Marbella Park Work Phone: [facility] Work Phone: Start: 12-17-2021 End: 12-19-[address] Marbella Park Work Phone: [facility] Start: 09-04-2021 End: 09-04-[address] Marbella Park Work Phone: [facility] Start: 08-11-2018 End: 08-12-2018 Patient encounter procedure FLASH INDIRA [facility] Start: 05-26-2018 Patient encounter procedure MOHIT (GREASE CUP FILLER) [facility] Start: 05-20-2018 End: 06-12-2018 Patient encounter procedure MOHIT (GREASE CUP FILLER) [facility] Start: 05-11-2018 End: 05-12-2018 Patient encounter procedure FLASH (INTERVENTIONAL TECHNOLOGIST) INDIRA [facility] Start: 03-25-2018 End: 03-26-2018 Patient encounter procedure CATALINA (INTERVENTIONAL TECHNOLOGIST) ANNALISE [facility] Start: 11-17-2017 End: 11-18-2017 Patient encounter procedure FLASH (INTERVENTIONAL TECHNOLOGIST) INDIRA [facility] Start: 11-07-2017 End: 11-08-2017 Emergency department patient visit MARK HARVYE Facility:B Procedures Date Procedure Procedure Detail Performing [...] Phone: Start: 01-03-[address] Marbella Park Work Phone: Start: 12-09-2022 Pelvic echography [...] Start: 08-08-2023 Liquid based cervical cytology screening [facility] Start: 01-20-2023 Chlamydia trachomatis (PCR) Chlamydia trachomatis (PCR) [facility] Start: 01-20-2023 Neisseria gonorrhoeae (PCR) Neisseria gonorrhoeae (PCR) [facility] Start: 01-20-2023 Thyroid stimulating hormone measurement [facility] Start: 01-20-2023 Varicella-zoster virus antibody IgG measurement [facility] Start: 01-20-2023 [facility] Start: 07-13-2022 Dehydroepiandrosterone sulfate (DHEA-S) [Mass/volume] in Serum or Plasma [facility] Start: 07-13-2022 Testosterone Free [Mass/volume] in Serum or Plasma [facility] Start: 03-26-2022 Procedure [facility] Work Phone: 17-Hydroxyprogestero ne [Mass/volume] in Serum or Plasma [facility] Alanine aminotransfe rase [Enzymatic activity/volume] in Serum or Plasma [facility] Albumin [Mass/volume ] in Serum or Plasma [facility] Alkaline phosphatase [Enzymatic activity/volume] in Serum or Plasma [facility] Anion gap measurement [place] Aspartate aminotrans ferase [Enzymatic activity/volume] in Serum or Plasma [facility] Bilirubin, total measurement [facility] BUN/Creatinine ratio [facility] Calcium [Mass/volume ] in Serum or Plasma [facility] Carbon dioxide, tota l [Moles/volume] in Serum or Plasma [facility] CBC W Auto Different ial panel - Blood [facility] Chlamydia trachomatis [place] Chloride [Moles/volu me] in Serum or Plasma [facility] Creatinine [Moles/vo lume] in Serum or Plasma [facility] Dehydroepiandrostero ne sulfate (DHEA-S) [Mass/volume] in Serum or Plasma [facility] Glucose [Mass/volume ] in Serum or Plasma [facility] Hepatitis B surface antigen measurement [facility] Hepatitis C antibody measurement [facility] HIV 1+2 Ab+HIV1 p24 Ag [Presence] in Serum or Plasma by Immunoassay [facility] Measurement of renal function [facility] Neisseria gonorrhoea e DNA [Presence] in Genital specimen by EDMOND with probe detection [facility] Path report.final Dx Spec [facility] Potassium [Moles/vol ume] in Serum or Plasma [facility] Procedure [facility] Work Phone: Prolactin [Mass/volu me] in Serum or Plasma [facility] Rubella IgG measurement [facility] Sodium [Moles/volume ] in Serum or Plasma [facility] Total protein measurement [facility] Treponema sp Ab [Pre sence] in Serum [facility] Urea nitrogen [Mass/ volume] in Serum or Plasma [facility] US Pelvis [facility] US Pelvis transvaginal [facility] Immunizations Immunization Date Immunization Notes [facility]2019 measles, mumps and rubella virus vaccine Dr. Marbella Park Work Phone: [facility] 12-10-2018 measles, mumps and rubella virus vaccine Dr. Marbella Park Work Phone: [facility] Payers Date Payer Category Payer Self-pay [id number] 2023 Unknown [id number] 2017 Private Health Insurance [id number] 1998 Unknown [id number] 1998 Unknown [id number] [id number] 1998 Unknown [id number] [id number] 1998 Unknown [id number] 2.840.1.236021.3.579.2.479 1998 Unknown [id number] [id number] Private Health Insurance [facility] [id number] Unknown [id number] [id number] Unknown [id number] [id number] Unknown [id number] 2.840.1.246475.3.579.2.462 Unknown [id number] 2.840.1.859338.3.579.2.462 Unknown [id number] [id number] Unknown [id number] [id number] Unknown [id number] 2.840.1.031580.3.579.2.462 Unknown [id number] 2.840.1.254487.3.579.2.462 Unknown [id number] 2.840.1.253232.3.579.2.462 Unknown [id number] 2.16840.1.754045.3.579.2.462 Unknown [id number] 2.840.1.243238.3.579.2.462 Unknown [id number] [id number] Unknown [id number] [id number] Social History Date Type Detail Facility Start: 09-04-2021 End: 08-05-2023 Tobacco smoking status NHIS Unknown if ever smoked [facility] Start: 2000 Sex Assigned At Female [facility] Evaluation note Note Date & Type Note Facility Evaluation note Diagnosis Onset Date Encounter for IUD removal no neactive [facility] Work Phone: Evaluation note Note Date & Type Note Facility Evaluation note Diagnosis Onset Date Irritant contact dermatitis due to plant acute [facility] Work Phone: Evaluation note Note Date & Type Note Facility Evaluation note Diagnosis Onset Date Irritant contact dermatitis due to plant acute Encounter for pre-employment health screening examination acute [facility] Work Phone: Evaluation note Note Date & Type Note Facility Evaluation note Diagnosis Onset Date Encounter for pre-employment health screening examination acute [facility] Work Phone: Evaluation note Note Date & Type Note Facility Evaluation note Diagnosis Onset Date Encounter for pre-employment health screening examination acute Irregular menses acute Pelvic pain acute Encounter for routine gyneco logical examination noneactive [facility] Work Phone: Evaluation note Note Date & Type Note Facility Evaluation note Diagnosis Onset Date Irregular menses acute Pelvic pain acute Encounter for routine gyneco logical examination noneactive [facility] Work Phone: Evaluation note Note Date & Type Note Facility Evaluation note Diagnosis Onset Date Infertility acute Irregular menses acute Bipolar 2 disorder chronic [facility] Work Phone: Evaluation note Note Date & Type Note Facility Evaluation note Diagnosis Onset Date Consumes gluten free diet ac [place] Depression acute In vitro fertilization acute Infertility acute Irregular menses acute acute Seasonal allergies acute Supervision of high-risk acute Unicornuate uterus acute Bipolar 2 disorder chronic Generalized anxiety disorder chronic IBS (irritable bowel syndrome) chronic [facility] Work Phone: Summary Purpose Family History [...] Visit 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 Complaint 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 PHYSICAL/[facility] REPROSOURCE BOX Reason for Visit Irritant contact imani matitis due to plant Encounter for pre-employment health screening examination Chief Complaint [facility] TCU PHYSICAL/TC[facility] REPROSOURCE BOX Reason for Visit Encounter for pre-em ployment health screening examination Chief Complaint [facility] PHYSICAL/[facility] [facility] 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 ORDER Reason for Visit Encounter for pre-em ployment health screening examination Irregular menses Pelvic pain Encounter for routine gynecological examination Chief Complaint 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 ORDER Reason for Visit Irregular menses [...] PAIN Pelvic and perineal pain FAX RESULTS [phone] Reason for Visit Infertility Irregular menses Bipolar 2 disorder Chief Complaint discuss difficulty c onceiving PELVIC AND PERINEAL PAIN Pelvic and perineal pain FAX RESULTS [phone] Pelvic and perineal pain Unicornate uterus Reason [...] section and content) DATE CREATED AUTHOR 11/09/2017 [facility] ([place]) DATE CREATED AUTHOR AUTHOR'S ORGANIZ ATION 06/09/2018 [facility] DATE CREATED AUTHOR AUTHOR'S ORGANIZ ATION 08/18/2018 [facility] DATE CREATED AUTHOR AUTHOR'S ORGANIZ ATION 02/12/2023 Dennis Yee [facility] DATE CREATED AUTHOR AUTHOR'S ORGANIZ ATION 02/25/2024 [facility] DATE CREATED AUTHOR AUTHOR'S ORGANIZ ATION 03/02/2025 [facility] Goals (unrecognized section and content) Goals [...] MD Primary Care Provider Active Chip Bacon GREASE CUP FILLER, GREASE CUP FILLER-C Attending Provider, Referring Provider Active Team Status: [...] BE BASED ON THE PRIMARY CLINICAL RECORDS. [facility] provides no warranty or guarantee of the accuracy or completeness of information in this document.
== END | disposition home or self-care (01) ==
LOC: LABSPEC 12:39
PROVIDERS: PCP Family Medicine Geriatric Medicine; Referring Provider Obstetrics & Gynecology; Visit Provider Obstetrics & Gynecology
DX: Z00.00 Encounter for general adult medical examination without abnormal findings (principal)

== ENCOUNTER → 2025-03-21 | Outpatient (CLI) | payer BC, SELFPAY ==
[2025-03-21 16:46] LABS: Hematocrit 38.3 % (37-47); Hemoglobin 13.0 g/dL (12.0-15.0); Immature Granulocytes Count 0.020 X10^3/uL (0.0-0.0); Mean Corp Hgb Conc 33.9 g/dL (32-36); Mean Corpuscular Volume 87.4 fL (81-99); Mean Platelet Vol. 11.0 fl (6.2-12.0); NRBC Flagged by Analyzer 0 % (0-5); Platelet Count 301 K/mm3 (150-450); RBC Distribution Width CV 12.4 % (11.6-14.6); RBC Distribution Width SD 39.7 fl (35.1-43.9); Red Blood Count 4.38 M/mm3 (4.2-5.4); White Blood Count 9.8 K/mm3 (4.4-11.0)
[2025-03-21 18:13] LABS: HIV Nonreactive (Nonreactive); Hepatitis B Surface Antigen Nonreactive (Nonreactive); Hepatitis C Antibody Nonreactive (Nonreactive); Syphilis Antibodies Nonreactive (Nonreactive)
== END | disposition home or self-care (01) ==
LOC: BWCLAB 15:27
PROVIDERS: Obstetrics & Gynecology; PCP Family Medicine Geriatric Medicine; Visit Provider Obstetrics & Gynecology
DX: O09.90 Supervision of high risk pregnancy, unspecified, unspecified trimester (principal)
CPT/HCPCS: 36415; 85025; 86703; 86762; 86780; 86803; 86850; 86900; 86901; 87340